=== PATIENT | female | born 1990 | race Caucasian/White ===

== ENCOUNTER 2019-06-07 21:43 | Emergency (ER) | payer MEDICAID, SELFPAY ==
[2019-06-07 21:48] VITALS: BP 119/67; PULSE 65; RESP 16; TEMP 37.1; O2SAT 99
--- NOTE | 2019-06-07 21:49 | ED.GENADUL_ITS ---
Discharge Plan Disposition Patient Disposition: HOME Condition: Stable Discharge Details Chief Complaint: Orthopedic Clinical Impression: Right wrist sprain Primary Care Provider: Maria Buenrostro ED Provider: Monico Carrillo Home Meds and New Rx's Prescriptions: Continued albuterol sulfate 90 mcg/actuation Hfa Aerosol Inhaler 2 puff INHALATION Q6H PRNRF: 0 Symbicort 80-4.5 mcg/actuation Hfa Aerosol Inhaler 2 puff INHALATION BID PRN (Reason: asthma) RF: 0 Discharge Instructions Instructions: Wrist Sprain (ED) Additional Instructions: If pain continues in a week see your primary care provider if you have pain you can take 1000mg tylenol and 600mg ibuprofen every 6 hours for pain Medical Decision Making 29 yo female comes in with one week of right wrist and hand pain s/p punching shower wall a week ago. 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 Has no swelling, full rom of the wrist and hand but has pain in the anterior right wrist and mid right hand without palpable or visible deformity, normal sensation and pulses. Suspect contusion vs sprain but will xray to eval for fx. No snuffbox tenderness so doubt scahpoid fx. xray negative on mine and vrad red. suspect sprain, will place in wrist splint and advised to f/u with pcp if pain continues in a week Differential Diagnosis Differential Diagnosis: sprain, strain, fx, contusion Imaging Data Radiologic Study: Attestation: I personally reviewed and interpreted this imaging study as follows: Imaging: X-Ray Radiologist's impression: no acute findings HPI General Mode of arrival: ambulatory . Date/Time Provider Initiated Documentation: 06/07/19 21:44 . Limitations to Documentation: no limitations . Information obtained by: patient . History of Present Illness 29 year old F presents to the emergency department with the chief complaint of right wrist pain, described as moderate, and is localized to the right and upper extremity. Patient reports no radiation. Patient started experiencing this week(s) (1) and it has been constant. No relieving factors improve symptom(s), No exacerbating factors reported . Patient did receive the following treatments prior to arrival, none Related Data Home Medications Medication Instructions Recorded Confirmed Symbicort 2 puff INHALATION BID PRN 06/07/19 06/07/19 albuterol sulfate 2 puff INHALATION Q6H PRN 06/07/19 06/07/19 Allergies Allergy/AdvReac Type Severity Reaction Status Date / Time latex Allergy Severe Itching Unverified 06/07/19 21:50 Sulfa (Sulfonamide Allergy Severe Skin Rash Unverified 06/07/19 21:50 Antibiotics) Review of Systems All systems reviewed & are unremarkable except as noted in HPI and below Constitutional Constitutional: Denies chills, Denies fever(s) and Denies weakness ENT Ears, Nose, Mouth, and Throat: Denies change in voice Cardiovascular Cardiovascular: Denies chest pain and Denies dyspnea Respiratory Respiratory: Denies cough and Denies dyspnea Gastrointestinal Gastrointestinal: Denies abdominal pain, Denies nausea and Denies vomiting Musculoskeletal Musculoskeletal: Denies joint swelling Neurologic Neurologic: Denies weakness PENDING SALE TO [facility] Medical History (Updated 06/07/19 @ 21:53 by La Nena Choe) Asthma (Chronic) Costochondritis (Acute) Surgical History (Updated 06/07/19 @ 21:53 by La Nena Choe) History of section (Chronic) History of partial hysterectomy (Acute) Hx of cholecystectomy (Chronic) Social History Smoking/Tobacco Use Status: Never Alcohol Intake: never Substance use type: does not use Additional Social history: pt is not alone; interacts well with friend at bedside Exam Const General: no acute distress Orientation: alert HENMT Head: normal to inspection Ears: external ears normal General nose exam: external nose normal Mouth: moist mucous membranes Eyes General: appearance normal, both eyes and all related structures Neck Neck: normal visual inspection Resp Effort & Inspection: normal respiratory effort and able to speak in complete sentences Cardio Rate: regular rate Skin General skin exam: no rashes or lesions noted Neuro General: alert and oriented x3 Extrem General: normal to inspection Psych Mental Status: mental status grossly normal
--- NOTE | 2019-06-07 22:02 | DI.RAD_ITS ---
EXAM: XR WRIST RT COMPLETE CLINICAL HISTORY: pain, s/p punching wall a week ago. TECHNIQUE: 2D digital imaging was performed. COMPARISON: No exams were available for comparison FINDINGS: BONES: No acute fracture is present. No bony destructive lesion is seen. JOINTS: The carpal bones are normally aligned. SOFT TISSUE: Normal. IMPRESSION: Unremarkable radiographs of the right wrist.
--- NOTE | 2019-06-07 22:19 | DI.VRAD_ITS ---
PROCEDURE INFORMATION: Exam: XR Right Wrist Exam date and time: 06/07/2019 10:04 PM Age: 29 years old Clinical indication: Other: Pain S/P punching wall a week ago TECHNIQUE: Imaging protocol: XR Right wrist. Views: 3 or more views. COMPARISON: No relevant prior studies available. FINDINGS: Bones/joints: There is no fracture or dislocation. Alignment and joint spaces are within normal limits. Soft tissues: Unremarkable as seen. IMPRESSION: No acute findings. Dictated and Authenticated by: Renzo Allen MD. Ordering:CASSANDRA Marc MD
== END 2019-06-07 22:30 | disposition home or self-care (01) ==
PROVIDERS: Emergency Provider Emergency Medicine; PCP Nurse Practitioner Family
DX: S63.501A Unspecified sprain of right wrist, initial encounter (principal); W22.09XA Striking against other stationary object, initial encounter
CPT/HCPCS: 99283; 73110; L3807

== ENCOUNTER 2019-06-15 08:57 | Emergency (ER) | payer MEDICAID, SELFPAY ==
[2019-06-15 09:02] VITALS: BP 111/69; PULSE 86; RESP 16; TEMP 36.9; O2SAT 99
--- NOTE | 2019-06-15 09:29 | ED.GENADUL_ITS ---
Discharge Plan Disposition Patient Disposition: HOME Condition: Stable Discharge Details Chief Complaint: Orthopedic Clinical Impression: Contusion of left hip Primary Care Provider: Kimberley,Local ED Provider: Elidia Ponce Home Meds and New Rx's Prescriptions: Continued albuterol sulfate 90 mcg/actuation Hfa Aerosol Inhaler 2 puff INHALATION Q6H PRNRF: 0 Symbicort 80-4.5 mcg/actuation Hfa Aerosol Inhaler 2 puff INHALATION BID PRN (Reason: asthma) RF: 0 Discharge Instructions Instructions: Contusion in Adults (ED) Additional Instructions: Rest, ice and elevate your left hip as much as possible. Alternate tylenol and motrin as needed and directed for pain. Follow-up with your primary care doctor in 1 week as needed. Return to the emergency department with any worsening or new concerning symptoms. Discharge Data Discharge Physician: Elidia Ponce Medical Decision Making 0910 -- 29-year-old female presents with left hip pain after slip and fall on ice last night. Patient denies head injury, other extremity pain, chest pain, abdominal pain, neck or back pain. Patient's main complaint is left hip pain which is worse with weightbearing. She has an area of ecchymosis to her left lateral hip but no obvious deformity. She is neurovascularly intact. She has a history of hysterectomy. Will give a dose of ibuprofen and send for left hip x-ray. 1025 --x-rays negative. Patient advised on the importance of RICE, tylenol, mot rin. Advised to follow up with the primary care doctor for re-evaluation. Usual and customary return precautions given prior to discharge. Medical Records Medical records reviewed: Yes I reviewed the patient's medical records. Imaging Data Radiologic Study: Radiologist's impression: XR Left Hip with Pelvis when Performed Exam date and time: 06/15/2019 9:46 AM Age: 29 years old Clinical indication: S/P fall onto L hip, R/O acute fracture TECHNIQUE: Imaging protocol: XR Left hip with pelvis when performed. Views: 2 or 3 views. COMPARISON: No relevant prior studies available. FINDINGS: Bones/joints: No fracture. No dislocation. No hip joint space narrowing. The symphysis pubis and sacroiliac joints are not diastatic. There is sacralization of L5 segment on the left. Pelvic tilt. Soft tissues: No acute soft tissue abnormality. IMPRESSION: No fracture. HPI General Mode of arrival: ambulatory . Date/Time Provider Initiated Documentation: 06/15/19 09:11 . Limitations to Documentation: no limitations . Information obtained by: patient . History of Present Illness 29 year old F presents to the emergency department with the chief complaint of Left hip pain, Patient started experiencing this day(s) (1) and it has been constant. Immobilization improves symptom(s), Movement worsens symptoms . Patient notes no other symptoms.. Patient did receive the following treatments prior to arrival, none Related Data Home Medications Medication Instructions Recorded Confirmed Symbicort 2 puff INHALATION BID PRN 06/07/19 06/15/19 albuterol sulfate 2 puff INHALATION Q6H PRN 06/07/19 06/15/19 Allergies Allergy/AdvReac Type Severity Reaction Status Date / Time latex Allergy Severe Itching Unverified 06/15/19 09:07 Sulfa (Sulfonamide Allergy Severe Skin Rash Unverified 06/15/19 09:07 Antibiotics) General Stated Complaint: Orthopedic NICO: 4 Review of Systems All systems reviewed & are unremarkable except as noted in HPI and below PFSH Medical History Asthma (Chronic) Costochondritis (Acute) Surgical History History of section (Chronic) History of partial hysterectomy (Acute) Hx of cholecystectomy (Chronic) Social History Smoking/Tobacco Use Status: Never Alcohol Intake: current Alcohol Intake frequency: a few times a month Alcohol type: beer and wine Drug use: Never Substance use type: does not use Additional Social history: pt is not alone; interacts well with friend at bedside Exam Const General: cooperative, healthy appearing and no acute distress HENMT Head: normal to inspection Face and sinus: normal facial exam Eyes General: appearance normal, both eyes and all related structures Pupils: PERRL EOM: EOM intact bilaterally Neck Neck: normal visual inspection and No submandibular swelling Lymphatic: no lymphadenopathy noted Chest Chest: normal inspection of the chest and no tenderness Resp Effort & Inspection: normal respiratory effort and able to speak in complete sentences Auscultation: clear to auscultation bilaterally Cardio Rate: regular rate Rhythm: regular rhythm GI Inspection: normal to inspection Palpation: soft, not firm, not rigid and nontender Auscultation: normal bowel sounds Back/Spine/Pelvis Thoracic/Lumbar Spine: thoracic and lumbar spine normal to inspection Back/spine/pelvis image: 1. 3x3cm area of ecchymoses. No open wounds. Skin General skin exam: no rashes or lesions noted Neuro General: alert, awake and oriented x3 Cognition: normal cognition Speech: speech normal Motor: muscle tone normal throughout Sensory Exam: no sensory deficits noted Extrem General: full ROM, normal capillary refill, no calf tenderness bilaterally and no edema Other: Pain in left hip with range of motion. Tenderness to palpation of left lateral hip. Left DP/PT pulses intact. Psych Appearance: grossly normal Mental Status: mental status grossly normal Speech and Movement: speech and movement normal Affect: normal affect Course Vital Signs Vital signs: Vital Signs Temperature 98.4 F 06/15/19 09:02 Pulse 86 06/15/19 09:02 Respiratory Rate 16 06/15/19 09:02 Blood Pressure 111/69 06/15/19 09:02 Pulse Oximetry 99 06/15/19 09:02 Temperature 98.4 F 06/15/19 09:02 Temperature Source Temporal Artery Scan 06/15/19 09:02 Pulse 86 06/15/19 09:02 Respiratory Rate 16 06/15/19 09:02 Respiratory Effort Non-Labored 06/15/19 09:05 Blood Pressure 111/69 06/15/19 09:02 Blood Pressure Position Sitting 06/15/19 09:02 Pulse Oximetry 99 06/15/19 09:02 Oxygen Delivery Method Room Air 06/15/19 09:02 Oxygen Flow Rate 0 06/15/19 09:02 Pain Level 8 06/15/19 09:05
[2019-06-15] MEDS: Ibuprofen 600 MG TAB PO (09:39)
--- NOTE | 2019-06-15 09:42 | DI.RAD_ITS ---
EXAM: XR HIP LT COMPLETE AP PELVIS INDICATION: s/p fall onto L hip, r/o acute fracture. COMPARISON: No exams were available for comparison TECHNIQUE: 2D digital imaging was performed. FINDINGS: No acute fracture or dislocation. The soft tissues are unremarkable. IMPRESSION: No acute fracture or dislocation.
--- NOTE | 2019-06-15 10:06 | DI.VRAD_ITS ---
PROCEDURE INFORMATION: Exam: XR Left Hip with Pelvis when Performed Exam date and time: 06/15/2019 9:46 AM Age: 29 years old Clinical indication: S/P fall onto L hip, R/O acute fracture TECHNIQUE: Imaging protocol: XR Left hip with pelvis when performed. Views: 2 or 3 views. COMPARISON: No relevant prior studies available. FINDINGS: Bones/joints: No fracture. No dislocation. No hip joint space narrowing. The symphysis pubis and sacroiliac joints are not diastatic. There is sacralization of L5 segment on the left. Pelvic tilt. Soft tissues: No acute soft tissue abnormality. IMPRESSION: No fracture. Dictated and Authenticated by: Jared Alcala MD. Ordering:ORIANA Brenner MD
== END 2019-06-15 10:37 | disposition home or self-care (01) ==
PROVIDERS: Emergency Provider Physician Assistant
DX: S70.01XA Contusion of right hip, initial encounter (principal); W00.0XXA Fall on same level due to ice and snow, initial encounter
CPT/HCPCS: 99283; 73502

== ENCOUNTER 2020-08-04 12:25 | Emergency (ER) | payer MEDICAID, SELFPAY ==
[2020-08-04] VITALS (38 sets, daily range): BP systolic 111–130; BP diastolic 44–118; PULSE 64–90; RESP 11–21; TEMP 36.7–36.9; O2SAT 96–100
--- NOTE | 2020-08-04 12:15 | RT.EKG_ITS ---
APPROVED REPORT Exam: Resting ECG Patient Location: E HR:78 bpm ECG Measurements Heart Rate 78 AXIS SD 138 P 87 QRSd 90 QRS 37 QT 367 T 61 QTc 418 Conclusion Sinus rhythm...normal P axis, V-rate 60- 99 I have reviewed and interpreted ECG and agree with software generated interpretation.
[2020-08-04] MEDS: Normal Saline Flush 10 ML SYR IVP (12:38)
--- NOTE | 2020-08-04 12:51 | ED.GENADUL_ITS ---
Discharge Plan Disposition Patient Disposition: HOME Condition: Stable Discharge Details Clinical Impression: Paresthesia, Arm pain, left, Leg pain, left, Symptoms of upper respiratory infection (URI) Primary Care Provider: Kimberley,Local ED Provider: Elidia Ponce Home Meds and New Rx's Prescriptions: Continued albuterol sulfate 90 mcg/actuation Hfa Aerosol Inhaler 2 puff INHALATION Q6H PRNRF: 0 budesonide-formoterol [Symbicort] 80-4.5 mcg/actuation Hfa Aerosol Inhaler 2 puff INHALATION BID PRN (Reason: asthma) RF: 0 cyclobenzaprine 10 mg Tablet 10 mg PO PRN PRNRF: 0 Discharge Instructions Instructions: Upper Respiratory Infection (ED), Paresthesia (ED), Lumbar Radiculopathy (ED), Cervical Radiculopathy (ED) Additional Instructions: Drink plenty of fluids and get plenty of rest. Alternate tylenol and motrin as needed and directed for pain. Take your steroids and antiviral prescriptions as given by your primary care doctor as directed until finished. Call your primary care doctor's office tomorrow to schedule follow-up appointment for reevaluation and for referral to neurology if your symptoms do not improve or worsen. Return immediately to the emergency department if you develop any worsening or new concerning symptoms. Referrals: Gali Mccloud MD [ [facility] STAFF PHYSICIAN] - Discharge Data Discharge Date/Time-TO BE ENTERED AT DEPARTURE: 08/04/20 17:36 Discharge Physician: Elidia Ponce Medical Decision Making 1245 -- 30-year-old female with a history of asthma, costochondritis and fibromyalgia presents for resolving cold symptoms from a few days ago, headache and left facial droop for the past 2 days, and left-sided head and arm and leg numbness and weakness for the past hour. EKG on arrival notes a rate of 78, sinus, no STEMI, nondiagnostic. She has an abnormal speech affect and appears to be stuttering her words but this does not appear slurred and she is oriented x3. Patient is able to move her left upper and lower extremities but appears to have weakness that seems most likely associated with pain. No facial droop or eyelid drooping noted. She is neurovascularly intact. She appears nontoxic. No meningeal signs. Differential diagnosis includes acute CVA, meningitis, coronavirus, fibromyalgia flare, electrolyte abnormality, dehydration, viral syndrome. Will place an IV, screening labs, urinalysis, CTA head and neck, chest x-ray. Will give IV fluids, IV Tylenol, Decadron and reassess. 1450 --labs and imaging reviewed. Normal white blood cell count. Lactate 2.3. Troponin negative. CRP negative. Urinalysis negative. Rapid Covid negative. CTA head and neck negative. Chest x-ray negative. Will refer for MRI/MRA brain to further assess soft tissue including acute ischemic CVA, MS. Patient reassessed and she is feeling better. She has been able to ambulate and move her left arm and leg much better. She is complaining still of some pain in her left arm and leg. This presentation does not appear consistent with acute stroke. Discussed that I do not think this is consistent with meningitis but that diagnosis of this would involve lumbar puncture which patient is refusing at this time. 1720 --MRI/MRA negative for acute findings. Patient has normal speech and is moving all extremities normally. As her paresthesias were associated with pain, suspect this may be more of a radiculopathy rather than neurologic. Patient feels much better and feels good to go home. She was able to ambulate to the commode in the room without difficulty. Repeat lactate normalized. 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 Medical Records Medical records reviewed: Yes I reviewed the patient's medical records. Imaging Data Radiologic Study: Radiologist's impression: CT BRAIN NECK CTA CLINICAL HISTORY: Left-sided weakness and numbness, r/o acute cva. TECHNIQUE: Imaging Protocol: Axial CT angiography was performed with multi- slice acquisition and multi-planar and/or 3D reconstructions. CONTRAST MATERIAL: Intravenous: Omnipaque 350 Contrast volume:85cc COMPARISON: No exams were available for comparison FINDINGS: CTA Neck W: Aortic arch anatomy: Conventional. Anterior circulation: There is no significant atherosclerotic disease in the common carotid arteries nor at the level of the carotid bifurcations. There is also no significant stenosis at the origin and more distal aspects of the internal carotid arteries in both sides of the neck. These vessels are also demonstrated to be patent in the skull base-carotid canals. Posterior circulation: Both vertebral arteries originate in conventional fashion off of the subclavian arteries. There is no significant stenosis at their origins nor within the foramen transverse area and both exhibit normal luminal diameters within the foramen transverse area with no evidence of intraluminal thrombus nor vertebral artery dissection. At the skull base both vertebral arteries are thin as a contribute to the formation of the basilar artery. CTA Brain W: Anterior circulation: Both internal carotid arteries are patent within the skull base-carotid canals as well as within the cavernous sinuses. The supraclinoid aspects of both internal carotid arteries are patent. No aneurysms. Middle cerebral arteries are patent bilaterally out to the sylvian fissure branches. Both A1 segments are patent as are the anterior cerebral arteries and there is no evidence of aneurysm at the level of the anterior communicating artery. Posterior circulation: Basilar artery distally gives off superior cerebellar arteries. Above this level the basilar artery terminates as a patent left posterior cerebral artery. The right posterior cerebral artery arises off of the right superior cerebellar artery approximately 5 millimeters distal to the origin of this vessel. The right posterior cerebral artery also receives flow from a thin posterior communicating artery on the right side of the [id number]. There is no posterior communicating artery on the left side of the [id number]. There are no aneurysms evident. CT BRAIN: There is no evidence of intracranial hemorrhage, mass effect, or shift of midline structures. No extra-axial fluid collections. Ventricles are not enlarged or shifted. There are no ring enhancing lesions in the brain. No obvious abnormal meningeal enhancement. Incidentally noted are post inflammatory retention cysts in the left maxillary sinus, not associated with fluid levels. Other visualized paranasal sinuses are clear. IMPRESSION: 1. Patent carotid arteries in the neck and intracranial compartment. Middle cerebral arteries and anterior cerebral arteries are also patent. 2. Patent vertebral arteries in the neck although they are somewhat thin at the skull base where they contribute to the formation of the basilar artery, this possibly on developmental basis. No evidence of vertebral artery dissection. 3. Some variant anatomy is noted at the level of the origin of the right posterior cerebral artery, as described above. No evidence of intracranial hemorrhage no ring enhancing lesions in the brain. No abnormal meningeal enhancement. XR CHEST 2V PA LATERAL CLINICAL HISTORY: cough, sob, r/o acute disease. TECHNIQUE: 2D digital imaging was performed. COMPARISON: No exams were available for comparison FINDINGS: Heart size is normal. The mediastinum is not widened. Lungs are clear. No infiltrates nor pleural effusions. IMPRESSION: No acute pulmonary findings. MR Angiogram Head Without and With Contrast, Arteries Exam date and time: 08/04/2020 4:34 PM Age: 30 years old Clinical indication: Weakness and other: Left face, arm, leg numb/weak TECHNIQUE: Imaging protocol: MR angiogram head without and with intravenous contrast. Exam focused on the arteries. 3D rendering (Not supervised by radiologist): MIP and/or 3D reconstructed images were created by the technologist. COMPARISON: CT BRAIN NECK CTA 08/04/2020 2:08 PM FINDINGS: ANTERIOR CIRCULATION: Right internal carotid artery: Intracranial segment is patent with no significant stenosis. No aneurysm. Right middle cerebral artery: No occlusion or significant stenosis. No aneurysm. Right anterior cerebral artery: No occlusion or significant stenosis. No aneurysm. Left internal carotid artery: Intracranial segment is patent with no significant stenosis. No aneurysm. Left middle cerebral artery: No occlusion or significant stenosis. No aneurysm. Left anterior cerebral artery: No occlusion or significant stenosis. No aneurysm. POSTERIOR CIRCULATION: Right vertebral artery: No occlusion or significant stenosis. No aneurysm. Left vertebral artery: No occlusion or significant stenosis. No aneurysm. Basilar artery: No occlusion or significant stenosis. No aneurysm. Right posterior cerebral artery: No occlusion or significant stenosis. No aneurysm. Left posterior cerebral artery: No occlusion or significant stenosis. No aneurysm. IMPRESSION: No MRA evidence of intracranial arterial occlusion or significant stenosis. MR Head Without Contrast Exam date and time: 08/04/2020 4:33 PM Age: 30 years old Clinical indication: Weakness, extremity and weakness, facial and other: Face, arm, leg numb/weak; Left TECHNIQUE: Imaging protocol: MR of the head without contrast. 3D rendering (Not supervised by radiologist): MIP and/or 3D reconstructed images were created by the technologist. COMPARISON: CT BRAIN NECK CTA 08/04/2020 2:08 PM FINDINGS: Brain: No intracranial hemorrhage or extra-axial fluid collection. No evidence of mass effect or midline shift. No white matter abnormalities. No restricted diffusion to suggest acute infarct. Cerebral ventricles: Ventricles, cisterns, and sulci are normal. Bones/joints: Unremarkable. Paranasal sinuses: Left maxillary sinus retention cysts. Mastoid air cells: No mastoid effusion. Orbital cavity: Unremarkable. Soft tissues: Unremarkable. IMPRESSION: No acute intracranial findings. Lab Data Lab results reviewed: Yes I reviewed the patient's lab results. Labs: Laboratory Tests Range/Units 08/04/20 08/04/20 08/04/20 12:36 12:36 13:30 WBC (4.4-10.8) 10^3/uL 8.07 RBC (3.93-5.22) 10^6/uL 5.37 H Hgb (11.2-15.7) g/dL 14.0 Hct (36.0-46.0) % 44.0 MCV (80-95) fL 81.9 MCH (27.0-33.0) pg 26.1 L MCHC (32.0-36.0) % 31.8 L RDW (11.7-14.6) % 11.9 Plt Count (130-400) 10^3/uL 128 L MPV (8.0-11.0) fL 14.1 H Immature Gran % 0.4 Neutrophils % 77.0 Lymphocytes % 14.9 Monocytes % 5.1 Eosinophils % 2.1 Basophils % 0.5 Nucleated RBC % % 0 Absolute Neutrophils (1.2-6.7) 10^3/uL 6.22 Absolute Lymphocytes (1.2-3.4) 10^3/uL 1.20 Absolute Monocytes (0.1-0.8) 10^3/uL 0.41 Absolute Eosinophils (0.0-0.7) 10^3/uL 0.17 Absolute Basophils (0.0-0.2) 10^3/uL 0.04 PT (9.3-11.0) sec INR (0.9-1.1) APTT (21.0-27.5) sec D-Dimer (<500) ng/mlFEU VBG Lactate (0.6-1.4) mmol/L Sodium (136-145) mmol/L 141 Potassium (3.5-5.1) mmol/L 3.9 Chloride (98-107) mmol/L 103 Carbon Dioxide (21.0-32.0) mmol/L 26.4 Anion Gap (3-11) mmol/L 11.6 H BUN (7-18) mg/dL 5 L Creatinine (0.55-1.02) mg/dL 0.6 Estimated GFR/1.73 m2 (mL/min/1.73m2) >= 60.00 Glucose (74-106) mg/dL 99 Calcium (8.5-10.1) mg/dL 9.3 Magnesium (1.8-2.4) mg/dL 2.3 Total Bilirubin (0.2-1.0) mg/dL 0.5 AST (15-37) U/L 15 ALT (14-59) U/L 37 Alkaline Phosphatase (46-116) U/L 71 Creatine Kinase (26-192) U/L Troponin I (<0.06) ng/mL < 0.05 C-Reactive Protein (0.0-0.3) mg/dL Total Protein (6.4-8.2) g/dL 8.0 Albumin (3.4-5.0) g/dL 4.2 Urine Color (Yellow) Yellow Urine Clarity (Clear) Clear Urine pH (5-8) 7.0 Ur Specific Dane (1.005-1.025) 1.020 Urine Protein (Negative) mg/dL Negative Urine Ketones (Negative) mg/dL Negative Urine Blood (Negative) Negative Urine Nitrite (Negative) Negative Urine Bilirubin (Negative) Negative Urine Urobilinogen (Up TO 0.2) EU/dL 0.2 Ur Leukocyte Esterase (Negative) Negative Urine Glucose (Negative) mg/dL Negative COVID-19 Source SARS-CoV-2 (PCR) (Negative) Influenza Type A (PCR) (Negative) Influenza Type B (PCR) (Negative) RSV (PCR) (Negative) Range/Units 08/04/20 08/04/20 08/04/20 13:32 13:36 13:36 WBC (4.4-10.8) 10^3/uL RBC (3.93-5.22) 10^6/uL Hgb (11.2-15.7) g/dL Hct (36.0-46.0) % MCV (80-95) fL MCH (27.0-33.0) pg MCHC (32.0-36.0) % RDW (11.7-14.6) % Plt Count (130-400) 10^3/uL MPV (8.0-11.0) fL Immature Gran % Neutrophils % Lymphocytes % Monocytes % Eosinophils % Basophils % Nucleated RBC % % Absolute Neutrophils (1.2-6.7) 10^3/uL Absolute Lymphocytes (1.2-3.4) 10^3/uL Absolute Monocytes (0.1-0.8) 10^3/uL Absolute Eosinophils (0.0-0.7) 10^3/uL Absolute Basophils (0.0-0.2) 10^3/uL PT (9.3-11.0) sec INR (0.9-1.1) APTT (21.0-27.5) sec D-Dimer (<500) ng/mlFEU VBG Lactate (0.6-1.4) mmol/L 2.3 H* Sodium (136-145) mmol/L Potassium (3.5-5.1) mmol/L Chloride (98-107) mmol/L Carbon Dioxide (21.0-32.0) mmol/L Anion Gap (3-11) mmol/L BUN (7-18) mg/dL Creatinine (0.55-1.02) mg/dL Estimated GFR/1.73 m2 (mL/min/1.73m2) Glucose (74-106) mg/dL Calcium (8.5-10.1) mg/dL Magnesium (1.8-2.4) mg/dL Total Bilirubin (0.2-1.0) mg/dL AST (15-37) U/L ALT (14-59) U/L Alkaline Phosphatase (46-116) U/L Creatine Kinase (26-192) U/L 53 Troponin I (<0.06) ng/mL C-Reactive Protein (0.0-0.3) mg/dL 0.19 Total Protein (6.4-8.2) g/dL Albumin (3.4-5.0) g/dL Urine Color (Yellow) Urine Clarity (Clear) Urine pH (5-8) Ur Specific Dane (1.005-1.025) Urine Protein (Negative) mg/dL Urine Ketones (Negative) mg/dL Urine Blood (Negative) Urine Nitrite (Negative) Urine Bilirubin (Negative) Urine Urobilinogen (Up TO 0.2) EU/dL Ur Leukocyte Esterase (Negative) Urine Glucose (Negative) mg/dL COVID-19 Source Nasopharynx SARS-CoV-2 (PCR) (Negative) Negative Influenza Type A (PCR) (Negative) Negative Influenza Type B (PCR) (Negative) Negative RSV (PCR) (Negative) Negative Range/Units 08/04/20 08/04/20 13:36 16:43 WBC (4.4-10.8) 10^3/uL RBC (3.93-5.22) 10^6/uL Hgb (11.2-15.7) g/dL Hct (36.0-46.0) % MCV (80-95) fL MCH (27.0-33.0) pg MCHC (32.0-36.0) % RDW (11.7-14.6) % Plt Count (130-400) 10^3/uL MPV (8.0-11.0) fL Immature Gran % Neutrophils % Lymphocytes % Monocytes % Eosinophils % Basophils % Nucleated RBC % % Absolute Neutrophils (1.2-6.7) 10^3/uL Absolute Lymphocytes (1.2-3.4) 10^3/uL Absolute Monocytes (0.1-0.8) 10^3/uL Absolute Eosinophils (0.0-0.7) 10^3/uL Absolute Basophils (0.0-0.2) 10^3/uL PT (9.3-11.0) sec 9.9 INR (0.9-1.1) 1.0 APTT (21.0-27.5) sec 25.2 D-Dimer (<500) ng/mlFEU 179 VBG Lactate (0.6-1.4) mmol/L 1.4 Sodium (136-145) mmol/L Potassium (3.5-5.1) mmol/L Chloride (98-107) mmol/L Carbon Dioxide (21.0-32.0) mmol/L Anion Gap (3-11) mmol/L BUN (7-18) mg/dL Creatinine (0.55-1.02) mg/dL Estimated GFR/1.73 m2 (mL/min/1.73m2) Glucose (74-106) mg/dL Calcium (8.5-10.1) mg/dL Magnesium (1.8-2.4) mg/dL Total Bilirubin (0.2-1.0) mg/dL AST (15-37) U/L ALT (14-59) U/L Alkaline Phosphatase (46-116) U/L Creatine Kinase (26-192) U/L Troponin I (<0.06) ng/mL C-Reactive Protein (0.0-0.3) mg/dL Total Protein (6.4-8.2) g/dL Albumin (3.4-5.0) g/dL Urine Color (Yellow) Urine Clarity (Clear) Urine pH (5-8) Ur Specific Dane (1.005-1.025) Urine Protein (Negative) mg/dL Urine Ketones (Negative) mg/dL Urine Blood (Negative) Urine Nitrite (Negative) Urine Bilirubin (Negative) Urine Urobilinogen (Up TO 0.2) EU/dL Ur Leukocyte Esterase (Negative) Urine Glucose (Negative) mg/dL COVID-19 Source SARS-CoV-2 (PCR) (Negative) Influenza Type A (PCR) (Negative) Influenza Type B (PCR) (Negative) RSV (PCR) (Negative) ECG Data Attestation: I personally reviewed and interpreted this ECG (s) as follows: Interpretation: Rate of 78, sinus, no acute ST elevation or depression. CO 138. QRS 90. QTc 418. HPI General Mode of arrival: wheelchair . Date/Time Provider Initiated Documentation: 08/04/20 12:27 . Limitations to Documentation: no limitations . Information obtained by: patient . HPI Narrative: Patient is a 30-year-old female with a history of asthma and fibromyalgia presents with cold-like symptoms a few days ago which have since improved, then development of headache and left-sided facial droop 2 days ago, then onset of left facial and left-sided numbness 1 hour ago while sitting in a car. 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 She had a Covid swab at [facility] 2 hours ago and does not yet know the result. She states her headache feels like a sharp current to her brain. She admits to left-sided neck, diffuse back, worse on the left pain, and some pain in her left arm and left leg. She states she feels that she is also having difficulty speaking and feels confused. She denies any known fever, productive cough, chest pain, abdominal pain, vomiting, urinary symptoms, recent travel or recent known sick contacts. Related Data Home Medications Medication Instructions Recorded Confirmed albuterol sulfate 2 puff INHALATION Q6H PRN 06/07/19 08/04/20 budesonide-formoterol [Symbicort] 2 puff INHALATION BID PRN 06/07/19 08/04/20 cyclobenzaprine 10 mg PO PRN PRN 08/04/20 08/04/20 Allergies Allergy/AdvReac Type Severity Reaction Status Date / Time latex Allergy Severe Itching Unverified 08/04/20 12:43 Sulfa (Sulfonamide Allergy Severe Skin Rash Unverified 08/04/20 12:43 Antibiotics) General Stated Complaint: CVA/TIA NICO: 2 Review of Systems All systems reviewed & are unremarkable except as noted in HPI and below Constitutional Constitutional: Reports as per HPI, Reports body ache(s), Denies chills, Reports fatigue, Denies fever(s), Reports headache(s), Reports poor appetite and Reports weakness Eyes Eyes: Denies blurry vision ENT Ears, Nose, Mouth, and Throat: Denies dizziness, Reports headache(s), Reports nasal congestion, Reports nasal discharge, Denies sore throat and Denies throat swelling Cardiovascular Cardiovascular: Denies chest pain and Reports dyspnea Respiratory Respiratory: Reports cough and Reports dyspnea Gastrointestinal Gastrointestinal: Denies abdominal pain, Denies diarrhea and Denies vomiting Genitourinary Genitourinary: Denies hematuria and Denies dysuria Musculoskeletal Musculoskeletal: Reports back pain, Reports numbness and Reports tingling Integumentary/Breasts Skin/Breast: Denies lesions and Denies rash Neurologic Neurologic: Denies dizziness, Reports headache(s), Reports localized weakness, Reports numbness, Reports tingling and Reports weakness Endocrine Endocrine: Reports fatigue Allergic/Immunologic Allergic/Immunologic: Denies throat swelling [facility] Medical History (Updated 08/04/20 @ 17:25 by Elidia Ponce DO) Asthma Costochondritis Surgical History History of section History of partial hysterectomy Hx of cholecystectomy Social History Smoking/Tobacco Use Status: Never Smoking risk assessment performed?: Yes Alcohol Intake: current Alcohol Intake frequency: a few times a month Alcohol type: beer and wine Drug use: Never Substance use type: does not use Do you feel safe at home: Yes Do you feel safe in your relationship?: Yes Exam Const General: cooperative and healthy appearing Orientation: alert and awake HENMT Head: normal to inspection Ears: hearing grossly normal bilaterally, external ears normal and TM's normal bilaterally General nose exam: external nose normal Face and sinus: normal facial exam Mouth: oral mucosae normal Teeth and gingiva: dentition normal Throat: posterior oropharynx normal Eyes General: appearance normal, both eyes and all related structures Eyelids: eyelids normal Pupils: PERRL EOM: EOM intact bilaterally Neck Neck: normal visual inspection Lymphatic: no lymphadenopathy noted Chest Chest: normal inspection of the chest Resp Effort & Inspection: normal respiratory effort and able to speak in complete sentences Auscultation: clear to auscultation bilaterally Cardio Rate: regular rate Rhythm: regular rhythm GI Inspection: normal to inspection Palpation: soft, not firm, no guarding, no hepatosplenomegaly, no masses and nontender Auscultation: normal bowel sounds Back/Spine/Pelvis Back: no CVA tenderness Skin General skin exam: no rashes or lesions noted Neuro General: patient alert and patient awake Cognition: normal cognition Speech: speech normal Gait: normal gait Motor: muscle tone normal throughout Sensory Exam: no sensory deficits noted Extrem General: normal to inspection, full ROM and capillary refill normal Psych Appearance: grossly normal Mental Status: mental status grossly normal Speech and Movement: speech and movement normal Affect: normal affect Thought Process: normal Course Vital Signs Vital signs: Vital Signs Temperature 98.4 F 08/04/20 12:38 Pulse 76 08/04/20 12:38 Respiratory Rate 12 08/04/20 12:38 Blood Pressure 124/80 08/04/20 12:38 Pulse Oximetry 99 08/04/20 12:38 Temperature 98.4 F 08/04/20 12:38 Temperature Source Skin 08/04/20 12:38 Pulse 76 08/04/20 12:38 Respiratory Rate 12 08/04/20 12:38 Respiratory Effort 08/04/20 12:48 Blood Pressure 124/80 08/04/20 12:38 Pulse Oximetry 99 08/04/20 12:38 Oxygen Delivery Method Room Air 08/04/20 12:38 Oxygen Flow Rate 0 08/04/20 12:38 Pain Level 5 08/04/20 12:38 Comment 08/04/20 12:38
[2020-08-04] MEDS: Normal Saline 1,000 ML 1000 ML IV ×2 (13:30→15:20)
--- NOTE | 2020-08-04 13:30 | DI.CT_ITS ---
EXAM: CT BRAIN NECK CTA CLINICAL HISTORY: Left-sided weakness and numbness, r/o acute cva. TECHNIQUE: Imaging Protocol: Axial CT angiography was performed with multi-slice acquisition and mu lti-planar and/or 3D reconstructions. CONTRAST MATERIAL: Intravenous: Omnipaque 350 Contrast volume:85cc COMPARISON: No exams were available for comparison FINDINGS: CTA Neck W: Aortic arch anatomy: Conventional. Anterior circulation: There is no significant atherosclerotic disease in the common carotid arteries nor at the level of th e carotid bifurcations. There is also no significant stenosis at the origin and more distal aspects of the internal carotid arteries in both sides of the neck. These vessels are also demonstrated to b e patent in the skull base-carotid canals. Posterior circulation: Both vertebral arteries originate in conventional fashion off of the subclavian arteries. There is n o significant stenosis at their origins nor within the foramen transverse area and both exhibit betsy l luminal diameters within the foramen transverse area with no evidence of intraluminal thrombus nor vertebral artery dissection. At the skull base both vertebral arteries are thin as a contribute to the formation of the basilar ar [place]. CTA Brain W: Anterior circulation: Both internal carotid arteries are patent within the skull base-carotid canals as well as within the cavernous sinuses. The supraclinoid aspects of both internal carotid arteries are patent. No aneury sms. Middle cerebral arteries are patent bilaterally out to the sylvian fissure branches. Both A1 s egments are patent as are the anterior cerebral arteries and there is no evidence of aneurysm at the level of the anterior communicating artery. Posterior circulation: Basilar artery distally gives off superior cerebellar arteries. Above this level the basilar artery terminates as a patent left posterior cerebral artery. The right posterior cerebral artery arises of f of the right superior cerebellar artery approximately 5 millimeters distal to the origin of this ve ssel. The right posterior cerebral artery also receives flow from a thin posterior communicating art rey on the right side of the [id number]. There is no posterior communicating artery on the lef t side of the [id number]. There are no aneurysms evident. CT BRAIN: There is no evidence of intracranial hemorrhage, mass effect, or shift of midline structures. No ext ra-axial fluid collections. Ventricles are not enlarged or shifted. There are no ring enhancing les ions in the brain. No obvious abnormal meningeal enhancement. Incidentally noted are post inflammatory retention cysts in the left maxillary sinus, not associated with fluid levels. Other visualized paranasal sinuses are clear. IMPRESSION: 1. Patent carotid arteries in the neck and intracranial compartment. Middle cerebral arteries and an terior cerebral arteries are also patent. 2. Patent vertebral arteries in the neck although they are somewhat thin at the skull base where the y contribute to the formation of the basilar artery, this possibly on developmental basis. No eviden ce of vertebral artery dissection. 3. Some variant anatomy is noted at the level of the origin of the right posterior cerebral artery, as described above. No evidence of intracranial hemorrhage no ring enhancing lesions in the brain. No abnormal meningeal enhancement. If clinically indicated follow-up MRI/MRA can be performed. RADIATION DOSE DELIVERED: 1,769.24mGy.cm Total DLP DATA REPOSITORY: All CT scans at this facility are submitted to the National Radiology Data Registry (NRDR) Dose Index Registry (DIR) with the [employer] (ACR). RADIATION OPTIMIZATION: All CT scans at this facility use at least one of these dose optimization te chniques: automated exposure control; mA and/or kV adjustment per patient size (includes targeted exa ms where dose is matched to clinical indication); or iterative reconstruction.
[2020-08-04] MEDS: Dexamethasone 10 MG/ML VIAL IVP (13:37)
[2020-08-04 13:42] LABS: Lactate 2.3 mmol/L (0.6-1.4)
[2020-08-04 13:45] LABS: Bilirubin Negative (Negative); Blood Negative (Negative); Clarity Clear (Clear); Glucose Negative (Negative); Ketones Negative (Negative); Leukocyte Esterase Negative (Negative); Nitrite Negative (Negative); Urobilinogen 0.2 EU/dL (Up TO 0.2)
[2020-08-04 13:45] LABS: Source Nasopharynx
[2020-08-04 13:46] LABS: Abs Immature Grans 0.03 10^3/uL (0.0-0.06); Absolute Basophil Count 0.04 10^3/uL (0.0-0.2); Absolute Eosinophil Count 0.17 10^3/uL (0.0-0.7); Absolute Monocyte Count 0.41 10^3/uL (0.1-0.8); Absolute Neutrophil Count 6.22 10^3/uL (1.2-6.7); Basophils % 0.5; Eosinophils % 2.1; Immature Grans % 0.4; Lymphocytes % 14.9; MCH 26.1 pg (27.0-33.0); MCHC 31.8 % (32.0-36.0); MCV 81.9 fL (80-95); MPV 14.1 fL (8.0-11.0); Monocytes % 5.1; Nucleated RBC 0 %; Platelet Count 128 10^3/uL (130-400); RBC 5.37 10^6/uL (3.93-5.22); RDW 11.9 % (11.7-14.6); RDW-SD 35.9 fL; WBC 8.07 10^3/uL (4.4-10.8)
[2020-08-04] MEDS: Normal Saline - Diluent 50 ML VIAL IV (14:05)
[2020-08-04] MEDS: Omnipaque 350 MG/ML 100 ML BTL 85 ML IJ (14:05)
[2020-08-04 14:06] LABS: PTT Activated 25.2 sec (21.0-27.5); Prothrombin Time 9.9 sec (9.3-11.0)
[2020-08-04 14:11] LABS: C-Reactive Protein 0.19 mg/dL (0.0-0.3); Creatine Kinase 53 U/L (26-192)
--- NOTE | 2020-08-04 14:20 | DI.RAD_ITS ---
EXAM: XR CHEST 2V PA LATERAL CLINICAL HISTORY: cough, sob, r/o acute disease. TECHNIQUE: 2D digital imaging was performed. COMPARISON: No exams were available for comparison FINDINGS: Heart size is normal. The mediastinum is not widened. Lungs are clear. No infiltrates nor pleural effusions. IMPRESSION: No acute pulmonary findings. DATA REPOSITORY: RADIATION DOSE DELIVERED:
[2020-08-04 14:22] LABS: ALT 37 U/L (14-59); AST 15 U/L (15-37); Albumin 4.2 g/dL (3.4-5.0); Alkaline Phosphatase 71 U/L (46-116); Anion Gap 11.6 mmol/L (3-11); BUN 5 mg/dL (7-18); Bilirubin, Total 0.5 mg/dL (0.2-1.0); CO2 26.4 mmol/L (21.0-32.0); CREATININE 0.6 mg/dL (0.55-1.02); Calcium 9.3 mg/dL (8.5-10.1); Chloride 103 mmol/L (98-107); Glucose 99 mg/dL (74-106); Magnesium 2.3 mg/dL (1.8-2.4); Potassium 3.9 mmol/L (3.5-5.1); Sodium 141 mmol/L (136-145)
[2020-08-04 14:24] LABS: COVID-19 PCR Negative (Negative); Influenza A PCR Negative (Negative); Influenza B PCR Negative (Negative); RSV PCR Negative (Negative)
[2020-08-04 14:25] LABS: Troponin I < 0.05 ng/mL (<0.06)
[2020-08-04] MEDS: ACETAMINOPHEN 1,000 MG/100 ML BTL 400 MG IVPB (14:40)
--- NOTE | 2020-08-04 14:45 | DI.MRI_ITS ---
EXAM: MR ANGIO BRAIN WO CLINICAL HISTORY: L face/arm/leg numb/weak, r/o acute cva TECHNIQUE: Multiplanar multisequence MRI of the brain was performed. COMPARISON: MR MR BRAIN WO from 08/04/2020 MR MR BRAIN WO from 08/04/2020 FINDINGS: CEREBRAL PARENCHYMA: No evidence of intracranial hemorrhage, mass effect nor shift of midline structu re. No extraaxial fluid collections. Ventricles are not enlarged nor shifted. There is no significant focal signal abnormality in the cerebellar hemispheres nor within the ho, m idbrain, and thalami. There is no abnormal signal abnormality in the periventricular white matter. There is no significant focal signal abnormality evident on diffusion imaging to suggest acute ischem ic event. 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 PITUITARY GLAND: No obvious mass nor parasellar abnormality. No obvious abnormality in the cavernous sinuses. FLOW VOIDS: The expected flow void are noted. No evidence of obvious aneurysm nor obvious vascular ma lformation. PARANASAL SINUSES: Post inflammatory retention cysts are noted in the left maxillary sinus not associ ated with a fluid level. Right maxillary sinus is clear as are the sphenoid and frontal sinuses and ethmoidal air cells. ORBITS: No obvious findings. IMPRESSION: No acute intracranial findings on this noninfused MRI scan of the brain. Incidentally noted is mild cerebellar tonsillar ectopia. See separate brain MRA report DATA REPOSITORY:
--- NOTE | 2020-08-04 14:45 | DI.MRI_ITS ---
EXAM: MR BRAIN WO CLINICAL HISTORY: L facial/arm/leg numbness/weakness TECHNIQUE: Multiplanar multisequence MRI of the brain was performed. Both noninfused and contrast i nfused sequences were performed. IV Contrast injected was cc Dotarem. COMPARISON: CR CT scan of the brain performed earlier today FINDINGS: CEREBRAL PARENCHYMA: No evidence of intracranial hemorrhage, mass effect nor shift of midline structu re. No extraaxial fluid collections. Ventricles are not enlarged nor shifted. There is no significant focal signal abnormality in the cerebellar hemispheres nor within the ho, m idbrain, and thalami. There is no abnormal signal abnormality in the periventricular white matter. 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 PITUITARY GLAND: No mass nor parasellar abnormality. No obvious abnormality in the cavernous sinuses. FLOW VOIDS: The expected flow void are noted. No evidence of obvious aneurysm nor obvious vascular ma lformation. PARANASAL SINUSES: Retention cyst in left maxillary sinus. ORBITS: No obvious abnormal findings. IMPRESSION: 1. No acute intracranial findings on this non infused MRI scan of the brain. 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 2. See separate MRA dictation DATA REPOSITORY:
[2020-08-04] MEDS: Ketorolac 30 MG/ML VIAL IVP (15:02)
[2020-08-04 15:08] LABS: D-Dimer 179 ng/mlFEU (<500)
[2020-08-04 16:48] LABS: Lactate 1.4 mmol/L (0.6-1.4)
--- NOTE | 2020-08-04 17:01 | DI.VRAD_ITS ---
PROCEDURE INFORMATION: Exam: MR Head Without Contrast Exam date and time: 08/04/2020 4:33 PM Age: 30 years old Clinical indication: Weakness, extremity and weakness, facial and other: Face, arm, leg numb/weak; Left TECHNIQUE: Imaging protocol: MR of the head without contrast. 3D rendering (Not supervised by radiologist): MIP and/or 3D reconstructed images were created by the technologist. COMPARISON: CT BRAIN NECK CTA 08/04/2020 2:08 PM FINDINGS: Brain: No intracranial hemorrhage or extra-axial fluid collection. No evidence of mass effect or midline shift. No white matter abnormalities. No restricted diffusion to suggest acute infarct. Cerebral ventricles: Ventricles, cisterns, and sulci are normal. Bones/joints: Unremarkable. Paranasal sinuses: Left maxillary sinus retention cysts. Mastoid air cells: No mastoid effusion. Orbital cavity: Unremarkable. Soft tissues: Unremarkable. IMPRESSION: No acute intracranial findings. Dictated and Authenticated by: Anthony Fernandes MD. Ordering:ORIANA Brenner MD
--- NOTE | 2020-08-04 17:03 | DI.VRAD_ITS ---
PROCEDURE INFORMATION: Exam: MR Angiogram Head Without and With Contrast, Arteries Exam date and time: 08/04/2020 4:34 PM Age: 30 years old Clinical indication: Weakness and other: Left face, arm, leg numb/weak TECHNIQUE: Imaging protocol: MR angiogram head without and with intravenous contrast. Exam focused on the arteries. 3D rendering (Not supervised by radiologist): MIP and/or 3D reconstructed images were created by the technologist. COMPARISON: CT BRAIN NECK CTA 08/04/2020 2:08 PM FINDINGS: ANTERIOR CIRCULATION: Right internal carotid artery: Intracranial segment is patent with no significant stenosis. No aneurysm. Right middle cerebral artery: No occlusion or significant stenosis. No aneurysm. Right anterior cerebral artery: No occlusion or significant stenosis. No aneurysm. Left internal carotid artery: Intracranial segment is patent with no significant stenosis. No aneurysm. Left middle cerebral artery: No occlusion or significant stenosis. No aneurysm. Left anterior cerebral artery: No occlusion or significant stenosis. No aneurysm. POSTERIOR CIRCULATION: Right vertebral artery: No occlusion or significant stenosis. No aneurysm. Left vertebral artery: No occlusion or significant stenosis. No aneurysm. Basilar artery: No occlusion or significant stenosis. No aneurysm. Right posterior cerebral artery: No occlusion or significant stenosis. No aneurysm. Left posterior cerebral artery: No occlusion or significant stenosis. No aneurysm. IMPRESSION: No MRA evidence of intracranial arterial occlusion or significant stenosis. Dictated and Authenticated by: Anthony Fernandes MD. Ordering:ORIANA Brenner MD
[2020-08-05 14:56] LABS: ESR 12 mm/hr (<or=20)
== END 2020-08-04 17:36 | disposition home or self-care (01) ==
PROVIDERS: Emergency Provider Physician Assistant
DX: M79.605 Pain in left leg (principal); M79.602 Pain in left arm; R20.2 Paresthesia of skin; R09.89 Other specified symptoms and signs involving the circulatory and respiratory systems; Z20.822 Contact with and (suspected) exposure to COVID-19
CPT/HCPCS: 70496; 70498; 70544; 80053; 82550; 85652; 87637; 93005; 96361; 96374; 96375; 99285; 70551; 71046; 81003; 83605; 83735; 84484; 85025; 85379; 85610; 85730; 86140; 93010; 99284; J0131; J1100; J1885; J3490

== ENCOUNTER 2020-08-05 11:29 | Emergency (ER) | payer MEDICAID, SELFPAY ==
[2020-08-05] VITALS (28 sets, daily range): BP systolic 108–123; BP diastolic 61–72; PULSE 67–102; RESP 11–19; TEMP 36.7–37; O2SAT 97–100
--- NOTE | 2020-08-05 11:51 | W.ED.GENAD ---
Discharge Plan Disposition Patient Disposition: HOME Condition: Improving Discharge Details Clinical Impression: Headache, Paresthesia, Arm pain, Leg pain, Weakness of extremity, Cervical disc herniation Primary Care Provider: Kimberley,Local ED Provider: Elidia Ponce Home Meds and New Rx's Prescriptions: Continued albuterol sulfate 90 mcg/actuation Hfa Aerosol Inhaler 2 puff INHALATION Q6H PRNRF: 0 budesonide-formoterol [Symbicort] 80-4.5 mcg/actuation Hfa Aerosol Inhaler 2 puff INHALATION BID PRN (Reason: asthma) RF: 0 cyclobenzaprine 10 mg Tablet 10 mg PO PRN PRNRF: 0 valacyclovir 1 gram Tablet 1,000 mg PO TID RF: 0 prednisone 20 mg Tablet 60 mg PO DAILY RF: 0 Discharge Instructions Instructions: Paresthesia (ED), Lumbar Radiculopathy (ED), Cervical Radiculopathy (ED), General Headache (ED) Additional Instructions: Drink plenty of fluids and get plenty of rest. Take the steroids and antivirals as directed until finished. Your cervical spine MRI noted disc herniation which may be causing some of your arm pain and weakness but would not be associated with headache, slurred speech or blurred vision. Follow-up with your scheduled appointment with your primary care doctor on Sunday. An appointment has been made for you with our neurologist Dr. Mccloud on August 19 at 2 PM. Return immediately to the emergency department if you develop any worsening or new concerning symptoms. Referrals: Gali Mccloud MD [ [facility] STAFF PHYSICIAN] - Discharge Data Discharge Date/Time-TO BE ENTERED AT DEPARTURE: 08/05/20 16:09 Discharge Physician: Elidia Ponce Medical Decision Making 30-year-old female with a history of asthma, costochondritis, fibromyalgia presents for headache, slurred speech, facial droop and right-sided weakness and electric current type pain in her head and right side since this morning. Patient was seen here yesterday for similar symptom presentation but instead involving the left side. She had an MRI and MRI brain which was read as negative by virtual radiology but which noted mild cerebellar ectopia which could be indicative of a Chiari I malformation per our in-house radiologist. She also did have a negative CTA head and neck. She had a negative rapid Covid test. She had unremarkable labs and urinalysis was given Decadron, Toradol and Tylenol and had complete resolution of her symptoms and was able to ambulate out of the ED. Her vitals are within normal limits. As there is a component of pain to her right-sided weakness, does not appear strokelike. No meningeal signs. History and presentation not consistent with meningitis or encephalitis. Still consider psychosomatic etiology such as conversion disorder. Will place an IV, bolus IV fluids, screening labs, IV Toradol and p.o. Valium and reassess. Labs reviewed. White blood cell count 18 with a left shift. Suspect this is most likely due to the steroids. She is afebrile and appears nontoxic. Remainder labs unremarkable. Case discussed with Dr. Mccloud who agrees that this does not sound like meningitis and does not see indication for lumbar puncture at this time. Patient would rather not have a lumbar puncture. She reviewed the MRI and MRA from yesterday and very soft call for a Chiari 1 malformation but recommends a cervical spine MRI to rule out a syrinx. If MRI cervical spine negative, another possible etiology could include hemiplegic migraine. Cervical spine MRI notes Impression: 1. At C5-6 level there is a focal posterior slightly right of center disc protrusion which indents the thecal sac and contacts the cervical cord. The actual osseous canal dimensions at this level are within normal limits and there is no foraminal stenosis nor facet arthropathy at this level. 2. Other mild disc findings as described above at the C4-5 and C7-T1 levels. 3. Mild cerebellar tonsillar ectopia. No evidence of syrinx nor other abnormality of the cervical spinal cord. I do not suspect these incidental findings on the cervical spine MRI are the cause of all of patient's symptoms as she also has headache, blurry vision and slurred speech. On reassessment, patient symptoms resolving and alternating between both legs. She was able to ambulate around the room. She had no demonstratable slurred speech. Her pain improved. Possible diagnosis includes hemiplegic migraine, viral syndrome, etc. She is advised to continue her steroids and antivirals. She has a follow-up appointment with her primary care doctor on Sunday. An appointment was made for her with Dr. Mccloud for follow up on August 19 at 2pm. Usual and customary return precautions given prior to discharge. Medical Records Medical records reviewed: Yes I reviewed the patient's medical records. Imaging Data Radiologic Study: Radiologist's impression: MR CERVICAL SPINE WO CLINICAL HISTORY: headache, R side weakness, r/o syrinx TECHNIQUE: Multiplanar multisequence MRI of the cervical spine was performed without intravenous contrast. COMPARISON: Recent brain imaging studies reviewed FINDINGS: CERVICOMEDULLARY JUNCTION: There is mild cerebellar tonsillar ectopia with mild crowding of the foramen magnum. CERVICAL SPINAL CORD: There is no abnormal signal in the cervical spinal cord and no evidence of focal cord atrophy nor focal cord swelling. No evidence of syrinx. OSSEOUS:There are no cervical fractures evident. No significant osseous lesions in the cervical vertebrae. However, there is straightening of the cervical spine which is most probably related to muscle spasm. INDIVIDUAL LEVELS: C2-3: No disc herniation nor central canal stenosis. No foraminal stenosis. No facet arthropathy. C3-4: No disc herniation nor central canal stenosis.No facet arthropathy. No foraminal stenosis. C4-5: Normal disc height and signal.Mild asymmetric disc bulging right of center which contacts the thecal sac but not the spinal cord. No large disc herniation at this level. Central canal dimensions remain within normal limits. There is no facet arthropathy. No true foraminal stenosis. C5-6: Preserved disc height. However, there is a focal posterior slightly right of center disc protrusion which extends posteriorly 2 millimeters and is 4 millimeters wide. This contacts the cervical cord at this level. There is no abnormal signal within the cord and central osseous canal dimensions are within normal limits. There is no facet arthropathy and the disc herniation does not extend into the exiting neural foramina. There is no foraminal stenosis. C6-7: Normal disc height and signal. No disc herniation or central canal stenosis. No foraminal stenosis. No significant facet arthropathy C7-T1: Normal disc height and signal. There is mild annular bulging without a dominant disc herniation. No central canal stenosis. No foraminal stenosis. No facet arthropathy. No facet arthropathy.No foraminal stenosis. IMPRESSION: 1. At C5-6 level there is a focal posterior slightly right of center disc protrusion which indents the thecal sac and contacts the cervical cord. The actual osseous canal dimensions at this level are within normal limits and there is no foraminal stenosis nor facet arthropathy at this level. 2. Other mild disc findings as described above at the C4-5 and C7-T1 levels. 3. Mild cerebellar tonsillar ectopia. No evidence of syrinx nor other abnormality of the cervical spinal cord. Lab Data Lab results reviewed: Yes I reviewed the patient's lab results. Labs: Laboratory Tests Range/Units 08/05/20 08/05/20 08/05/20 12:05 12:05 12:05 WBC (4.4-10.8) 10^3/uL 18.81 H D RBC (3.93-5.22) 10^6/uL 4.85 Hgb (11.2-15.7) g/dL 12.7 Hct (36.0-46.0) % 39.7 MCV (80-95) fL 81.9 MCH (27.0-33.0) pg 26.2 L MCHC (32.0-36.0) % 32.0 RDW (11.7-14.6) % 12.1 Plt Count (130-400) 10^3/uL 129 L MPV (8.0-11.0) fL 13.6 H Immature Gran % 0.6 Neutrophils % 94.5 Lymphocytes % 3.3 Monocytes % 1.4 Eosinophils % 0.0 Basophils % 0.2 Nucleated RBC % % 0 Absolute Neutrophils (1.2-6.7) 10^3/uL 17.78 H Absolute Lymphocytes (1.2-3.4) 10^3/uL 0.62 L Absolute Monocytes (0.1-0.8) 10^3/uL 0.26 Absolute Eosinophils (0.0-0.7) 10^3/uL 0.00 Absolute Basophils (0.0-0.2) 10^3/uL 0.04 PT (9.3-11.0) sec 10.0 INR (0.9-1.1) 1.0 APTT (21.0-27.5) sec 23.0 VBG Lactate Sodium (136-145) mmol/L 142 Potassium (3.5-5.1) mmol/L 4.0 Chloride (98-107) mmol/L 106 Carbon Dioxide (21.0-32.0) mmol/L 24.3 Anion Gap (3-11) mmol/L 11.7 H BUN (7-18) mg/dL 7 Creatinine (0.55-1.02) mg/dL 0.7 Estimated GFR/1.73 m2 (mL/min/1.73m2) >= 60.00 Glucose (74-106) mg/dL 117 H Calcium (8.5-10.1) mg/dL 8.9 Magnesium (1.8-2.4) mg/dL 2.1 Total Bilirubin (0.2-1.0) mg/dL 0.3 AST (15-37) U/L 15 ALT (14-59) U/L 38 Alkaline Phosphatase (46-116) U/L 75 Troponin I (<0.06) ng/mL < 0.05 Total Protein (6.4-8.2) g/dL 7.6 Albumin (3.4-5.0) g/dL 3.9 Range/Units 08/05/20 13:02 WBC (4.4-10.8) 10^3/uL RBC (3.93-5.22) 10^6/uL Hgb (11.2-15.7) g/dL Hct (36.0-46.0) % MCV (80-95) fL MCH (27.0-33.0) pg MCHC (32.0-36.0) % RDW (11.7-14.6) % Plt Count (130-400) 10^3/uL MPV (8.0-11.0) fL Immature Gran % Neutrophils % Lymphocytes % Monocytes % Eosinophils % Basophils % Nucleated RBC % % Absolute Neutrophils (1.2-6.7) 10^3/uL Absolute Lymphocytes (1.2-3.4) 10^3/uL Absolute Monocytes (0.1-0.8) 10^3/uL Absolute Eosinophils (0.0-0.7) 10^3/uL Absolute Basophils (0.0-0.2) 10^3/uL PT (9.3-11.0) sec INR (0.9-1.1) APTT (21.0-27.5) sec VBG Lactate Cancelled Sodium (136-145) mmol/L Potassium (3.5-5.1) mmol/L Chloride (98-107) mmol/L Carbon Dioxide (21.0-32.0) mmol/L Anion Gap (3-11) mmol/L BUN (7-18) mg/dL Creatinine (0.55-1.02) mg/dL Estimated GFR/1.73 m2 (mL/min/1.73m2) Glucose (74-106) mg/dL Calcium (8.5-10.1) mg/dL Magnesium (1.8-2.4) mg/dL Total Bilirubin (0.2-1.0) mg/dL AST (15-37) U/L ALT (14-59) U/L Alkaline Phosphatase (46-116) U/L Troponin I (<0.06) ng/mL Total Protein (6.4-8.2) g/dL Albumin (3.4-5.0) g/dL HPI General Date/Time Provider Initiated Documentation: 08/05/20 11:47. Limitations to Documentation: no limitations. Information obtained by: patient. HPI Narrative: Patient is a 30-year-old female with a history of fibromyalgia, asthma who presents for headache, slurred speech, right facial droop, right arm weakness, numbness and electric shocklike pain since this morning. Patient was seen here yesterday for similar presentation with headache and symptoms involving the whole left side of her body for which she had an extensive work-up including negative MRI and MRI brain, CTA head and neck, lab work, chest x-ray and urinalysis. Symptoms completely resolved while here in the ED yesterday and patient was able to talk normally and ambulate and was discharged home. Patient states when she returned home she continued to have left leg pain and then this morning at 9 AM she developed electric shocklike worsening headache pain and inability to move her right arm and right leg with electric current going through them. 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 She denies any fever, sore throat, productive cough, vomiting or diarrhea. She has been able to eat normally. Related Data Home Medications Medication Instructions Recorded Confirmed albuterol sulfate 2 puff INHALATION Q6H PRN 06/07/19 08/05/20 budesonide-formoterol [Symbicort] 2 puff INHALATION BID PRN 06/07/19 08/05/20 cyclobenzaprine 10 mg PO PRN PRN 08/04/20 08/05/20 prednisone 60 mg PO DAILY 08/05/20 08/05/20 valacyclovir 1,000 mg PO TID 08/05/20 08/05/20 Allergies Allergy/AdvReac Type Severity Reaction Status Date / Time latex Allergy Severe Itching Unverified 08/05/20 11:50 Sulfa (Sulfonamide Allergy Severe Skin Rash Unverified 08/05/20 11:50 Antibiotics) General Stated Complaint: CVA/TIA NICO: 2 Review of Systems All systems reviewed & are unremarkable except as noted in HPI and below Constitutional Constitutional: Reports as per HPI, Denies chills, Denies fever(s) and Reports headache(s) Eyes Eyes: Reports blurry vision ENT Ears, Nose, Mouth, and Throat: Reports dizziness, Reports headache(s), Denies sore throat and Denies throat swelling Cardiovascular Cardiovascular: Denies chest pain and Denies dyspnea Respiratory Respiratory: Denies cough and Denies dyspnea Gastrointestinal Gastrointestinal: Denies abdominal pain, Denies diarrhea and Denies vomiting Genitourinary Genitourinary: Denies hematuria and Denies dysuria Musculoskeletal Musculoskeletal: Reports back pain and Denies numbness Integumentary/Breasts Skin/Breast: Denies lesions and Denies rash Neurologic Neurologic: Reports dizziness, Reports headache(s), Reports localized weakness, Denies numbness and Reports other (electric shock/electric current type pain in head and R arm/leg) Allergic/Immunologic Allergic/Immunologic: Denies throat swelling [facility] Medical History (Updated 08/05/20 @ 15:57 by Elidia Ponce DO) Asthma Costochondritis Fibromyalgia Surgical History History of section History of partial hysterectomy Hx of cholecystectomy Social History Smoking/Tobacco Use Status: Never Smoking risk assessment performed?: Yes Alcohol Intake: current Alcohol Intake frequency: a few times a month Alcohol type: beer and wine Drug use: Never Substance use type: does not use Do you feel safe at home: Yes Do you feel safe in your relationship?: Yes Exam Const General: cooperative and healthy appearing Orientation: alert and awake HENMT Head: normal to inspection Ears: hearing grossly normal bilaterally, external ears normal and TM's normal bilaterally General nose exam: external nose normal Face and sinus: normal facial exam Mouth: oral mucosae normal Teeth and gingiva: dentition normal Throat: posterior oropharynx normal Eyes General: appearance normal, both eyes and all related structures Eyelids: eyelids normal Pupils: PERRL EOM: EOM intact bilaterally Neck Neck: normal visual inspection Lymphatic: no lymphadenopathy noted Chest Chest: normal inspection of the chest Resp Effort & Inspection: normal respiratory effort and able to speak in complete sentences Auscultation: clear to auscultation bilaterally Cardio Rate: regular rate Rhythm: regular rhythm GI Inspection: normal to inspection Palpation: soft, not firm, no guarding, no hepatosplenomegaly, no masses and nontender Auscultation: normal bowel sounds Back/Spine/Pelvis Back: no CVA tenderness Skin General skin exam: no rashes or lesions noted Neuro General: patient alert and patient awake Cognition: normal cognition Speech: abnormal speech stuttering Sensory Exam: other (Slight altered sensation to light touch of RUE/RLE compared to LUE/LLE) Other: She has some movement in her right upper extremity and right lower extremity with commands. Extrem General: normal to inspection Other: Some pain in the right upper extremity with range of motion. Psych Appearance: grossly normal Mental Status: mental status grossly normal Speech and Movement: speech and movement normal Affect: normal affect Thought Process: normal Course Vital Signs Vital signs: Vital Signs Temperature 98.4 F 08/05/20 11:30 Pulse 86 08/05/20 11:30 Respiratory Rate 15 08/05/20 11:30 Blood Pressure 123/68 08/05/20 11:30 Pulse Oximetry 97 08/05/20 11:30 Temperature 98.4 F 08/05/20 11:30 Temperature Source Skin 08/05/20 11:30 Pulse 86 08/05/20 11:30 Respiratory Rate 15 08/05/20 11:30 Respiratory Effort 08/05/20 11:42 Blood Pressure 123/68 08/05/20 11:30 Pulse Oximetry 97 08/05/20 11:30 Oxygen Delivery Method Room Air 08/05/20 11:30 Oxygen Flow Rate 0 08/05/20 11:30 Pain Level 7 08/05/20 11:30
[2020-08-05] MEDS: Normal Saline Flush 10 ML SYR IVP (12:05)
[2020-08-05 12:17] LABS: Abs Immature Grans 0.12 10^3/uL (0.0-0.06); Absolute Monocyte Count 0.26 10^3/uL (0.1-0.8); Basophils % 0.2; HCT 39.7 % (36.0-46.0); HGB 12.7 g/dL (11.2-15.7); Immature Grans % 0.6; Lymphocytes % 3.3; MCH 26.2 pg (27.0-33.0); MCV 81.9 fL (80-95); MPV 13.6 fL (8.0-11.0); Monocytes % 1.4; Neutrophils % 94.5; Nucleated RBC 0 %; RBC 4.85 10^6/uL (3.93-5.22); RDW 12.1 % (11.7-14.6); RDW-SD 36.2 fL; WBC 18.81 10^3/uL (4.4-10.8)
[2020-08-05 12:32] LABS: Absolute Basophil Count 0.04 10^3/uL (0.0-0.2); Absolute Lymphocyte Count 0.62 10^3/uL (1.2-3.4); Absolute Neutrophil Count 17.78 10^3/uL (1.2-6.7); Platelet Count 129 10^3/uL (130-400)
[2020-08-05 12:37] LABS: ALT 38 U/L (14-59); AST 15 U/L (15-37); Albumin 3.9 g/dL (3.4-5.0); Alkaline Phosphatase 75 U/L (46-116); Anion Gap 11.7 mmol/L (3-11); BUN 7 mg/dL (7-18); Bilirubin, Total 0.3 mg/dL (0.2-1.0); CO2 24.3 mmol/L (21.0-32.0); CREATININE 0.7 mg/dL (0.55-1.02); Calcium 8.9 mg/dL (8.5-10.1); Chloride 106 mmol/L (98-107); Glucose 117 mg/dL (74-106); Magnesium 2.1 mg/dL (1.8-2.4); Sodium 142 mmol/L (136-145); Total Protein 7.6 g/dL (6.4-8.2)
[2020-08-05 12:42] LABS: Troponin I < 0.05 ng/mL (<0.06)
--- NOTE | 2020-08-05 13:00 | DI.MRI_ITS ---
EXAM: MR CERVICAL SPINE WO CLINICAL HISTORY: headache, R side weakness, r/o syrinx TECHNIQUE: Multiplanar multisequence MRI of the cervical spine was performed without intravenous con trast. COMPARISON: Recent brain imaging studies reviewed FINDINGS: CERVICOMEDULLARY JUNCTION: There is mild cerebellar tonsillar ectopia with mild crowding of the thomas en magnum. CERVICAL SPINAL CORD: There is no abnormal signal in the cervical spinal cord and no evidence of foca l cord atrophy nor focal cord swelling. No evidence of syrinx. OSSEOUS:There are no cervical fractures evident. No significant osseous lesions in the cervical vert ebrae. However, there is straightening of the cervical spine which is most probably related to muscl e spasm. INDIVIDUAL LEVELS: C2-3: No disc herniation nor central canal stenosis. No foraminal stenosis. No facet arthropathy. C3-4: No disc herniation nor central canal stenosis.No facet arthropathy. No foraminal stenosis. C4-5: Normal disc height and signal.Mild asymmetric disc bulging right of center which contacts the t hecal sac but not the spinal cord. No large disc herniation at this level. Central canal dimensions remain within normal limits. There is no facet arthropathy. No true foraminal stenosis. C5-6: Preserved disc height. However, there is a focal posterior slightly right of center disc protr usion which extends posteriorly 2 millimeters and is 4 millimeters wide. This contacts the cervical cord at this level. There is no abnormal signal within the cord and central osseous canal dimensions are within normal limits. There is no facet arthropathy and the disc herniation does not extend int o the exiting neural foramina. There is no foraminal stenosis. C6-7: Normal disc height and signal. No disc herniation or central canal stenosis. No foraminal wilfrid nosis. No significant facet arthropathy C7-T1: Normal disc height and signal. There is mild annular bulging without a dominant disc herniati on. No central canal stenosis. No foraminal stenosis. No facet arthropathy. No facet arthropathy. No foraminal stenosis. IMPRESSION: 1. At C5-6 level there is a focal posterior slightly right of center disc protrusion which indents th e thecal sac and contacts the cervical cord. The actual osseous canal dimensions at this level are w ithin normal limits and there is no foraminal stenosis nor facet arthropathy at this level. 2. Other mild disc findings as described above at the C4-5 and C7-T1 levels. 3. Mild cerebellar tonsillar ectopia. No evidence of syrinx nor other abnormality of the cervical sp inal cord. DATA REPOSITORY:
[2020-08-05] MEDS: Normal Saline 1,000 ML 1000 ML IV (13:20)
[2020-08-05] MEDS: diazePAM 5 MG TAB PO (13:22)
[2020-08-05] MEDS: Ketorolac 30 MG/ML VIAL IVP (13:25)
[2020-08-06 11:00] LABS: Lyme Ab w Rflx to Lyme Confirm Negative (Negative)
[2020-08-09 00:49] LABS: Anaplasma phagocytophilum Negative (Negative); B. miyamotoi PCR Negative (Negative); Babesia divergens/MO-1 Negative (Negative); Babesia duncani Negative (Negative); Babesia microti Negative (Negative); Ehrlichia chaffeensis Negative (Negative); Ehrlichia ewingii/canis Negative (Negative); Ehrlichia muris eauclairensis Negative (Negative)
== END 2020-08-05 16:09 | disposition home or self-care (01) ==
PROVIDERS: Emergency Provider Physician Assistant
DX: M50.222 Other cervical disc displacement at C5-C6 level (principal); R20.2 Paresthesia of skin; R53.1 Weakness; R51.9 Headache, unspecified
CPT/HCPCS: 80053; 81025; 87798; 96361; 96374; 99284; 72141; 83605; 83735; 84484; 85025; 85610; 85730; 86618; J1885

== ENCOUNTER 2020-12-02 13:53 | Outpatient (REF) | payer MEDICAID, SELFPAY ==
[2020-12-02 16:38] LABS: C Diff PCR Negative (Negative)
== END 2020-12-02 13:54 | disposition home or self-care (01) ==
LOC: NCHCN 13:53
PROVIDERS: Visit Provider Family Medicine
DX: R19.7 Diarrhea, unspecified (principal)
CPT/HCPCS: 87329; 87493; 83630

== ENCOUNTER 2020-12-24 14:36 | Outpatient (REF) | payer MEDICAID, SELFPAY ==
[2020-12-26 11:44] LABS: COVID-19 RT-PCR UVMMC Result Negative (Negative)
== END 2020-12-24 14:37 | disposition home or self-care (01) ==
LOC: NCHCN 14:36
PROVIDERS: Visit Provider Physician Assistant Medical
DX: R05 Cough (principal); Z20.822 Contact with and (suspected) exposure to COVID-19
CPT/HCPCS: U0003

== ENCOUNTER 2021-07-12 16:58 | Outpatient (REF) | payer MEDICAID, SELFPAY | END 2021-07-12 16:59 | disposition home or self-care (01) | LOC: LBN 16:58 | PROVIDERS: PCP Nurse Practitioner Family; Visit Provider Nurse Practitioner Family | DX: J02.9 Acute pharyngitis, unspecified (principal) | CPT/HCPCS: 87070 ==

== ENCOUNTER 2021-09-09 21:47 | Outpatient (CLI) | payer MEDICAID, SELFPAY ==
--- NOTE | 2021-09-09 | DI.CT_ITS ---
Exam(s) CT PELVIC W EXAM: CT PELVIC W CLINICAL HISTORY: OPEN PILONIDAL SINUS, L05.91, ? UNDERLYING ABSCESS TECHNIQUE: Imaging Protocol: Axial computed tomography images with coronal and sagittal reformatted images were created and reviewed CONTRAST MATERIAL: Intravenous: Omnipaque 350 Contrast volume:100 mL Oral: No COMPARISON: CT CT BRAIN NECK CTA from 08/04/2020 FINDINGS: PELVIS: Abdominal Aorta: Abdominal portion non-dilated. Bowel: No obstruction or bowel wall thickening. No evidence of appendicitis. Peritoneal Cavity: No ascites, collection or mesenteric inflammatory response. Soft Tissues: No edema is seen in the soft tissues. No focal fluid collection is seen in the subcuta neous soft tissues to suggest an abscess. Bladder: The bladder is incompletely distended but grossly unremarkable. Reproductive Organs: Unremarkable as visualized. Lymph Nodes: Within normal limits. Bones: Within normal limits. IMPRESSION: 1. No evidence of a subcutaneous abscess. 2. Results of this exam have been verbally communicated with provider. RADIATION DOSE DELIVERED: 516.4mGy.cm Total DLP DATA REPOSITORY: All CT scans at this facility are submitted to the National Radiology Data Registry (NRDR) Dose Index Registry (DIR) with the [employer] ([employer]). RADIATION OPTIMIZATION: All CT scans at this facility use at least one of these dose optimization te chniques: automated exposure control; mA and/or kV adjustment per patient size (includes targeted exa ms where dose is matched to clinical indication); or iterative reconstruction.
[2021-09-09] MEDS: Omnipaque 350 MG/ML 100 ML BTL IJ (12:40)
== END 2021-09-09 22:07 ==
PROVIDERS: PCP Nurse Practitioner Family; Visit Provider Physician Assistant Medical
DX: L05.91 Pilonidal cyst without abscess (principal)
CPT/HCPCS: 72193; J3490

== ENCOUNTER 2022-06-06 16:43 | Outpatient (REF) | payer MEDICAID, SELFPAY ==
[2022-06-06 20:45] LABS: CREATININE 0.6 mg/dL (0.55-1.02); Estimated GFR 120.72 (mL/min/1.73m2)
== END 2022-06-06 16:44 | disposition home or self-care (01) ==
LOC: NCHCN 16:43
PROVIDERS: PCP Family Medicine; Visit Provider Nurse Practitioner Family
DX: U07.1 COVID-19 (principal)
CPT/HCPCS: 82565

== ENCOUNTER 2022-11-06 15:11 | Outpatient (REF) | payer MEDICAID, SELFPAY ==
[2022-11-07 14:16] LABS: Chlamydia Result Negative (Negative); GC Result Negative (Negative)
== END 2022-11-06 15:12 | disposition home or self-care (01) ==
LOC: LBN 15:11
PROVIDERS: PCP Family Medicine; Visit Provider Nurse Practitioner Family
DX: N76.0 Acute vaginitis (principal); Z11.3 Encounter for screening for infections with a predominantly sexual mode of transmission; R39.15 Urgency of urination
CPT/HCPCS: 87491; 87591; 87086; 87480; 87510; 87660

== ENCOUNTER 2022-12-02 13:10 | Outpatient (REF) | payer MEDICAID, SELFPAY | END 2022-12-02 13:11 | disposition home or self-care (01) | LOC: LBN 13:10 | PROVIDERS: PCP Family Medicine; Visit Provider Nurse Practitioner Family | DX: N39.0 Urinary tract infection, site not specified (principal) | CPT/HCPCS: 87077; 87086; 87186 ==

== ENCOUNTER 2022-12-26 14:05 | Emergency (ER) | payer MEDICAID, SELFPAY ==
[2022-12-26 14:09] VITALS: BP 119/73; PULSE 67; RESP 15; TEMP 36.5; O2SAT 100
--- NOTE | 2022-12-26 15:42 | DI.RAD_ITS ---
Exam(s) XR FOREARM LT EXAM: XR FOREARM LT CLINICAL HISTORY: fall, midshaft pain. TECHNIQUE: 2D digital imaging was performed. COMPARISON: No exams were available for comparison FINDINGS: 3 views There is dorsal soft tissue swelling at the mid aspect the forearm. No evidence of fracture of the forearm bones nor bones in the region of the elbow. No swelling of th e olecranon bursa. No elbow joint effusion. Radial head and neck appear unremarkable. Bone density normal. No osseous lesions. IMPRESSION: Dorsal soft tissue swelling over the mid forearm. No osseous findings. No radiopaque foreign body. DATA REPOSITORY: RADIATION DOSE DELIVERED:
--- NOTE | 2022-12-26 16:22 | ED.GENADUL_ITS ---
Discharge Plan Disposition Patient Disposition: Home Discharge Details Clinical Impression: Contusion of forearm, left Primary Care Provider: Kamala Bliss ED Provider: Julia Guerrero Home Meds and New Rx's Prescriptions: Continued Cholestyramine Light 4 gram powder 1 pwd PO DAILY Qty: 239.4 0RF Rx Instructions: administer w/meal; avoid other meds within 1hr before or 4-6hr after dose. start w/ 1/2 dose daily. doxepin 10 mg capsule 10 mg PO QHS Qty: 30 5RF fluticasone propionate [Flonase Allergy Relief] 50 mcg/actuation spr ay,suspension 1 spray intranasal DAILY Rx Instructions: administer into each nostril ibuprofen 600 mg tablet 600 mg PO ONCE PRN venlafaxine 75 mg capsule,extended release 24hr 75 mg PO DAILY Qty: 90 3RF (DME) Pro Comfort Spacer-Adult Mask Spacer See Rx Instructions .Route Rx Instructions: As directed cyclobenzaprine 10 mg tablet 10 mg PO HS PRN (Reason: muscle spasm) Qty: 30 0RF albuterol sulfate 90 mcg/actuation Hfa Aerosol Inhaler 2 puff INHALATION Q6H PRN budesonide-formoterol [Symbicort] 80-4.5 mcg/actuation Hfa Aerosol Inhaler 2 puff INHALATION BID PRN (Reason: asthma) Discharge Instructions Instructions: Contusion in Adults (ED) Additional Instructions: Ice 20 minutes on and 20 minutes off for the next 24 to 72 hours. You can then change to heat if you want. Expect some bruising to blossom or increased. Tylenol 650 mg every 6 hours as needed for pain and or ibuprofen 600 mg every 6 hours. May get sorer before it gets better. No fracture was seen. Discharge Data Discharge Date/Time-TO BE ENTERED AT DEPARTURE: 12/26/22 16:30 Medical Decision Making Patient was updated on her negative x-ray results and advised to use Tylenol, ibuprofen, and ice as needed Medical Records Medical records reviewed: Yes I reviewed the patient's medical records. Imaging Data Radiologic Study: Attestation: I personally reviewed and interpreted this imaging study as follows: Imaging: X-Ray My impression: Radius ulna films are negative for acute fracture. Radiologist's impression: xam(s) XR FOREARM LT EXAM:? XR FOREARM LT CLINICAL HISTORY: ? fall, midshaft pain. ? TECHNIQUE:? 2D digital imaging was performed. COMPARISON:? No exams were available for comparison FINDINGS: 3 views There is dorsal soft tissue swelling at the mid aspect the forearm. No evidence of fracture of the forearm bones nor bones in the region of the el bow.? No swelling of the olecranon bursa.? No elbow joint effusion.? Radial head and neck appear unremarkable.? Bone density normal.? No osseous lesions. IMPRESSION: Dorsal soft tissue swelling over the mid forearm.? No osseous findings.? No radiopaque foreign body. Lab Data Labs: Patient Name: Paige Caputo Unit #: [id number] Loc: ER ? Ordering Provider:? Julia Guerrero M.D. Status: REG ER ? Primary Care Provider: Kamala Bliss Date of Exam: 12/26/22 Sex: F ? Admission Date: 12/26/22? : 1990 ? Age: 32 ? Exam(s) XR FOREARM LT EXAM:? XR FOREARM LT CLINICAL HISTORY: ? fall, midshaft pain. ? TECHNIQUE:? 2D digital imaging was performed. COMPARISON:? No exams were available for comparison FINDINGS: 3 views There is dorsal soft tissue swelling at the mid aspect the forearm. No evidence of fracture of the forearm bones nor bones in the region of the elbow.? No swelling of the olecranon bursa.? No elbow joint effusion.? Radial head and neck appear unremarkable.? Bone density normal.? No osseous lesions. IMPRESSION: Dorsal soft tissue swelling over the mid forearm.? No osseous findings.? No radiopaque foreign body. HPI General Date/Time Provider Initiated Documentation: 12/26/22 15:36 . HPI Narrative: This 32-year-old female patient presents with a chief complaint of left forearm contusion. Patient states she was in her cousin last camper and first tripped over a strap on the ground and then tripped on the linoleum. She fell into the door frame of the camper and hit her left forearm. There is a bruise there and it feels to her like she has broken it midshaft. Patient denies any other injury. She did not hit her head or lose consciousness. She denies any other injury except for a minor right knee abrasion. Related Data Home Medications Medication Instructions Recorded Confirmed albuterol sulfate 90 mcg/actuation 2 puff inhalation Q6H PRN 06/07/19 12/26/22 aerosol inhaler budesonide-formoterol HFA 80 2 puff inhalation BID PRN asthma 06/07/19 12/26/22 mcg-4.5 mcg/actuation aerosol inhaler (Symbicort) fluticasone propionate 50 1 spray intranasal DAILY 08/19/20 12/26/22 mcg/actuation nasal spray,suspension (Flonase Allergy Relief) ibuprofen 600 mg tablet 600 mg PO ONCE PRN 11/03/20 12/26/22 inhalat.spacing dev,large mask 09/14/21 12/26/22 (Pro Comfort Spacer-Adult Mask) cholestyramine-aspartame 4 gram 1 pwd PO DAILY #239.4 grams 10/20/21 12/26/22 oral powder (Cholestyramine Light) venlafaxine 75 mg capsule,extended 75 mg PO DAILY #90 caps 01/16/22 12/26/22 release 24 hr cyclobenzaprine 10 mg tablet 10 mg PO HS PRN muscle spasm #30 12/06/22 12/26/22 tabs doxepin 10 mg capsule 10 mg PO QHS #30 caps 12/12/22 12/26/22 Previous Rx's Medication Instructions Recorded cholestyramine-aspartame 4 gram 1 pwd PO DAILY #239.4 grams 10/20/21 oral powder (Cholestyramine Light) venlafaxine 75 mg capsule,extended 75 mg PO DAILY #90 caps 01/16/22 release 24 hr cyclobenzaprine 10 mg tablet 10 mg PO HS PRN muscle spasm #30 12/06/22 tabs doxepin 10 mg capsule 10 mg PO QHS #30 caps 12/12/22 Allergies Allergy/AdvReac Type Severity Reaction Status Date / Time latex Allergy Severe Itching Verified 12/26/22 14:15 Sulfa (Sulfonamide Allergy Severe Skin Rash Verified 12/26/22 14:15 Antibiotics) General Stated Complaint: Orthopedic NICO: 4 Review of Systems Musculoskeletal Musculoskeletal: Denies numbness and Reports other (Pain midshaft left forearm) Integumentary/Breasts Skin/Breast: Reports other (has forearm abrasion) Neurologic Neurologic: Denies localized weakness and Denies numbness PFSH All Active Problems Contusion of forearm, left (Acute) Obesity (BMI 30.0-34.9) (Acute) Postcholecystectomy diarrhea (Acute) Irritable bowel syndrome with constipation and diarrhea (Acute) Folliculitis (Acute) Pharyngitis (Acute) Migraine headache without aura (Acute) Chronic headache (Acute) Functional neurological symptom disorder with mixed symptoms (Acute) Medical History Anxiety Anxiety and depression Asthma Chronic low back pain Conversion disorder with mixed symptom presentation Hemiplegia affecting R dominate side Paresthesia Fibromyalgia affecting multiple sites Costochondritis Fibromyalgia Surgical History History of section x3 History of partial hysterectomy Hx of cholecystectomy Family History Maternal Aunt Headache Maternal Cousin Headache Maternal Grandmother Headache Mother Headache Social History Smoking/Tobacco Use Status: Never Smoking risk assessment performed?: Yes Alcohol Intake: current Alcohol Intake frequency: a few times a month Alcohol type: beer and wine Drug use: Never Substance use type: does not use Household members: significant other and children Housing: house Number of Children: 3 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[employer], 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 Exam Const General: healthy appearing, no acute distress, well developed and well groomed Orientation: alert and oriented x3 HENMT Head: normocephalic and atraumatic Face and sinus: normal facial exam Mouth: oral mucosae normal Eyes Conjunctivae: conjunctivae normal Neck Neck: full ROM and other (spine NTP) Chest Chest: normal palpation of entire chest wall Resp Effort & Inspection: normal respiratory effort Skin General skin exam: other (Abrasion left forearm) Extrem Other: LUE is atraumatic and nontender to palpation with good range of motion except for midshaft forearm which is tender to palpation and has an abrasion. There is some swelling and ecchymosis there as well. Patient is neurovascularly intact distal to this. Course Vital Signs Vital signs: Vital Signs Temperature 36.5 C 12/26/22 14:09 Pulse 67 12/26/22 14:09 Respiratory Rate 15 12/26/22 14:09 Blood Pressure 119/73 12/26/22 14:09 Pulse Oximetry 100 12/26/22 14:09 Temperature 36.5 C 12/26/22 14:09 Temperature Source Tympanic 12/26/22 14:09 Pulse 67 12/26/22 14:09 Respiratory Rate 15 12/26/22 14:09 Respiratory Effort Normal 12/26/22 14:13 Blood Pressure 119/73 12/26/22 14:09 Blood Pressure Position Sitting 12/26/22 14:09 Pulse Oximetry 100 12/26/22 14:09 Oxygen Delivery Method Room Air 12/26/22 14:09 Oxygen Flow Rate 0 12/26/22 14:09 Pain Level 5 12/26/22 14:09 PAWSS Have you Been Recently Intoxicated or Drunk Within the Last 30 days?: No Have you Ever Experienced Previous Episodes of Alcohol Withdrawal?: No Have you ever Experienced Withdrawal Seizures?: No Have you ever Experienced Delirium Tremens(DT)s?: No Have you ever undergone Alcohol Rehabilitation Treatment (i.e, inpt ot outpatient treatment programs)?: No Have you ever Experienced Blackouts?: No Have you ever Combined Alcohol with other Downers within the last 90 days?: No Have you ever Combined Alcohol with any other Substance of Abuse during the last 90 days?: No Result: 0
== END 2022-12-26 16:30 | disposition home or self-care (01) ==
PROVIDERS: Emergency Provider Emergency Medicine; PCP Family Medicine
DX: S50.12XA Contusion of left forearm, initial encounter (principal); W19.XXXA Unspecified fall, initial encounter
CPT/HCPCS: 99283; 73090

== ENCOUNTER 2023-01-08 15:36 | Outpatient (REF) | payer MEDICAID, SELFPAY ==
[2023-01-10 12:57] LABS: Chlamydia Result Negative (Negative); GC Result Negative (Negative)
== END 2023-01-08 15:37 | disposition home or self-care (01) ==
LOC: LBN 15:36
PROVIDERS: PCP Family Medicine; Visit Provider Nurse Practitioner Family
DX: Z11.3 Encounter for screening for infections with a predominantly sexual mode of transmission (principal)
CPT/HCPCS: 87491; 87591

== ENCOUNTER 2023-02-27 22:01 | Outpatient (REF) | payer MEDICAID, SELFPAY ==
[2023-03-01 10:09] LABS: HIV-1/2 Ag & Ab Screen Negative (Negative)
[2023-03-01 10:30] LABS: Hepatitis C Ab w Rflx HCV PCR Negative (Negative)
[2023-03-01 11:33] LABS: Syphilis Serology (RPR) Negative (Negative)
[2023-03-01 13:29] LABS: Chlamydia Result Negative (Negative); GC Result Negative (Negative)
== END 2023-02-27 22:02 | disposition home or self-care (01) ==
LOC: LBN 22:01
PROVIDERS: PCP Family Medicine; Visit Provider Nurse Practitioner Family
DX: Z11.3 Encounter for screening for infections with a predominantly sexual mode of transmission (principal); Z11.4 Encounter for screening for human immunodeficiency virus [HIV]; Z11.59 Encounter for screening for other viral diseases; N89.8 Other specified noninflammatory disorders of vagina
CPT/HCPCS: 86803; 87389; 87491; 87591; 86592; 87480; 87510; 87660

== ENCOUNTER 2023-08-09 21:22 | Outpatient (REF) | payer MEDICAID, SELFPAY ==
[2023-08-09 21:56] LABS: Bacteria Few HPF (Negative); C & S Indicated? C&S Done As Ordered; Casts Negative LPF (Negative); Crystals Negative HPF (Negative); Epithelial Cells Few HPF (Negative); Mucus Negative (Negative); RBC 0-2 HPF (0-2); WBC >50 HPF (0-5)
[2023-08-11 15:47] LABS: Chlamydia Result Negative (Negative); GC Result Negative (Negative)
== END 2023-08-09 21:23 | disposition home or self-care (01) ==
LOC: LBN 21:22
PROVIDERS: PCP Family Medicine; Visit Provider Physician Assistant Medical
DX: N89.8 Other specified noninflammatory disorders of vagina (principal); R30.0 Dysuria; R82.998 Other abnormal findings in urine; Z11.3 Encounter for screening for infections with a predominantly sexual mode of transmission
CPT/HCPCS: 87077; 87491; 87591; 81015; 87086; 87186; 87480; 87510; 87660

== ENCOUNTER 2023-09-03 16:30 | Outpatient (REF) | payer MEDICAID, SELFPAY | END 2023-09-03 16:31 | disposition home or self-care (01) | LOC: LBN 16:30 | PROVIDERS: PCP Family Medicine; Visit Provider Nurse Practitioner Family | DX: N76.0 Acute vaginitis (principal) | CPT/HCPCS: 87480; 87510; 87660 ==

== ENCOUNTER 2023-10-09 14:14 | Outpatient (REF) | payer MEDICAID, SELFPAY ==
[2023-10-10 14:02] LABS: Chlamydia Result Negative (Negative); GC Result Negative (Negative)
== END 2023-10-09 14:15 | disposition home or self-care (01) ==
LOC: NCHCN 14:14
PROVIDERS: PCP Family Medicine; Visit Provider Physician Assistant
DX: N76.0 Acute vaginitis (principal)
CPT/HCPCS: 87491; 87591; 87480; 87510; 87660

== ENCOUNTER 2023-10-26 11:34 | Outpatient (REF) | payer MEDICAID, SELFPAY | END 2023-10-26 11:35 | disposition home or self-care (01) | LOC: NCHCN 11:34 | PROVIDERS: PCP Family Medicine; Visit Provider Family Medicine | DX: N89.8 Other specified noninflammatory disorders of vagina (principal) | CPT/HCPCS: 87480; 87510; 87660 ==

== ENCOUNTER → 2023-11-07 01:46 | Outpatient (CLI) | payer MEDICAID, SELFPAY ==
--- NOTE | 2023-11-07 | DI.MAMMO_ITS ---
Exam(s) US BREAST LT COMPLETE US BREAST RT COMPLETE MG MAMMO DIAGNOSTIC BI EXAM: MG MAMMO DIAGNOSTIC BI AND BILATERAL COMPLETE BREAST ULTRASOUND CLINICAL HISTORY: N64.4 Mastodynia. TECHNIQUE: BILATERAL CC AND MLO mammographic images were obtained with 3D tomosynthesis technique an d utilizing computer aided detection (CAD). BILATERAL COMPLETE BREAST ULTRASOUND was performed including all 4 quadrants of both breasts as well as both axillary regions. COMPARISON: None. This is 1st time breast imaging on this 33-year-old patient who has bilateral rick ast pain. She denies feeling a lump. Denies nipple discharge. FINDINGS: DIAGNOSTIC BILATERAL MAMMOGRAM: The fibroglandular pattern is moderately dense. There are no obvious spiculated masses nor malignant-appearing microcalcification groups in either br east. There is no significant architectural distortion or skin thickening-retraction. BILATERAL COMPLETE BREAST ULTRASOUND: There is no evidence of solid or significant cystic lesions in all 4 quadrants of both breasts. Scanning of both axillary regions is negative for adenopathy. IMPRESSION: 1. No mammographic evidence of malignancy. 2. Negative complete bilateral breast ultrasound The patient was informed of the findings by myself prior to leaving the department today. BI-RADS Category 1 - Negative Breast Density - Category C - Heterogeneously dense Breast density Category C or D implies that the patient has dense breast tissue. Dense breast tissue can make it harder to find cancer on a mammogram. Dense breast tissue is also associated with an incr eased risk of breast cancer. This information about the result of the mammogram report was provided to the patient to raise their awareness. Use this report when you speak with the patient about their risks for breast cancer, which includes their family history. At that time, you may recommend additional screening tests (Ultrasoun d or MRI) as these tests may add significant information. A negative radiographic report should not delay biopsy if a dominant or clinically suspicious mass is present. Up to ten percent of cancers are not identified on mammography. A negative report may reinforce clinical impression. Adenosis and dense breasts may obscure an underlying neoplasm. False positive reports average 6 to 10%. Patient will receive a letter notifying them of these results.
== END ==
PROVIDERS: PCP Family Medicine; Visit Provider Family Medicine
DX: Z12.31 Encounter for screening mammogram for malignant neoplasm of breast (principal); N64.4 Mastodynia
CPT/HCPCS: 76642; 77062; 77066; G0279

== ENCOUNTER 2024-01-09 10:48 | Outpatient (REF) | payer MEDICAID, SELFPAY ==
--- OUTSIDE RECORDS SUMMARY | 2024-01-09 10:58 | XMS_ITS | Encounter Summary ---
Author Organization [facility] Address [address] [place] [address] Care Team Providers Care Tractor Trailer Operator Name Role Phone Segundo Alfaro MD Primary Care Provider [phone] Reason for Visit * Reason Comments Fecal Impaction Encounter Details Date Type Department Care Team (Late st Contact Info) Description 06/17/2012 23:18 EST - 06/18/2012 0:55 EST Hospital Encounter [facility] [address], [place] [id number] Vanessa Acosta MD [address] [facility] [place] [address] Discharge Disposition: Home or Self Care Social History Tobacco Use Types Packs/Day Years Used Date Smoking Tobacco: Never Smokeless Tobacco: Never Alcohol Use Standard Drinks/Week Comments No 0 (1 standard drink = 0.6 oz pur e alcohol) Comments Yes Sex and Gender Information Value Date Recorded Sex Assigned at Not on file Gender Identity Female 08/09/2020 12:13 EST Sexual Orientation Not on file documented as of this encounter Last Filed Vital Signs Vital Sign Reading Time Taken Comments Blood Pressure 110/61 06/17/2012 2340 EST Pulse 87 06/17/2012 2340 EST Temperature 36.6 ??C (97.9 ??F) 06/17/2012 2340 EST Respiratory Rate 18 06/17/2012 2340 EST Oxygen Saturation - - Inhaled Oxygen Concentration - - Weight - - Height - - Body Mass Index - - documented in this encounter Discharge Instructions * Discharge Instructions* Shelly Santoro MD - 06/18/2012 0:33 EST L&D Discharge Instructions Call your provider if: ?? Your water breaks ?? There's any bright red bleeding ?? You are not feeling the baby move ?? Severe abdominal pain or contractions Medications: ?? Continue any present medication ?? Start taking the stool softener (colace) and the laxative (miralax) daily, use the bisacodyl suppository on an as needed basis. Talk with your doctor at your next visit about ongoing issues. Activity: ?? Drink plenty of fluids and eat well ?? As tolerated, lie on your side while resting/napping Call Provider's Office For: ?? Keep your next scheduled appointment SHELLY SANTORO MD 06/18/2012 0:32 documented in this encounter Medications at Time of Discharge Medication Sig Dispensed Refills Start Date End Date docusate sodium (COLACE) 100 mg capsule Take 1 Cap by mouth 2 times daily. 60 Cap 1 06/18/2012 pediatric multivitamin (ERICKA CHEW VIT) chewable tablet Take 1 Tab by mouth daily. PEG 3350-Electrolytes (MIRALAX) 17 gram packet Take 17 g by mouth daily. 30 Each 3 06/18/2012 documented as of this encounter Ordered Prescriptions Prescription Sig Dispensed Refills Start Date End Da te PEG 3350-Electrolytes (MIRALAX) 17 gram packet Take 17 g by mouth daily. 30 Each 3 06/18/2012 docusate sodium (COLACE) 100 mg capsule Take 1 Cap by mouth 2 times daily. 60 Cap 1 06/18/2012 documented in this encounter Discharge Disposition Disposition Code Departure Means Destination Home or Self Care documented in this encounter Progress Notes * Madeline Marquez RN - 06/18/2012 0101 EST 1:01 pt arrived @ 2324 with c/o constipation and cramping unrelieved by using stool softeners. Stated last BM was 10 days ago. Iron supplement started a week before last BM. Pt states she typically has a bm 2 x per week. Pt given meds to go home with to start a bowel regimen. Given Doculax Suppository to administer to self at home d/t [address] ride. Also given MOM and prune juice to take once at home. Colace and Merilax also given. Instructions given and pt repeated them back before d/c to home. * Shelly Santoro MD - 06/18/2012 0000 EST L&D Triage Note CC: Constipation S: Ms. Caputo is a 22 y.o. at 19w6d by LMP c/w tri U/S who presents to L&D with complaints of constipation and lack of bowel movement for 8 days. The patient states that she normally has about 2 bowel movements per week, but has not had a bowel movement since 1 week ago Sunday. Shenotes that the week prior to her last bowel movement she was instructed to start taking an iron supp lement which she did, but then noted that it made her more constipated and so she stopped it. She states that she tried a stool softener for a couple of days without relief and then switched to a laxative. She is lactose intolerant and normally dairy products cause diarrhea, however they too were unsuccessful. She has been trying to increase the fiber in her diet and stay well hydrated. This has otherwise been uncomplicated, she gets her care in [place] but was down in [place] visiting friends and so presented to [facility]. PMHx: None PSHx: LTCS OBHx: - G1 underwent IOL for PROM with arrest of dilation and subsequent LTCS, otherwise uncomplicated GynHx: Reg menses, no abnl paps or STI's O: BP 110/61 Pulse 87 Temp(Src) 36.6 ??C (97.9 ??F) (Tympanic) Resp 18 Gen: Appears well, NAD Abd: Soft, nontender, nondistended, appropriately gravid at umbilicus Extrem: WWP FHT: 150 bpm Verdi quiescent A/P: 22 y.o. at 19w6d presents with ongoing constipation and resultant abdominal discomfort. AVSS, no acute distress. Had a discussion about diet habits (increased fiber and adequate hydration, especially prune juice) as well as developing a more routine bowel regimen with a daily stool softener such as colace and a laxative such as miralax. For the shortterm, also discussed using a bisacodyl suppository to encourage defecation in conjunction with some milk of magnesia and prune juice. Discussed continuing the scheduled regimen of colace/miralax until she has loose stools and continuing to work on adjusting her diet appropriately to have more regular bowel movements. Also encouragedher to discuss this ongoing issue with her primary OB in [place]. Patient agreeable to plan, allquestions answered. Will d/c home now. Pt discussed with Dr. Lea Santoro MD 06/18/2012 0:34 documented in this encounter Miscellaneous Notes * Scanned Note-Null - HOMOEOPATH, SCAN 2 - 06/25/2012 0757 EST * Scanned Note-Null - HOMOEOPATH, SCAN 2 - 06/18/2012 0801 EST * Scanned Note-Null - HOMOEOPATH, SCAN 2 - 06/18/2012 0801 EST documented in this encounter Plan of Treatment Upcoming Encounters Date Type Department Care Team (Late st Contact Info) Description 06/04/2024 13:30 EST Office Visit [facility] - [facility] [address] [place] [address] Clark Hall DO [address] [place] [address] documented as of this encounter Visit Diagnoses Not on filedocumented in this encounter Administered Medications Inactive Administered Medications - up to 3 most recent administrations Medication Order MAR Action Action Date Dose Rate Site bisacodyl (DULCOLAX) suppository 10 mg 10 mg, rectal, NOW X1, 1 dose, On Sun06/18/12 at 0030, STAT Given 06/18/2012 0:30 EST 10 mg docusate sodium (COLACE) capsule 100 mg 100 mg, oral, 2 TIMES DAILY, First dose on Sun06/18/12 at 0030, Until Discontinued, STAT Given 06/18/2012 0:31 EST 100 mg magnesium hydroxide (MILK OF MAGNESIA) 400 mg/5 mL suspension 30 mL 30 mL, oral, NOW X1, 1 dose, On Sun06/18/12 at 0045, Routine Given 06/18/2012 0:44 EST 30 mL PEG 3350-Electrolytes (MIRALAX) packet 17 g 17 g, oral, DAILY, First dose on Sun06/18/12 at 0030, Until Discontinued, STAT Given 06/18/2012 0:31 EST 17 g documented in this encounter Discontinued Medications Medication Sig Discontinue Reason Start Date End Da te ferrous gluconate (FERGON) 324 mg (38 mg iron) tablet Take 324 mg by mouth 2 times daily with breakfast and dinner. 06/18/2012 documented as of this encounter Historical Medications * This list may reflect changes made after this encounter. Medication Sig Dispensed Refills Start Date End Date pediatric multivitamin (ERICKA CHEW VIT) chewable tablet Take 1 Tab by mouth daily. ferrous gluconate (FERGON) 324 mg (38 mg iron) tablet Take 324 mg by mouth 2 times daily with breakfast and dinner. 06/18/2012 added in this encounter Active and Recently Administered Medications Times are shown in EST. Scheduled Medication Order 06/16/2012 06/17/2012 06/18/2012 bisacodyl (DULCOLAX) suppository 10 mg 10 mg, rectal, NOW X1, 1 dose, On Sun06/18/12 at 0030, STAT 0030 (Given - Provid er: Madeline Marquez RN) docusate sodium (COLACE) capsule 100 mg 100 mg, oral, 2 TIMES DAILY, First dose on Sun06/18/12 at 0030, Until Discontinued, STAT 0031 (Given - Provid er: Madeline Marquez RN) magnesium hydroxide (MILK OF MAGNESIA) 400 mg/5 mL suspension 30 mL (COMPLETED) 30 mL, oral, NOW X1, 1 dose, On Sun06/18/12 at 0045, Routine 0044 (Given - Provid er: Madeline Marquez, OPAL) PEG 3350-Electrolytes (MIRALAX) packet 17 g 17 g, oral, DAILY, First dose on Sun06/18/12 at 0030, Until Discontinued, STAT 0031 (Given - Provid er: Madeline Marquez, OPAL) documented in this encounter Orders Transfer Count Last Ordered Date First Orde red Date NOTIFY PPS OF DISCHARGE COMPLETE 06/18/19 13 Discharge Count Last Ordered Date First Orde red Date DISCHARGE PATIENT 1 06/18/2012 documented in this encounter Care Teams Tractor Trailer Operator Relationship Specialty Start Date End Date Segundo Alfaro MD [address] [place] [id number] PCP - General 12/19/11 08/08/20 documented as of this encounter
--- OUTSIDE RECORDS SUMMARY | 2024-01-09 10:58 | XMS_ITS | Encounter Summary ---
Author Organization [facility] Address [address] [place] [address] Care Team Providers Care Human Resources Analyst Name Role Phone Segundo Alfaro MD Primary Care Provider [phone] Encounter Details Date Type Department Care Team (Late st Contact Info) Description 05/02/2010 Historical Results Only [facility] - [address] [id number] Antonio Carmichael DO [address] [facility] [place] [phone] Social History Tobacco Use Types Packs/Day Years Used Date Smoking Tobacco: Never Assessed Sex and Gender Information Value Date Recorded Sex Assigned at Not on file Gender Identity Female 08/09/2020 12:13 EST Sexual Orientation Not on file documented as of this encounter Plan of Treatment Upcoming Encounters Date Type Department Care Team (Late st Contact Info) Description 06/04/2024 13:30 EST Office Visit [facility] Adult Neurology - [facility] [address], [place] [address] Clark Hall DO [address] [place], [place] [address] documented as of this encounter Procedures Procedure Name Priority Date/Time Associated Diagnosis Comments PAP TEST Routine 05/02/2010 13:23 EST documented in this encounter Results * PAP TEST (05/02/2010 13:23 EST) 05/02/2010 13:2 3 EST 05/02/2010 16:52 EST Narrative [facility] - 05/04/2010 12:49 EST ----- ------- Name: PAIGE LYNN ? : [birth year] ?Age/Sex: 29/F ?Unit#: [id number] ? Loc: AGO ? Status: REG POV ?? Reg Date: 05/02/10 ? Pt.Phone Number: ? ----- ------- Specimen: [id number] ?STATUS: SOUT ?Spec Date:05/02/10 ? Physician Copies: ?Antonio Carmichael DO Tissues: ? Cervical/Endo Pap ?Leslie Herrera CPT: 36289 ?? Units: ??1 ----- ------- ? CYTOLOGY DIAGNOSIS SPECIMEN ADEQUACY: ?Satisfactory for evaluation. Transformation zone component present. GENERAL CATEGORIZATION: ?Negative for Intraepithelial Lesion or Malignancy DESCRIPTIVE DIAGNOSIS: ? Negative for Intraepithelial Lesion or Malignancy. RECOMMENDATIONS/COMMENTS: ?None. ----- ------- ORDER QUERIES: LMP: SPOTTING- SPOTTING ? N Post ? Y ??PREVIOUS ATYPICAL: Y BCP/HRT? N Rad Rx? N IUD? N ??PAP PLUS HPV? N ??REFLEX TO HR-HPV IF ASCUS ?? REFLEX TO HPV 16/18 IF HPV POS/PAP NEG ?? HPV REGARDLESS?RFLX HPV IF LSIL ?? IF ASCUS DO HPV? Y Signed Carmelina Monroe CT(ASCP) 05/04/10 ? By the signature above, the attending physician certifies that he/she has personally conducted a gross and/or microscopic examination of the described specimens and rendered or confirmed the above diagnosis. Test Performed by [facility], [address] [place] [id number] Inspector And Unloader: Lacey Hein MD PHD ----- ------- Antonio Carmichael DO PATHOLOGY ORDERABLES [facility] documented in this encounter Visit Diagnoses Not on filedocumented in this encounter Care Teams Human Resources Analyst Relationship Specialty Start Date End Date Segundo Alfaro MD [address] [place] [phone] PCP - General 12/19/11 08/08/20 documented as of this encounter
--- OUTSIDE RECORDS SUMMARY | 2024-01-09 10:58 | XMS_ITS | Encounter Summary ---
Author Organization Health system Address [address] [place] [address] Care Team Providers Care Photography Intern Name Role Phone Segundo Alfaro MD Primary Care Provider [phone] Encounter Details Date Type Department Care Team (Late Contact Info) Description 04/04/2012 Results Only [facility]- [facility] [phone] Rajeev Montoya Social History Tobacco Use Types Packs/Day Years Used Date Smoking Tobacco: Never Assessed Sex and Gender Information Value Date Recorded Sex Assigned at Not on file Gender Identity Female 08/09/2020 12:13 EST Sexual Orientation Not on file documented as of this encounter Plan of Treatment Upcoming Encounters Date Type Department Care Team (Late Contact Info) Description 06/04/2024 13:30 EST Office Visit [facility] Adult Neurology - [facility] [place] [address], [place] [id number] Clark Hall DO [address] [place], [place] [phone] documented as of this encounter Procedures Procedure Name Priority Date/Time Associated Diagnosis Comments PAP TEST- RESULT ONLY Routine 04/04/2012 0:00 EDT documented in this encounter Results * PAP TEST- RESULT ONLY (04/04/2012 0:00 EDT) Pathology Report: CYTOPATHOLOGY REPORT Reports generated via electronic interface contain original data; however they are lacking the format of the original report. Caution should be taken when reading/interpreti ng unformatted reports. Name: ? PAIGE CAPUTO ? Accession #: ? [id number] : ? 1990 (Age: 21) ??F ?Collect Date: ? 04/04/2012 Location: ? [facility] ? Receive Date: ? 04/08/2012 Provider: ?RAJEEV MONTOYA PA Copy to: ? Specimen/Source: ?Pap Test, Cervix/Endocervix, ThinPrep Imaging System with manual evaluation Last Menstrual Period: ? 01/2012 Menstrual/Pregnanc y Status: ? SPECIMEN ADEQUACY ? Satisfactory for Evaluation - transformation zone component present GENERAL CATEGORIZATION ? Negative for Intraepithelial Lesion or Malignancy ? Document reviewed and electronically signed by: ? BRIGID Barboza(ASCP) ? Report Date: ??04/11/2012 13:17 End of Report [facility] 04/04/2012 04/08/2012 Rajeev Montoya PATHOLOGY ORDERABLES [facility] [address] [place] [address] documented in this encounter Visit Diagnoses Not on filedocumented in this encounter Care Teams Photography Intern Relationship Specialty Start Date End Date Segundo Alfaro MD [address] [place] [place] [phone] PCP - General 12/19/11 08/08/20 documented as of this encounter
--- OUTSIDE RECORDS SUMMARY | 2024-01-09 10:58 | XMS_ITS | Referral Summary ---
Author Organization [facility] Address [address] [place] [address] Care Team Providers Care Claim Analyst Name Role Phone [facility] are Provider Encounters Date Type Department Care Team Description 12/18/2023 Telephone [facility] Adult Neurology - [facility] [address] [place] [address] Clark Hall DO Appointment Related from Last 3 Months Allergies Active Allergy Reactions Criticality Noted Date Comments Latex 12/11/2019 Pt reports burning feeling, redness, discomfort Sulfa (Sulfonamide Antibiotics) 06/17/2012 Sulfasalazine 12/11/2019 Pt reports did not help with pain, made it hard to think, made brain feel like it was being eletrocuted Medications Medication Sig Dispensed Refills Start Date End Date Status pediatric multivitamin (ERICKA CHEW VIT) chewable tablet Take 1 Tab by mouth daily. Active docusate sodium (COLACE) 100 mg capsule Take 1 Cap by mouth 2 times daily. 60 Cap 1 06/18/2012 Active Additional Information Patient not taking.Reported on 12/11/2019 PEG 3350-Electrolytes (MIRALAX) 17 gram packet Take 17 g by mouth daily. 30 Each 3 06/18/2012 Active Additional Information Patient not taking.Reported on 12/11/2019 MULTIVITAMIN ORAL Take by mouth daily. Active budesonide-formoterol HFA (SYMBICORT) 80-4.5 mcg/actuation HFA aerosol inhaler inhaler Inhale 2 Puffs as directed 2 times daily. Active albuterol (VENTOLIN HFA) 90 mcg/actuation inhaler Inhale 2 Puffs as directed 4 times daily as needed. Active fluticasone propionate (FLONASE) 50 mcg/actuation nasal spray Instill 1 Miracle into both nostrils daily. 10/15/2018 Active Social History Tobacco Use Types Packs/Day Years Used Date Smoking Tobacco: Former Cigarettes 0 06/2009 - 05/2010 Smokeless Tobacco: Never Comments:only smoked for a f ew months in college, when smokin cigarette every few days Alcohol Use Standard Drinks/Week Comments No 0 (1 standard drink = 0.6 oz pur e alcohol) Interpersonal Safety Answer Date Record ed Physically Hurt Never 01/18/2020 Verbally Threaten Not on file 01/18/2020 Sex and Gender Information Value Date Recorded Sex Assigned at Not on file Gender Identity Female 08/09/2020 12:13 EST Sexual Orientation Not on file Last Filed Vital Signs Vital Sign Reading Time Taken Comments Blood Pressure 115/71 08/09/2020 1540 EST Pulse 79 08/09/2020 1143 EST Temperature 36 ??C (96.8 ??F) 08/09/2020 1143 EST Respiratory Rate 18 08/09/2020 1540 EST Oxygen Saturation 98% 08/09/2020 1540 EST Inhaled Oxygen Concentration - - Weight 77.1 kg (170 lb) 08/09/2020 1143 EST Height 152.4 cm (5') 08/09/2020 1143 EST Body Mass Index 33.2 08/09/2020 1143 EST Functional Status Functional Status Response Date of Assess ment Because of a physical, menta l, or emotional condition, does this person have difficulty doing errands alone such as visiting a doctor's office or shopping? No 12/11/2019 Cognitive Status Response Date of Assessm ent Because of a physical, menta l, or emotional condition, does this person have serious difficulty concentrating, remembering, or making decisions? Yes 12/11/2019 Plan of Treatment Upcoming Encounters Date Type Department Care Team (Late st Contact Info) Description 06/04/2024 13:30 EST Office Visit [facility] Adult Neurology - [facility] [address] [place] [address] Clark Hall, DO [address] [place] [address] Procedures Procedure Name Priority Date/Time Associated Diagnosis Comments HEPATITIS C AB W REFLEX TO HCV RNA BY PCR Routine 02/27/2023 16:30 EDT from Last 3 Months or Most Recently Relevant to Health Maintenance Results * HEPATITIS C AB W REFLEX TO HCV RNA BY PCR (02/27/2023 16:30 EDT) Hep C Antibody Negative Negative 03/01/2023 10:[address] [facility] Blood VENOUS BLOOD / Unknown 02/27/2023 16:30 EDT 02/28/2023 17:13 EDT Provider Outr Resulting Lab CHEMISTRY & BLOOD GAS ORDERABLES [facility] [address] [place] [address] from Last 3 Months or Most Recently Relevant to Health Maintenance Care Teams Claim Analyst Relationship Specialty Start Date End Date [address] [address] PCP - General 08/09/20
--- OUTSIDE RECORDS SUMMARY | 2024-01-09 10:58 | XMS_ITS | Encounter Summary ---
Author Organization [facility] Address [address] [place] [address] Care Team Providers Care Employment Supervisor Name Role Phone Bettina [facility] Medicine Primary C are Provider Reason for Visit * Reason Comments Aphasia Pt ambulatory to tri age, see Jordan. Pt reports alternating L and R sided body numbness since Sunday, stuttering/delayed speech. Currently reports R sided weakness, left facial droop, dizziness, head/neck/spine pain. Seen at [facility] ED twice last week. Encounter Details Date Type Department Care Team (Late st Contact Info) Description 08/09/2020 11:45 EST - 08/09/2020 16:14 EST Emergency [facility] Emergency Department - Main [address] [id number] Christiano Quiroz MD [address] [facility], [address] [place] [address] Paresthesia (Primary Dx); Speech disturbance, unspecified type Discharge Disposition: Home or Self Care Social [...] 12:13 EST Sexual Orientation Not on file COVID-19 Exposure Response Date Recorded In the last month, have you been in contact with someone who was confirmed or suspected to have Coronavirus / COVID-19? No / Unsure 08/09/2020 11:44 EST documented as of this encounter Last Filed [...] Body Mass Index 33.2 08/09/2020 1143 EST documented in this encounter Functional Status Functional Status Response Date of [...] concentrating, remembering, or making decisions? Yes 12/11/2019 documented as of this encounter Discharge Instructions * Discharge Instructions* Christiano Quiroz MD - 08/09/2020 15:22 EST You were seen for various areas of weakness, numbness. Our neurology team did not see any signs of anything dangerous, or recommend further testing. It could be migraines causing this, among other causes. we expect it to get better on its own over the next few days to weeks. We recommend you follow-up with a neurologist, in the next several days, or your primary care doctor. Please return for any worsening symptoms. I hope that you feel better. documented in this encounter Medications at Time of Discharge Medication Sig Dispensed Refills Start Date End Date albuterol (VENTOLIN HFA) 90 mcg/actuation inhaler Inhale 2 Puffs as directed 4 times daily as needed. budesonide-formoterol HFA (SYMBICORT) 80-4.5 mcg/actuation HFA aerosol inhaler inhaler Inhale 2 Puffs as directed 2 times daily. docusate sodium (COLACE) 100 mg capsule Take 1 Cap by mouth 2 times daily. 60 Cap 1 06/18/2012 fluticasone propionate (FLONASE) 50 mcg/actuation nasal spray Instill 1 [place] into both nostrils daily. 10/15/2018 MULTIVITAMIN ORAL Take by mouth daily. pediatric multivitamin (ERICKA CHEW VIT) chewable tablet Take 1 Tab by mouth daily. PEG 3350-Electrolytes (MIRALAX) 17 gram packet Take 17 g by mouth daily. 30 Each 3 06/18/2012 documented as of this encounter Discharge Disposition Disposition Code Departure Means Destination Comment s Home or Self Intermediate Ambulatory without support. Understands discharge documented in this encounter Consult Notes * Margot Avila MD - 08/09/2020 1431 EST Neurology Consult Note Admit Date: 08/09/2020 Date of Service: 08/09/2020 Reason for Consult: paresthesias HPI: Paige Caputo is a 30 y.o. female with a PMH of fibromyalgia, chronic headaches, and allergic rhinitis, who presents to the ED as a transfer from [facility] for subacute migratory paresthesias. The patient first started feeling unwell two weeks ago. She reports feeling run down with dyspnea, rhinorrhea, and chest tightness. Although these symptoms improved, she had left-sided facial droop one week ago. She was diagnosed with Rowena palsy after seeing her PCP via televideo on Sunday (1 weekago). She was prescribed prednisone and valacyclovir (currently on day 5). Then on Sunday, she had left-sided numbness of her upper and lower extremities. She also had difficulty with expressive speech, described as trouble getting her words out. She presented to the ED,but MRI was normal and symptoms self-resolved while in the ED. She was discharged home, but she deve loped right-sided numbness of her upper and lower extremities on . She returned to the ED. Lyme testing was normal. MRI C-spine was unrevealing. The patient was discharged, but has had intermittent, migratory paresthesias since then. She explains that the numbness (described as decreased sensation, not lack of sensation) switched sides again. Rather than right-sided numbness, she again had left-sided numbness. Subsequently, numbness became bilateral lower extremity numbness. Currently, the patient reports right-sided face, upper extremity, and lower extremity numbness, and persistent left-sided facial droop. The patient reports chronic headache lasting >1 year, for which she follows with her PCP. She has a family history of migraines (mother, aunt, and cousin). Her aunt has intermittent facial droop, but no history of focal weakness associated with her migraines. Most recently, the patient has headaches described as an electric current, which is located along the right front of her head. These e lectric current headaches occur intermittently and occur superimposed on her chronic, nonstop headache. She takes a muscle relaxant for her fibromyalgia. Her medications also include PRN ibuprofenfor headaches, two inhalers, and a nasal spray. No recent medication changes, other than the steroid and anti-viral. PMH PSH Past Medical History: Diagnosis Date ??? Anemia Past Surgical History: Procedure Laterality Date ??? CHOLECYSTECTOMY, LAPAROSCOPIC 2010 Social History Family History Social History Tobacco Use ??? Smoking status: Former Smoker Types: Cigarettes Start date: 2009 Quit date: 2009 Years since quittin.1 ??? Smokeless tobacco: Never Used ??? Tobacco comment: only smoked for a few months in college, when smokin cigarette every few days Substance Use Topics ??? Alcohol use: No No family history on file. Medications Current Facility-Administered Medications Medication Route Frequency ??? ketOROLAC (TORADOL) injection 15 mg intravenous Now Current Outpatient Medications Medication ??? albuterol (VENTOLIN HFA) 90 mcg/actuation inhaler ??? budesonide-formoterol HFA (SYMBICORT) 80-4.5 mcg/actuation HFA aerosol inhaler inhaler ??? docusate sodium (COLACE) 100 mg capsule ??? fluticasone propionate (FLONASE) 50 mcg/actuation nasal spray ??? MULTIVITAMIN ORAL ??? pediatric multivitamin (ERICKA CHEW VIT) chewable tablet ??? PEG 3350-Electrolytes (MIRALAX) 17 gram packet Allergies Allergies Allergen Reactions ??? Latex Pt reports burning feeling, redness, discomfort ??? Sulfa (Sulfonamide Antibiotics) ??? Sulfasalazine Pt reports did not help with pain, made it hard to think, made brain feel like it was being eletrocuted Review of Systems: A ten point review of systems was performed and was negative except for pertinent positives noted in the HPI Objective: Vital signs: Patient Vitals for the past 8 hrs: BP Pulse Heart Rate Resp Temp SpO2 08/09/20 1400 113/89 -- 72 BPM 13 -- 100 % 08/09/20 1200 112/60 -- 72 BPM 20 -- 97 % 08/09/20 1143 119/70 79 -- 18 36 ??C (96.8 ??F) 100 % Physical Exam: General appearance: alert, cooperative, no distress, appears stated age. Skin: Skin color, temperature, turgor normal. No rashes or lesions HEENT: Normocephalic, atraumatic, nonerythematous conjunctivae, MMM, neck with full ROM; no pain Lungs: clear to auscultation bilaterally Heart: regular rate and rhythm, +S1, S2 normal, no murmur, rub or gallop appreciated Extremities: all extremities warm and well perfused. Pulses: 2+ and symmetric Neurological exam: Mental Status: A&Ox4; follows commands. Speech is slow with pauses between syllables, but improves with distraction. No dysarthria. Cranial Nerves: CN I: Deferred CN II: Visual wang full to confrontation. No afferent pupillary defect noted. Vision is 20/20 in both eyes CN III-IV & : EOMI. PERRL 5mm-->3mm B/L. No ptosis. No nystagmus noted CN V: V1-V3 intact to light touch (but altered on the right compared to the left). CN VII: Left-sided facial droop, sparing the eyebrow CN VIII: Hearing is grossly intact. No nystagmus noted CN IX-X: Palate elevates symmetrically on activation. No hoarseness or dysarthria CN XI: Symmetric shoulder shrug. CN XII: Tongue protrusion midline, without deviation, atrophy, or fasciculations Motor: Normal tone and bulk for age No fasciculations observed, no tremor, no involuntary movements observed No rigidity or clonus Strength: Upper Extremities: Right Left Shoulder Abduction 4/5 5/5 Shoulder Adduction 4/5 5/5 Elbow Flexion 4/5 5/5 Elbow Extension 4/5 5/5 Wrist Flexion 4/5 5/5 Wrist Extension 4/5 5/5 Hand Public Relations Coordinator 4/5 5/5 Lower Extremities: Right Left Hip Flexion 4/5 5/5 Knee Flexion 4/5 5/5 Knee Extension 4/5 5/5 Dorsiflexion 4/5 5/5 Plantar Flexion 4/5 5/5 Toe plantar Flexion 5/5 5/5 Roper sign positive Deep Tendon Reflexes: Right Left Biceps 2/4 2/4 Triceps 2/4 2/4 Brachioradialis 2/4 2/4 Patellar 2/4 2/4 Achilles 2/4 2/4 Superficial reflexes: Toes downgoing bilaterally Hernández's negative B/L Sensory: light touch and pinprick: intact bilaterally Coordination: [id number]: intact, no dysmetria Heel to Thornton: intact on the left, no dysmetria Normal rapid-alternating movements Gait: Casual gait is slow, hesitant with a wide-base stance Data Review: MR brain without contrast 08/04/2020 No acute intracranial findings on this non-infused MRI scan of the brain. However, there is an element of cerebellar tonsillar ectopia, probably an element of Chiari 1 malformation. MR angio brain without contrast 08/04/2020 Patent intracerebral vessels. No aneurysm evident. MR cervical spine without contrast 08/05/2020 1. At C5-6 level there is a focal posterior slightly right of center disc protrusion which indents the thecal sac and contacts the cervical cord. The actual osseous canal dimensions at this level arewithin normal limits and there is no foraminal stenosis nor facet arthropathy at this level. 2. Other mild disc findings as described above at the C4-5 and C7-T1 levels. 3. Mild cerebellar tonsillar ectopia. No evidence of syrinx nor other abnormality of the cervical spinal cord. CT brain neck CTA 08/04/2020 1. Patent carotid arteries in the neck and intracranial compartement. Middle cerebral arteries and anterior cerebral arteries are also patent. 2. Patent vertebral arteries in the neck although they are somewhat thin at the skull base where they contribute to the formation of the basilar artery, this possibly on developmental basis. No evidence of vertebral artery dissection. 3. Some variant anatomy is noted at the level of the origin of the right posterior cerebral artery,as described above. No evidence of intracranial hemorrhage no ring enhancing lesions in the brain. No abnormal meningeal enhancement. Assessment: Paige Caputo is a 30 y.o. female with a PMH of fibromyalgia, chronic headaches, and allergic rhinitis, who presents to the ED as a transfer from [facility] for subacute, migratory paresthesias. Exam is notable for unilateral altered sensation, effort-dependent R-sided weakness, left-sided facial droop, sparing the forehead, and slow speech. The exam does not localize to any central nervous system process, and the imaging results from [facility] do not demonstrate any aneurysm or intracranial hemorrhage. No evidence of multiple sclerosis or mass. Imaging was notable for Chiari 1 malformation, which would not explain her symptoms. Suspect that her symptoms are due to functional neurological disorder vs migraine headache with aura. However, would recommend pursuing an EMG outpatient to exclude motor or sensory nerve pathology, and this can be performed as an outpatient. Recommendations: - EMG outpatient - Follow up with neurology outpatient - Toradol for headache - Could treat with valproate for abortive headache treatment since urine test was negative Discussed with ED attending, Dr. Tia Avila MD Internal Medicine, PGY-2 pager [phone] 08/09/20 15:09 Associated attestation - Julissa Carias MD - 08/09/2020 1821 EST Attestation statement: I saw and examined the patient with the resident. I agree with the findings and plan of care documented in the resident's note. In brief, this is a 30-year-old woman with PMH headaches, fibromyalgia, allergic rhinitis, who presented with 2 weeks of migratory paresthesias, and facial droop. She had extensive work-up prior to arrival today, including MRI of the brain, MRI of the C-spine, MR a of the head, as well as CTA of the head. None of these revealed any concerning features. Although there is a history of migraines in the family, there is no history of hemiplegic migraines. She states that her aunt also gets word finding difficulty with her migraines. Examination clinic today reveals a brief, stuttering type speech, which is improved with distraction. Although she complained of a left-sided facial droop, on my examination, she had a right sided facial droop. She also had giveaway weakness on the right arm and right leg, along with a positive Roper sign. These suggest nonphysiologic symptoms, though can consider nerve conduction EMG study, to ensure there is no primary myopathic process, which could be an underlying pathology upon which there is an overlying conversion disorder. She states she has a follow-up in [place] neurology next week. She can otherwise consider treatment for migraines, as there is a family history of migraine-associated aphasia. Julissa Carias MD [facility] Neurology 08/09/2020 18:17 documented in this encounter ED Notes * Laura Ahuja RN - 08/09/2020 1600 EST Patient ambulatory without assistance. Got dressed independently. Stated understanding of dischargeinstructions. * Allison Olmedo RN - 08/09/2020 1401 EST 1330 - Neuro at bedside, pt with improved pressured speech 1400 - Ambulates with slow steady gait to restroom. * Christiano Quiroz MD - 08/09/2020 1154 EST This patient received an evaluation and medical screening exam for emergent medical conditions at the [facility] on 08/09/2020 Scribe attestation: This documentation is recorded by Freedom Cummings acting as Scribe under the direction and presence of Christiano Quiroz MD. Christiano Quiroz MD: I personally performed the services recorded by the scribe in my presence. I confirm the scribe's documentation has been reviewed by me to accurately and completely record my work, treatment, procedures, and medical decision making. Chief Complaint Aphasia (Pt ambulatory to triage, see Tcall. Pt reports alternating L and R sided body numbness since Sunday, stuttering/delayed speech. Currently reports R sided weakness, left facial droop, dizziness, head/neck/spine pain. Seen at [facility] ED twice last week.) NI Caputo is a 30 y.o. female with PMH including anemia who presents to the ED for aphasia, numbness, and weakness. Patient reports two weeks ago she had felt a bit run down with symptoms thatshe describes as a head-cold with associated chest pain and difficulty breathing. One week ago patient had a Telemedicine chat with her PCP who identified left-sided facial droop present. This was possibly attributed to Rowena Palsy and the patient has been taking Prednisone and Valacyclovir which her PCP prescribed to no relief of symptoms thus far. About 5 days ago she had received a COVID-19 swap and she relays that on the drive home her left leg had gone completely numb. Patient presented tothe ED in [facility] where she reports having an MR head, CT head, and labs performed - studies are not within our EHR. While within the ED her left lower leg sensation had returned. The followingday, she then lost sensation to her entire right side of the body including her face, extremities, and trunk. She had presented to the [facility] ED again where she had an MR head and neck performed. She reports her COVID-19 swab had returned negative at that time. Over the past several days shehas had sporadic numbness to her body, her speech has been intermittently slow, she has had intermittent blurry vision, diaphoresis, urinary frequency, and she has had electical current headaches wh ich have also been intermittent in nature. Patient was referred to the ED by her provider at [facility] for Neurologic consult. On ED arrival she relays that she is able to wiggle her toes although her upper legs feel very heavy. Her right arm also feels very heavy. Patient has had decreased sensation to the entire right side of her body today. Patient denies a fever, chills, cough, double vision, chest pain, and shortness of breath. Vitals are stable upon ED arrival. Patient uses an inhaler and low-dose muscle relaxer for management of her Fibromyalgia. She is not currently on any hormonal supplements or control methods. She is unaware of any recent tick bites. FHx: Reports that her aunt has a history of migraine. She does not know about her fathers side of the family. History was provided by: Patient, fiancee, and medical records. Patient's pertinent PMH, FH, SH were reviewed and updated PRN. ROS A 10-point review of systems was performed. The patient answered negative to all questions with theexceptions of those explicitly detailed as positives in the HPI. Pertinent negatives are also explicitly stated. Physical Exam Vital Signs Vitals Reassessment?: Yes Temp: 36 ??C (96.8 ??F) Temp src: Oral Pulse: 79 Heart Rate: 72 BPM Resp: 13 SpO2: 100 % BP: 113/89 BP MAP: 93 mm Hg BP Device: BP Machine BP Patient Position: Sitting BP Cuff Location: Left arm O2 Device: None (Room air) Nursing notes and vital signs were reviewed. Constitutional: Well appearing, in no acute distress. Eyes: Pupils equal and reactive to light, no scleral icterus Mouth: Moist oral mucosa without apparent lesions Neck: Full ROM,, supple with no meningismus Heart: RRR without murmurs, rubs, or gallops, normal radial pulses Lungs: Clear to ascultation, no respiratory distress or tachypnea Abdomen: Soft NT/ND, no rebound and no guarding Skin: No overt rashes on exposed skin Extremities: Moving spontaneously, warm and well perfused, no edema, no calf tenderness Neuro: Both upper extremities are able to be held antigravity without drift. Slow but strong squeeze with the right hand, normal left hand squeeze. Bicep and tricep strength is 5/5 bilaterally. Strength is 5/5 to the left lower extremity, 4/5 to the right lower extremity but very effort dependent, and other times can lift antigravity without issue. No clonus of the ankles. Globally alert and oriented to person, place and time Speech is slow and stuttering but not truly dysarthric, no aphasia Pupils equal round and reactive, EOM are intact, no nystagmus, peripheral vision is intact CN 2-12 are intact aside fromsubtle left-sided facial droop, appears to be effort dependent, and attimes not noted Sensation feels wheat and oats flake miller in the right face right arm and right leg, normal in the left face, left arm and left leg Gait is steady, she is able to walk unassisted Psych: No agitation or overt thought disorder Medical Decision Making The patient is a 30 y.o. female, who presents with various neurologic symptoms, with altering distributions. Her symptoms do not fit with a focal neurologic area. She has had negative brain imaging over the past week at an outside institution. MS is a consideration but seems less likely based on clinical history and exam. With the intermittent resolution in the symptoms it seems less likely sensory Guillain-Berg??. She has her usual headache, this could be a complex migraine. The headache is similar to prior, with no red flags to suggest meningitis, encephalitis, subarachnoid hemorrhage or other dangerous etiology, I do not see an indication for lumbar puncture. She has had negative recent n euroimaging that I do not think needs to be repeated acutely. We will check basic labs, and consultthe neurology team. Case was discussed, and seen by neurology team, they agreed she did not need any further urgent testing but recommended neurology follow-up which she has locally. They can consider further work-up such as EMG and other testing if her symptoms persist. [facility]. A leukocytosis was noted here, but she is on outpatient prednisone and she denies any infectious symptoms. I discussed these results with the patient, reasons to return, follow-up plan, she is comfortable with this, and was discharged in stable condition. She was ableto ambulate unassisted, out of the emergency department with family and on reassessment her symptoms including headache and weakness had improved. Prior to discharge discussed with the patient likely diagnosis, expected course, treatment plan, follow-up plan and reasons to return. <principal problem not specified> Laboratory Results Labs Reviewed COMPREHENSIVE METABOLIC PANEL (CMP) - Abnormal Result Value Status Sodium 141 Final Potassium 4.8 Final Chloride 102 Final CO2 Total 26 Final Glucose 107 (*) Final BUN 19 Final Creatinine 0.55 Final eGFR 125 Final Total Protein 7.8 Final Albumin 5.0 (*) Final Alkaline Phosphatase 67 Final AST 20 Final ALT 25 Final Bilirubin, Total <0.5 Final Calcium 9.8 Final Calculated Calcium 9.0 Final COMPLETE BLOOD COUNT AND DIFFERENTIAL - Abnormal WBC 18.82 (*) Final RBC 5.42 (*) Final Hemoglobin 14.3 Final HCT 43.7 Final MCV 81 Final MCH 26.4 (*) Final MCHC 32.7 Final RDW-CV 12.5 Final RDW-SD 35.5 Final PLT 148 Final MPV Final Neutrophils 87.6 Final Lymphocytes 7.5 Final Monocytes 3.0 Final Eosinophils 0.2 Final Basophils 0.3 Final Immature Grans 1.4 Final Absolute Neutrophils 16.47 (*) Final Absolute Lymphocytes 1.42 Final Absolute Monocytes 0.57 Final Absolute Eosinophils 0.03 Final Absolute Basophils 0.06 Final Absolute Immature Grans 0.27 (*) Final Type of Differential: Auto Final MAGNESIUM - Normal Magnesium 2.3 Final EXTRA BLOOD DRAW (RAINBOW) Narrative: The following orders were created for panel order EXTRA BLOOD DRAW (RAINBOW). Procedure Abnormality Status --------- ------ HOLD BLUE TOP[[id number]] Final result HOLD GREEN TOP[[id number]] Final result HOLD LAVENDER TOP[[id number]] Final result HOLD SST[[id number]] Final result Please view results for these tests on the individual orders. HOLD BLUE TOP Hold Hold Final HOLD GREEN TOP Hold Hold Final HOLD LAVENDER TOP Hold Hold Final HOLD SST Hold Hold Final POCT TEST, CLINITEK ORDER Narrative: The following orders were created for panel order POCT TEST, CLINITEK ORDER. Procedure Abnormality Status --------- ------ POCT TEST, CLI...[[id number]] Final result POCT CSN BARCODE URINE P...[[id number]] Final result Please view results for these tests on the individual orders. POCT CSN BARCODE URINE PREG TEST Hold Hold Final POCT TEST, CLINITEK UPT Result Negative Final Tech ID [id number] Final HN LAB COMMENT (CLINITEK, UPT) Test performed at Emergency Department Final Data Interpretation Laboratory results independently reviewed, significant for: WBC of 18.82, patient is on steroids which would explain this elevation. She has denied any infectious symptoms. Procedures Procedures ED Course A medical screening exam was performed. After evaluating the patient, a CBC, CMP, UPT, and magnesium were ordered. Plan on consulting Neurology. 1311: Paged Neurology resident. 1321: Neurology are present within the ED and will evaluate the patient. Medical Records from [facility] had been transferred: ?? 08/04 MR Brain returned negative. MRA demonstrated no aneurysm. ?? 08/05 MR Head and Neck demonstrated that at C5-C6 there is a focal posterior slightly right of center disc protrusion which indents the thecal sac and contacts the cervical cord. The actual osseouscanal dimensions at this level are within normal limits and there is no foraminal stenosis nor facet arthropathy at this level. Mild cerebellar tonsillar ectopia. No evidence of syrinx nor other abnormality of the spinal cord. 1428: Neurology evaluated the patient Advised administering Toradol within the ED. She is stable for discharge from a Neurology standpoint, they will follow-up with her as an outpatient for EMG testing. 1511: On reevaluation, patients??? speech is improved and she is texting with both hands without issue. Patient was informed that Neurology have evaluated her and we have reviewed her outside imaging, she will be administered 15 mg IV Toradol within the ED to treat her symptoms. Patient will follow-up with her Neurologist as an outpatient. She had no questions at this time. She continues to deny a fever and recent urinary issues. Patient was discharged home with instructions to follow-up with her PCP Dr. Lorenzana and with her Neurologist as an outpatient. Prior to discharge usual and customary precautions were reviewed with the patient including follow-up instructions and reasons to return to the Emergency Department if condition worsens, does not improve as expected, or other new concerns arise. Disposition Final diagnoses: Paresthesia Speech disturbance, unspecified type Disposition decisions were made weighing risks and benefits of hospitalization vs. outpatient treatment, the risk for further decompensation, and the patient's wishes. The patient's pain was managed to an adequate level weighing risk vs. benefit of further medications. Upon departure from the Emergency Department, the patient's pain appeared to be 6 on a zero to ten scale. Any further pain treatment will be at the discretion of the provider following up with the patient based on their clinical assessment. Condition at departure from the Emergency Department: Improved * Mercedez Plummer RN - 08/09/2020 9809 EST TEJAS CAPUTO 1990. REFERRED BY JULISSA CARIAS AT [facility]. NEEDS NEURO EVAL. PARATHESIS, SPEECH CHANGES. NOTE TAKEN BY Tea QUIROZ. (LMP) documented in this encounter Plan of Treatment Upcoming Encounters Date Type Department Care Team (Late st Contact Info) Description 06/04/2024 13:30 EST Office Visit [facility]rology - [facility] [address] [place] [address] Calrk Hall DO [address] [place] [address] documented as of this encounter Procedures Procedure Name Priority Date/Time Associated Diagnosis Comments CT OUTSIDE IMAGES NEURO Routine 08/09/2020 15:44 EST MR OUTSIDE IMAGES NEURO Routine 08/09/2020 15:42 EST MR OUTSIDE IMAGES NEURO Routine 08/09/2020 15:41 EST XR OUTSIDE IMAGES CHEST Routine 08/09/2020 15:38 EST POCT CSN BARCODE URINE PREG TEST STAT 08/09/2020 12:38 EST HOLD SST Routine 08/09/2020 12:37 EST MAGNESIUM STAT Add-on 08/09/2020 12:37 EST COMPREHENSIVE METABOLIC PANEL (CMP) STAT Add-on 08/09/2020 12:37 EST POCT TEST, CLINITEK ORDER STAT 08/09/2020 12:36 EST HOLD LAVENDER TOP Routine 08/09/2020 12: 36 EST HOLD GREEN TOP Routine 08/09/2020 12:36 EST HOLD BLUE TOP Routine 08/09/2020 12:36 EST POCT TEST, CLINITEK STAT 08/09/2020 12:36 EST EXTRA BLOOD DRAW (RAINBOW) Routine 08/09/2020 12:36 EST COMPLETE BLOOD COUNT AND DIFFERENTIAL STAT Add-on 08/09/2020 12:36 EST documented in this encounter Results * CT OUTSIDE IMAGES NEURO (08/09/2020 15:44 EST) Narrative 08/09/2020 15:44 EST This is a non-reportable exam. Provider Unknown MD IMG OTHER IMAGING OR DERABLES * MR OUTSIDE IMAGES NEURO (08/09/2020 15:42 EST) Narrative 08/09/2020 15:42 EST This is a non-reportable exam. Provider Unknown MD IMG OTHER IMAGING OR DERABLES * MR OUTSIDE IMAGES NEURO (08/09/2020 15:41 EST) Narrative 08/09/2020 15:41 EST This is a non-reportable exam. Provider Unknown MD IMG OTHER IMAGING OR DERABLES * XR OUTSIDE IMAGES CHEST (08/09/2020 15:38 EST) Narrative 08/09/2020 15:38 EST This is a non-reportable exam. Provider Unknown MD IMG OTHER IMAGING OR DERABLES * POCT CSN BARCODE URINE PREG TEST (08/09/2020 12:38 EST) Hold Hold 08/09/2020 14:45 EST [facility] Urine URINE SPECIMEN COLLECTION, CLEAN CATCH / Unknown Urine Collect / Unknown 08/09/2020 12:38 EST 08/09/2020 12:38 EST Christiano Quiroz MD LAB INFO SERVICE AND SUPPORT & PHONE RESULT [facility] [address] [place] [address] * (ABNORMAL) COMPREHENSIVE METABOLIC PANEL (CMP) (08/09/2020 12:37 EST) Sodium 141 136 - 145 mEq/L 08/09/2020 13:13 [facility] Potassium 4.8 3.5 - 5.0 mEq/L 08/09/2020 13:13 [facility] Comment: NOTE: Interpret with caution. Prolonged sample storage may alter the result. Chloride 102 96 - 110 mEq/L 08/09/2020 13:13 [facility] CO2 Total 26 22 - 32 mEq/L 08/09/2020 13:13 [facility] Comment: NOTE: Interpret with caution. Prolonged sample storage may alter the result. Glucose 107(H) 70 - 100 mg/dL 08/09/2020 13:13 [facility] BUN 19 10 - 26 mg/dL 08/09/2020 13:13 [facility] Creatinine 0.55 0.52 - 1.04 mg/dL 08/09/2020 13:13 [facility] eGFR 125 >60 mL/min/1.7 3m2 08/09/2020 13:13 [facility] Comment:eGFR calculated [place] CKD-EPI equation for non- Americans. Multiply eGFR by 1.16 for patients. Total Protein 7.8 6.3 - 8.2 g/dL 08/09/2020 13:13 [facility] Albumin 5.0(H) 3.4 - 4.9 g/dL 08/09/2020 13:13 [facility] Alkaline Phosphatase 67 38 - 126 U/L 08/09/2020 13:13 [facility] AST 20 15 - 46 U/L 08/09/2020 13:13 [facility] ALT 25 <35 U/L 08/09/2020 13:13 [facility] Bilirubin, Total <0.5 <1.4 mg/dL 08/09/19 13:13 [facility] Calcium 9.8 8.5 - 10.5 mg/dL 08/09/2020 13:13 EST [facility] Calculated Calcium 9.0 8.5 - 10.5 mg/dL 08/09/2020 13:13 EST [facility] Blood VENOUS BLOOD / Unknown Venipuncture / Unknown 08/09/2020 12:37 EST 08/09/2020 12:41 EST Christiano Quiroz MD CHEMISTRY & BLOOD GA S ORDERABLES Performing Organization Address City/[facility]/ZIP Co de Phone Number [facility] [address] [place] [address] * MAGNESIUM (08/09/2020 12:37 EST) Magnesium 2.3 1.7 - 2.8 mg/dL 08/09/2020 13:07 EST [facility] Blood VENOUS BLOOD / Unknown Venipuncture / Unknown 08/09/2020 12:37 EST 08/09/2020 12:41 EST Christiano Quiroz MD CHEMISTRY & BLOOD GA S ORDERABLES Performing Organization Address [facility] Co de Phone Number [facility] [address] [place] [address] * HOLD SST (08/09/2020 12:37 EST) Hold Hold 08/09/2020 13:45 EST [facility] Blood VENOUS BLOOD / Unknown Venipuncture / Unknown 08/09/2020 12:37 EST 08/09/2020 12:41 EST Christiano Quiroz MD LAB INFO SERVICE AND SUPPORT & PHONE RESULT Performing Organization Address City/[facility] Co de Phone Number [facility] [address] [place] [address] * (ABNORMAL) COMPLETE BLOOD COUNT AND DIFFERENTIAL (08/09/2020 12:36 EST) WBC 18.82(H) 4.00 - 12.40 K/cmm 08/09/2020 13:18 EST [facility] RBC 5.42(H) 3.86 - 5.04 M/cmm 08/09/2020 13:18 [facility] Hemoglobin 14.3 11.6 - 15.2 gm/dL 08/09/2020 13:18 [facility] HCT 43.7 34.9 - 44.4 % 08/09/2020 13:18 [facility] MCV 81 81 - 98 fl 08/09/2020 13:18 [facility] MCH 26.4(L) 26.7 - 33.3 pg 08/09/2020 13:18 [facility] MCHC 32.7 32.1 - 35.9 gm/dL 08/09/2020 13:18 [facility] RDW-CV 12.5 <14.7 % 08/09/2020 13:18 [facility] RDW-SD 35.5 <50.4 fl 08/09/2020 13:18 [facility] PLT 148 141 - 377 K/cmm 08/09/2020 13:18 [facility] MPV 08/09/2020 13:18 [facility] Comment:Not Available % Neutrophils 87.6 % 08/09/2020 13:18 [facility] % Lymphocytes 7.5 % 08/09/2020 13:18 [facility] % Monocytes 3.0 % 08/09/2020 13:18 [facility] % Eosinophils 0.2 % 08/09/2020 13:18 [facility] % Basophils 0.3 % 08/09/2020 13:18 [facility] % Immature Grans 1.4 % 08/09/19 13:18 [facility] Absolute Neutrophils 16.47(H) 2.20 - 8.85 K/cmm 08/09/2020 13:18 [facility] Absolute Lymphocytes 1.42 1.09 - 3.30 K/cmm 08/09/2020 13:18 [facility] Absolute Monocytes 0.57 0.10 - 0.80 K/cmm 08/09/2020 13:18 [facility] Absolute Eosinophils 0.03 0.03 - 0.61 K/cmm 08/09/2020 13:18 [facility] ABS Basophils 0.06 0.01 - 0.11 K/cmm 08/09/2020 13:18 [facility] Absolute Immature Grans 0.27(H) 0.00 - 0.06 K/cmm 08/09/2020 13:18 [facility] Type of Differential: Auto 08/09/2020 13:18 [facility] Blood VENOUS BLOOD / Unknown Venipuncture / Unknown 08/09/2020 12:36 EST 08/09/2020 12:41 EST Christiano Quiroz MD PACKAGES & DNA PROBE ORDERABLES Performing Organization Address [facility] Phone Number [facility] [address] [place] [address] * POCT TEST, CLINITEK (08/09/2020 12:36 EST) UPT Result Negative Negative 08/09/2020 12:46 [facility] smasher hand ID [id number] 08/09/2020 12:46 [facility] HN LAB COMMENT (CLINITEK, UPT) Test performed at Emergency Department 08/09/2020 12:46 [facility] Comment:False negative resul ts may occur in women who are beyond 5-8 weeks gestation. Diagnosis of should be based on a correlation of test results with typical clinical signs and symptoms. Urine URINE SPECIMEN COLLECTION, CLEAN CATCH / Unknown 08/09/2020 12:36 EST 08/09/2020 12:46 EST Christiano Quiroz MD POINT OF CARE TEST O RDERABLES Performing Organization Address [facility] Co de Phone Number [facility] [address] [place] [address] * HOLD LAVENDER TOP (08/09/2020 12:36 EST) Hold Hold 08/09/2020 13:45 EST [facility] Blood VENOUS BLOOD / Unknown Venipuncture / Unknown 08/09/2020 12:36 EST 08/09/2020 12:41 EST Christiano Quiroz MD LAB INFO SERVICE AND SUPPORT & PHONE RESULT Performing Organization Address [facility] Co de Phone Number [facility] [address] [place] [address] * HOLD GREEN TOP (08/09/2020 12:36 EST) Hold Hold 08/09/2020 13:45 EST [facility] Blood VENOUS BLOOD / Unknown Venipuncture / Unknown 08/09/2020 12:36 EST 08/09/2020 12:41 EST Christiano Quiroz MD LAB INFO SERVICE AND SUPPORT & PHONE RESULT Performing Organization Address [facility] Co de Phone Number [facility] [address] [place] [address] * HOLD BLUE TOP (08/09/2020 12:36 EST) Hold Hold 08/09/2020 13:45 EST [facility] Blood VENOUS BLOOD / Unknown Venipuncture / Unknown 08/09/2020 12:36 EST 08/09/2020 12:41 EST Christiano Quiroz MD LAB INFO SERVICE AND SUPPORT & PHONE RESULT Performing Organization Address [facility] de Phone Number [facility] [address] [place] [address] documented in this encounter Visit Diagnoses Diagnosis Paresthesia- Primary Disturbance of skin sensation Speech disturbance, unspecified type documented in this encounter Active and Recently Administered Medications Times are shown in EST. Scheduled Medication Order 08/07/2020 08/08/2020 08/09/2020 ketOROLAC (TORADOL) injection 15 mg 15 mg, intravenous, NOW X1, 1 dose, On 08/09/20 at 1430, STAT 1430 (Canceled Entry - Provider: Batch Job User Admin - Comment: Automatically canceled at discontinue of medication order) documented in this encounter Orders Medications Ordered That Anjum ht Not Have Been Administered Count Last Ordered Date First Ordered Date ketOROLAC (TORADOL) injection 15 mg 1 08/09 documented in this encounter Care Teams Employment Supervisor Relationship Specialty Start Date End Date [facility] [address] [place] [id number] PCP - General 08/09/20 documented as of this encounter
--- OUTSIDE RECORDS SUMMARY | 2024-01-09 10:58 | XMS_ITS | Encounter Summary ---
Author Organization [facility] Address [address] [place] [address] Care Team Providers Care Co Chairman Name Role Phone [facility] Primary C are Provider Encounter Details Date Type Department Care Team (Late st Contact Info) Description 12/02/2020 Lab Requisition [facility] Pathology & Laboratory Medicine - [address] [id number] Outr Resulting Lab, Provider Social History Tobacco Use Types Packs/Day Years [...] on file documented as of this encounter Functional Status Functional Status Response [...] Yes 12/11/2019 documented as of this encounter Plan of Treatment Upcoming Encounters Date Type Department Care Team (Late st Contact Info) Description 06/04/2024 13:30 EST Office Visit [facility] Adult Neurology - Main [place] [address] [place] [address] Clark Hall DO [address] [place] [address] documented as of this encounter Procedures Procedure Name Priority Date/Time Associated Diagnosis Comments GIARDIA AND CRYPTOSPORIDIUM ANTIGENS Routine 12/02/2020 10:35 EDT documented in this encounter Results * (ABNORMAL) GIARDIA AND CRYPTOSPORIDIUM ANTIGENS (12/02/2020 10:35 EDT) Giardia and Cryptosporidium Cryptosporidium Antigen Neg and Giardia Antigen Pos(A) Cryptosporidium Antigen Neg and Giardia Antigen Neg 10:10 EDT [facility] Feces SPECIMEN FROM RECTUM / Unknown 12/02/2020 10:35 EDT 12/02/2020 20:48 EDT Provider Outr Resulting Lab MICROBIOLOGY - GENERAL ORDERABLES [facility] [address] [place] [address] documented in this encounter Visit Diagnoses Not on filedocumented in this encounter Care Teams Co Chairman Relationship Specialty Start Date End Date [facility] [address] [place] [id number] PCP - General 08/09/20 documented as of this encounter
--- OUTSIDE RECORDS SUMMARY | 2024-01-09 10:58 | XMS_ITS | Encounter Summary ---
Author Organization [facility] Address [address] [place] [address] Care Team Providers Care Residential Monitor Name Role Phone Segundo Alfaro MD Primary Care Provider [phone] Reason for Visit * Reason Comments Telemedicine Video Visit Pain in unspeci fied joint * Referral (Routine) - Receiving Office to Obtain Authorization Specialty Diagnoses / Procedures Referred By Evert murillo Referred To Contact Rheumatology Diagnoses Pain in unspecified joint Cassy Lorenzana, QUINCY [address] [place] [address] [place] [address] [place] [id number] Referral ID Status Reason Start Date Expiration Date Visits Requested Visits Authorized [id number] Receiving Office to Obtain Authorization 1 1 Encounter Details Date Type Department Care Team (Late st Contact Info) Description 12/11/2019 14:40 EDT Telemedicine [facility] Center Rheumatology & Immunology - [address] [id number] Jf Live MD [address] [place] [address], [address] [place] [address] Fibromyalgia (Primary Dx); Generalized body aches; Malaise and fatigue; Sleep disturbance; Rotator cuff syndrome of left shoulder Social History Tobacco Use Types Packs/Day Years Used Date Smoking Tobacco: Former Cigarettes 0 06/2009 - 05/2010 Smokeless Tobacco: Never Comments:only smoked for a f ew months in college, when smokin cigarette every few days Alcohol Use Standard Drinks/Week Comments No 0 (1 standard drink = 0.6 oz pur e alcohol) Sex and Gender Information Value Date Recorded [...] Yes 12/11/2019 documented as of this encounter Patient Instructions * Patient Instructions* Jf Live MD - 12/11/2019 14:40 EDT I do not see any evidence of any inflammatory arthritis or systemic autoimmune disorders at this time. Your current generalized aches are from fibromyalgia and they appear to be triggered by your sleep disturbance. Additionally you also possibly have rotator cuff strain and bursitis affecting your left shoulder and ligamentous injury at your knees. Work on sleep improvement. Continue therapy to help with your nighttime anxiety. Use topical analgesics over sites of pain just before bed. See if it would be possible to obtain a few hours of sleep during the day if unable to get a continuous period of sleep at night because of childcare. Continue physical therapy for your left shoulder. If left shoulder pain symptoms increase, you could benefit from a cortisone injection to your left shoulder. If shoulder symptoms get worse, let us know and we could have you come in for the injection then. documented in this encounter Progress Notes * Freedom Phipps MA - 12/11/2019 1440 EDT REVIEW OF SYSTEMS: Yes No Yes No Fever X Joint pain X Weight gain or loss pounds (lbs) Duration of AM joint stiffness All day Eye pain or dryness X Numbness/tingling X Mouth or nose sores X Heart burn / Nausea X Chest pain X Diarrhea X Shortness of Breath X Blood in stool X Cough X Burning on urination X Skin rash X Hand/Foot color change in cold X Are our immunization records accurate per patient report? (i.e. influenza, pneumococcal, shingles) Yes No If no, note change(s) below and update record no * Jf Live MD - 12/11/2019 1440 EDT DIVISION OF RHEUMATOLOGY AND CLINICAL IMMUNOLOGY TELEMEDICINE (VIDEO) CONSULT NOTE Date of Service: 12/11/2019 Patient seen in consultation at the request of Cassy Lorenzana PA for rheumatologic evaluationfor generalized aches. Chief Complaint Patient presents with ??? Telemedicine Video Visit Pain in unspecified joint HISTORY OF PRESENT ILLNESS: Ms. Paige Caputo is a 29 y.o. female patient who is being evaluated today for generalized aches. This visit is being performed by televideo in lieu of an in-person visit because of the current pandemic and she provided verbal consent for this form of evaluation. She complains of generalized aches for the past 3 to 4 years. Both her joints and muscles are involved. She denies any associated muscle weakness. Her knee aches preceded these generalized aches and have been present since around 2004. The knee aches are usually worse with activities and at the endof the day. These are also worse when she has her knees bent. They are not associated with any swelling, redness or warmth and she also denies any preceding injuries to her knees. Her left shoulder pain is most prominent at this time and has been present for the past few months. She mentions that she is doing physical therapy for her left shoulder pain. No preceding injury to the shoulder either.No peripheral joint swelling, redness or warmth at any of her other joints too. Morning stiffness is very minimal. Her sleep is disturbed because of these generalized aches, nighttime anxiety and having to wake up frequently to take care of her 3 children at night. She mentions that she is seeing atherapist for the same and is making progress. She also reports that she uses CBD oil intermittently for the symptoms. She does not feel rested when she wakes up in the morning and is fatigued duringthe day. She mentions that she has tried various treatments including Lyrica, Cymbalta, amitriptyline, Flexeril, Prozac and many more treatments and did not tolerate those medications. The medications gabapentin, nortriptyline and Savella do not sound familiar to her and she may not have tried these medications. She denies any skin rashes, skin photosensitivity, skin psoriasis, oral ulcerations, lymphadenopathy, fevers, chills, weight changes, dyspnea, chest pains, palpitations, dysuria, hematuria, uveitis history or raynaud's phenomenon. She reports intermittent abdominal cramps and diarrhea and attributes this to her history of IBS. She also reports chronic cough and chest wall discomfort and attributes these to postnasal drip and costochondritis. ROS: As documented by Nurses/MA???s during this visit and reviewed by me. PMH PSH Past Medical History: Diagnosis Date ??? Anemia Past Surgical History: Procedure Laterality Date ??? CHOLECYSTECTOMY, LAPAROSCOPIC 2010 ALLERGIES Allergies Allergen Reactions ??? Latex Pt reports burning feeling, redness, discomfort ??? Sulfa (Sulfonamide Antibiotics) ??? Sulfasalazine Pt reports did not help with pain, made it hard to think, made brain feel like it was being eletrocuted SOCIAL HISTORY FAMILY HISTORY Social History Tobacco Use ??? Smoking status: Former Smoker Types: Cigarettes Start date: 2009 Last attempt to quit: 2010 Years since quittin.4 ??? Smokeless tobacco: Never Used ??? Tobacco comment: only smoked for a few months in college, when smokin cigarette every few days Substance Use Topics ??? Alcohol use: No No family history on file. MEDICATIONS: Medications Prior to Today's Visit Medication Sig ??? albuterol (VENTOLIN HFA) 90 mcg/actuation inhaler Inhale 2 Puffs as directed 4 times daily as needed. ??? budesonide-formoterol HFA (SYMBICORT) 80-4.5 mcg/actuation HFA aerosol inhaler inhaler Inhale 2Puffs as directed 2 times daily. ??? docusate sodium (COLACE) 100 mg capsule Take 1 Cap by mouth 2 times daily. (Patient not taking:Reported on 12/11/2019) ??? fluticasone propionate (FLONASE) 50 mcg/actuation nasal spray Instill 1 [place] into both nostrils daily. ??? MULTIVITAMIN ORAL Take by mouth daily. ??? pediatric multivitamin (ERICKA CHEW VIT) chewable tablet Take 1 Tab by mouth daily. ??? PEG 3350-Electrolytes (MIRALAX) 17 gram packet Take 17 g by mouth daily. (Patient not taking: Reported on 12/11/2019) No facility-administered medications prior to visit. OBJECTIVE: unknown if currently . General: No acute distress. Alert, oriented, pleasant, conversant. HEENT: Appears grossly normal Extremities: Upper extremities without cyanosis Skin: No rashes or lesions Musculoskeletal: No synovitis or effusion. Labs: Lab Results Component Value Date HGB 13.4 01/14/2018 MCV 79.6 01/14/2018 PLT 143 (L) 01/14/2018 No results found for: BUN, CREATININE, AST, ALT No results found for: SEDRATE, CRP Lab Results Component Value Date RF 11.0 07/11/2019 DONNELL Negative 07/11/2019 Imaging: IMPRESSION / PLAN: Ms. Paige Caputo is a 29 y.o. female patient with generalized aches, fatigue and sleep disturbance. She was reassured that I do not see any evidence of any inflammatory arthropathies, inflammatory myopathies or any systemic autoimmune disorders at this time. Her recent serologies including DONNELL and rheumatoid factor were normal. Her generalized aches appear to be from fibromyalgia and these are pro bably triggered by her sleep disturbance. Her chronic knee aches are probably from mechanical injuries. She will require an in person evaluation to determine the same. These however do not appear to be from an inflammatory cause. Her left shoulder pain appears to be from rotator cuff syndrome with bursitis. She was advised to work on sleep improvement. She will continue with therapy to help with her nighttime anxiety. She was also advised to use topical analgesics at sites of pain prior to bed to see ifthis would help improve quality of her sleep. She was also advised to try to obtain few hours of sleep during the day if unable to get continuous hours of sleep at night. She appeared hesitant to tryany medications at this time but a trial of agents like gabapentin, nortriptyline or Savella could be considered in the future if she is willing to do so. She was advised to continue physical therapy exercises for her left shoulder pain. If her shoulder pain gets worse, she could let us know and we could have her come in for a cortisone injection to her shoulder then. PATIENT INSTRUCTIONS: Patient Instructions I do not see any evidence of any inflammatory arthritis or systemic autoimmune disorders at this time. Your current generalized aches are from fibromyalgia and they appear to be triggered by your sleep disturbance. Additionally you also possibly have rotator cuff strain and bursitis affecting your left shoulder and ligamentous injury at your knees. Work on sleep improvement. Continue therapy to help with your nighttime anxiety. Use topical analgesics over sites of pain just before bed. See if it would be possible to obtain a few hours of sleep during the day if unable to get a continuous period of sleep at night because of childcare. Continue physical therapy for your left shoulder. If left shoulder pain symptoms increase, you could benefit from a cortisone injection to your left shoulder. If shoulder symptoms get worse, let us know and we could have you come in for the injection then. Today's visit was provided through telemedicine video conferencing: The patient consented to this form of evaluation. The location of the patient : car The location of the provider: Remote Follow-up in clinic as needed. Patient verbalizes understanding and agrees with plan. There are no barriers to understanding/learning. Jf Live MD 12/11/2019 Please note: Parts of this documentation was created using voice recognition software. Cook Helper Fruit errors may be present. documented in this encounter Plan of Treatment Upcoming Encounters Date Type Department Care Team (Late st Contact Info) Description 06/04/2024 13:30 EST Office Visit [facility] Adult Neurology - [facility] [address] [place] [address] Clark Hall DO [address] [place], [place] [address] documented as of this encounter Visit Diagnoses Diagnosis Fibromyalgia- Primary Mylagia and myositis, unspecified Generalized body aches Malaise and fatigue Other malaise and fatigue Sleep disturbance Sleep disturbance, unspecified Rotator cuff syndrome of left shoulder Disorders of bursae and tendons in shoulder region, unspecified documented in this encounter Historical Medications * This list may reflect changes made after this encounter. Medication Sig Dispensed Refills Start Date End Date fluticasone propionate (FLONASE) 50 mcg/actuation nasal spray Instill 1 [place] into both nostrils daily. 10/15/2018 albuterol (VENTOLIN HFA) 90 mcg/actuation inhaler Inhale 2 Puffs as directed 4 times daily as needed. budesonide-formoterol HFA (SYMBICORT) 80-4.5 mcg/actuation HFA aerosol inhaler inhaler Inhale 2 Puffs as directed 2 times daily. MULTIVITAMIN ORAL Take by mouth daily. added in this encounter Care Teams Residential Monitor Relationship Specialty Start Date End Date Segundo Alfaro MD [address] [place] [phone] PCP - General 12/19/11 08/08/20 documented as of this encounter
--- OUTSIDE RECORDS SUMMARY | 2024-01-09 10:58 | XMS_ITS | Encounter Summary ---
Author Organization [facility] Address [address] [place] [address] Care Team Providers Care Wing Mailer Machine Operator Name Role Phone Segundo Alfaro MD Primary Care Provider [phone] Reason for Visit * Reason Onset Date Comments Appointment Related 11/21/2019 Encounter Details Date Type Department Care Team (Late st Contact Info) Description 11/21/[address] 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 Please call. documented in this encounter Plan of Treatment Upcoming Encounters Date Type Department Care Team (Late st Contact Info) Description 06/04/2024 13:30 EST Office Visit [facility] Adult Neurology - [facility] [address] [place], [place] [address] Clark Hall DO [address] [place], [place] [address] documented as of this encounter Visit Diagnoses Not on filedocumented in this encounter Care Teams Wing Mailer Machine Operator Relationship Specialty Start Date End Date Segundo Alfaro MD [address] [place] [phone] PCP - General 12/19/11 08/08/20 documented as of this encounter
--- OUTSIDE RECORDS SUMMARY | 2024-01-09 10:58 | XMS_ITS | Encounter Summary ---
Author Organization [facility] Address [address] [place] [address] Care Team Providers Care Associate Professor Of Library Science Name Role Phone Segundo Alfaro MD Primary Care Provider [phone] [facility] Family Medicine Primary C are Provider Encounter Details Date Type Department Care Team (Late Contact Info) Description 07/11/2019 Lab Requisition [facility] Pathology & Laboratory Medicine [address] [address] Unknown, Provider, Social History Tobacco Use Types Packs/Day Years [...] 06/04/2024 13:30 EST Office Visit [facility] Adult Neurology - [address] [address] Clark Hall DO [address] [place] [address] documented as of this encounter Procedures Procedure Name Priority Date/Time Associated Diagnosis Comments ANTI NUCLEAR AB (DONNELL), IFA Routine 07/11/2019 8:34 EST documented in this encounter Results * ANTI NUCLEAR AB (DONNELL), IFA (07/11/2019 8:34 EST) DONNELL Interpretation Negative Negative 2019 14:56 EST [facility] Blood VENOUS BLOOD / Unknown 07/11/2019 8:34 EST 07/11/2019 20:59 EST Narrative [facility] - 07/14/2019 14:56 EST Results were obtained with the [employer] NOVA Lite HEp-2 DONNELL Kit by indirect immunofluorescence. Provider Unknown IMMUNOLOGY AND SEROL AGUSTINA ORDERABLES Performing Organization Address City/State/[facility] Co de Phone Number [facility] [address] [place] [address] documented in this encounter Visit Diagnoses Not on filedocumented in this encounter Care Teams Associate Professor Of Library Science Relationship Specialty Start Date End Date Segundo Alfaro MD [address] [place] [phone] PCP - General 12/19/11 08/08/[address] [address] PCP - General 08/09/20 documented as of this encounter
--- OUTSIDE RECORDS SUMMARY | 2024-01-09 10:58 | XMS_ITS | Encounter Summary ---
Author Organization [facility] Address [address] [place] [address] Care Team Providers Care Scabbler Name Role Phone Bettye [facility] Family Medicine Primary C are Provider Encounter Details Date Type Department Care Team (Late st Contact Info) Description 10/09/2023 Lab Requisition [facility] Pathology & Laboratory Medicine - [address] [address] Outr Resulting Lab, Provider Social History Tobacco [...] Info) Description 06/04/2024 13:30 EST Office Visit [facility] Adult Neurology - Main [place] [address] [place] [address] Clark Hall DO [address] [place] [address] documented as of this encounter Procedures Procedure Name Priority Date/Time Associated Diagnosis Comments CHLAMYDIA/N. GONORRHOEAE AMPLIFIED NUCLEIC ACID Routine 10/09/2023 10:41 EDT documented in this encounter Results * CHLAMYDIA/N. GONORRHOEAE AMPLIFIED RNA (10/09/2023 10:41 EDT) Neisseria gonorrhoeae Result Negative Negative 10/10/2023 13:58 EDT [facility] Chlamydia trachomatis Result Negative Negative 10/10/2023 13:58 EDT [facility] Swab VAGINAL STRUCTURE / Unknown 10/09/2023 10:41 EDT 10/09/2023 22:11 EDT Provider Outr Resulting Lab MICROBIOLOGY - GENERAL ORDERABLES [facility] [address] [place], [place] [address] documented in this encounter Visit Diagnoses Not on filedocumented in this encounter Care Teams Scabbler Relationship Specialty Start Date End Date [facility] [address] [place] [address] PCP - General 08/09/20 documented as of this encounter
--- OUTSIDE RECORDS SUMMARY | 2024-01-09 10:58 | XMS_ITS | Encounter Summary ---
Author Organization [facility] Address [address] [place] [address] Care Team Providers Care Yard Inspector Name Role Phone Segundo Alfaro MD Primary Care Provider [phone] [facility] Family Medicine Primary C are Provider Encounter Details Date Type Department Care Team (Late st Contact Info) Description 08/05/2020 Lab Requisition [facility] Pathology & Laboratory Medicine - [facility] [address] [place], [place] [phone] Outr Resulting Lab, Provider Social History Tobacco [...] [facility] Adult Neurology - Main [place] [address] [place] [address] Clark Hall DO [address] [place] [address] documented as of this encounter Procedures Procedure Name Priority Date/Time Associated Diagnosis Comments LYME AB Routine 08/05/2020 12:05 EST documented in this encounter Results * LYME AB (08/05/2020 12:05 EST) Lyme Ab Negative Negative 08/06/2020 10:55 EST [facility] Comment:New 3rd generation a ssay in use 11/26/2019 Blood VENOUS BLOOD / Unknown 08/05/2020 12:05 EST 08/05/2020 20:21 EST Provider Outr Resulting Lab IMMUNOLOGY A ND SEROLOGY ORDERABLES [facility] [address] [place] [address] documented in this encounter Visit Diagnoses Not on filedocumented in this encounter Care Teams Yard Inspector Relationship Specialty Start Date End Date Segundo Alfaro MD [address] [place] [phone] PCP - General 12/19/11 08/08/[address] [address] PCP - General 08/09/20 documented as of this encounter
--- OUTSIDE RECORDS SUMMARY | 2024-01-09 10:58 | XMS_ITS | Encounter Summary ---
Author Organization [facility] Address [address] [place] [address] Care Team Providers Care Sander Machine Name Role Phone Bettye [facility] Family Medicine Primary C are Provider Encounter Details Date Type Department Care Team (Late st Contact Info) Description 02/28/2023 Lab Requisition [facility] Pathology & Laboratory Medicine - [address] [address] Outr Resulting Lab, Provider Social History Tobacco [...] 06/04/2024 13:30 EST Office Visit [facility] Adult Neurology - Main [place] [address] [place] [address] Clark Hall DO [address] [place] [address] documented as of this encounter Procedures Procedure Name Priority Date/Time Associated Diagnosis Comments SYPHILIS SEROLOGY Routine 02/27/2023 16: 30 EDT HEPATITIS C AB W REFLEX TO HCV RNA BY PCR Routine 02/27/2023 16:30 EDT documented in this encounter Results * SYPHILIS SEROLOGY (02/27/2023 16:30 EDT) Syphilis Serology Negative Negative 03/01/2023 11:27 EDT [facility] Blood VENOUS BLOOD / Unknown 02/27/2023 16:30 EDT 02/28/2023 17:13 EDT Provider Outr Resulting Lab IMMUNOLOGY A ND SEROLOGY ORDERABLES Performing Organization Address City/[facility]/ZIP Co de Phone Number [facility] [address] [place] [address] * HEPATITIS C AB W REFLEX TO HCV RNA BY PCR (02/27/2023 16:30 EDT) Hep C Antibody Negative Negative 03/01/2023 10:24 EDT [facility] Blood VENOUS BLOOD / Unknown 02/27/2023 16:30 EDT 02/28/2023 17:13 EDT Provider Outr Resulting Lab CHEMISTRY & BLOOD GAS ORDERABLES Performing Organization Address City/[facility]/ZIP Co de Phone Number [facility] [address] [place] [address] documented in this encounter Visit Diagnoses Not on filedocumented in this encounter Care Teams Sander Machine Relationship Specialty Start Date End Date Bettye [facility] [place] [address] PCP - General 08/09/20 documented as of this encounter
--- OUTSIDE RECORDS SUMMARY | 2024-01-09 10:58 | XMS_ITS | Encounter Summary ---
Author Organization [facility] Address [address] [place] [address] Care Team Providers Care Email Marketing Processor Name Role Phone Bettye [facility] Family Medicine Primary C are Provider Encounter Details Date Type Department Care Team (Late st Contact Info) Description 01/09/2023 Lab Requisition [facility] Pathology & Laboratory Medicine - [address] [address] Outr Resulting Lab, Provider Social History Tobacco [...] Info) Description 06/04/2024 13:30 EST Office Visit [facility] Adult Neurology - Main [place] [address] [place] [address] Clark Hall DO [address] [place] [address] documented as of this encounter Procedures Procedure Name Priority Date/Time Associated Diagnosis Comments CHLAMYDIA/N. GONORRHOEAE AMPLIFIED NUCLEIC ACID Routine 01/08/2023 14:36 EDT documented in this encounter Results * CHLAMYDIA/N. GONORRHOEAE AMPLIFIED RNA (01/08/2023 14:36 EDT) Neisseria gonorrhoeae Result Negative Negative 01/10/2023 12:52 EDT [facility] Chlamydia trachomatis Result Negative Negative 01/10/2023 12:52 EDT [facility] Swab ENTIRE VAGINA / Unknown 01/08/2023 14:36 EDT 01/09/2023 17:26 EDT Provider Outr Resulting Lab MICROBIOLOGY - GENERAL ORDERABLES [facility] [address] [place] [address] documented in this encounter Visit Diagnoses Not on filedocumented in this encounter Care Teams Email Marketing Processor Relationship Specialty Start Date End Date [facility] [address] [place] [address] PCP - General 08/09/20 documented as of this encounter
--- OUTSIDE RECORDS SUMMARY | 2024-01-09 10:58 | XMS_ITS | Encounter Summary ---
Author Organization [facility] Address [address] [place] [address] Care Team Providers Care Clerical Aide Teacher Name Role Phone Segundo Alfaro MD Primary Care Provider [phone] Encounter Details Date Type Department Care Team (Latest Contact Info) Description 08/05/2020 - 08/05/2020 23:59 EST Hospital Encounter [facility] Secondary Reads [place] Discharge Disposition: Home or Self Care Social [...] Yes 12/11/2019 documented as of this encounter Medications at Time of Discharge [...] (FLONASE) 50 mcg/actuation nasal spray Instill 1 Rodeo into both nostrils daily. 10/15/2018 MULTIVITAMIN ORAL Take by mouth daily. pediatric multivitamin (ERICKA CHEW VIT) chewable tablet Take 1 Tab by mouth daily. PEG 3350-Electrolytes (MIRALAX) 17 gram packet Take 17 g by mouth daily. 30 Each 3 06/18/2012 documented as of this encounter Discharge Disposition Disposition Code Departure Means Destination Home or Self Care documented in this encounter Plan of Treatment Upcoming Encounters Date Type Department Care Team (Late st Contact Info) Description 06/04/2024 13:30 EST Office Visit [facility] Adult Neurology - [facility] [address], [place] [id number] Clark Hall DO [address] [place] [address] documented as of this encounter Procedures Procedure Name Priority Date/Time Associated Diagnosis Comments MR OUTSIDE IMAGES NEURO Routine 08/09/2020 15:42 EST documented in this encounter Results * MR OUTSIDE IMAGES NEURO (08/09/2020 15:42 EST) Narrative 08/09/2020 15:42 EST This is a non-reportable exam. Provider Unknown MD KELLY OTHER IMAGING OR DERABLES documented in this encounter Visit Diagnoses Not on filedocumented in this encounter Care Teams Clerical Aide Teacher Relationship Specialty Start Date End Date Segundo Alfaro MD [address] [place] [id number] PCP - General 12/19/11 08/08/20 documented as of this encounter
--- OUTSIDE RECORDS SUMMARY | 2024-01-09 10:58 | XMS_ITS | Encounter Summary ---
Author Organization [facility] Address [address] [place] [address] Care Team Providers Care Syrup Mixer Assistant Name Role Phone Segundo Alfaro MD Primary Care Provider Encounter Details Date Type Department Care Team (Late st Contact Info) Description 12/15/2011 Results Only [facility] [phone] Maria Queen, TRAUMA COORDINATOR [address] [place] [phone] Social History Tobacco Use Types Packs/Day Years Used Date Smoking Tobacco: Never Assessed Sex and Gender Information Value Date Recorded Sex Assigned at Not on file Gender Identity Female 08/09/2020 12:13 EST Sexual Orientation Not on file documented as of this encounter Plan of Treatment Upcoming Encounters Date Type Department Care Team (Late Contact Info) Description 06/04/2024 13:30 EST Office Visit [facility] Adult Neurology - [facility] [address] [place] [address] Clark Hall DO [address] [place] [address] documented as of this encounter Procedures Procedure Name Priority Date/Time Associated Diagnosis Comments PAP TEST- RESULT ONLY Routine 12/15/2011 0:00 EDT documented in this encounter Results * PAP TEST- RESULT ONLY (12/15/2011 0:00 EDT) Pathology Report: CYTOPATHOLOGY REPORT Reports generated via electronic interface contain original data; however they are lacking the format of the original report. Caution should be taken when reading/interpreti ng unformatted reports. Name: ? PAIGE CAPUTO ? Accession #: ? [id number] : ? 1990 (Age: 21) ??F ?Collect Date: ? 12/15/2011 Location: ? [facility] ? Receive Date: ? 12/19/2011 Provider: ?MARIA QUEEN TECHNICAL TRAINER Copy to: ? Specimen/Source: ?Pap Test, Cervix/Endocervix, ThinPrep Imaging System with manual evaluation Last Menstrual Period: ? Hormonal/Contracep tive Status: ? Oral contraceptives ? SPECIMEN ADEQUACY ? Satisfactory for Evaluation - transformation zone component present GENERAL CATEGORIZATION ? Negative for Intraepithelial Lesion or Malignancy ? Document reviewed and electronically signed by: ? BRIGID Barboza(ASCP) ? Report Date: ??12/22/2011 14:01 End of Report [facility] 12/15/2011 12/19/2011 Maria Queen TRAUMA COORDINATOR PATHOLOGY ORDERABLES [facility] [address] [place] [address] documented in this encounter Visit Diagnoses Not on filedocumented in this encounter Care Teams Syrup Mixer Assistant Relationship Specialty Start Date End Date Seg[place] [address] PCP - General 12/19/11 08/08/20 documented as of this encounter
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
--- OUTSIDE RECORDS SUMMARY | 2024-01-09 10:58 | XMS_ITS | Encounter Summary ---
Author Organization [facility] Address [address] [place] [address] Care Team Providers Care Gizzard Puller Name Role Phone Segundo Alfaro MD Primary Care Provider [phone] Encounter Details Date Type Department Care Team (Latest Contact Info) Description 09/12/2019 Transcribe Orders Non [facility] Ancillary Services Cassy Lorenzana, PA-C [address] [place] [address] [id number] Health examination in population survey (Primary Dx) Social History Tobacco Use Types Packs/Day Years [...] Info) Description 06/04/2024 13:30 EST Office Visit [facility] Adult Neurology - [place] [address], [place] [id number] Clark Hall DO [address] [place], [place] [id number] documented as of this encounter Visit Diagnoses Diagnosis Health examination in population survey- Primary documented in this encounter Care Teams Gizzard Puller Relationship Specialty Start Date End Date Segundo [place]far[place] [address] PCP - General 12/19/11 08/08/20 documented as of this encounter
--- OUTSIDE RECORDS SUMMARY | 2024-01-09 10:58 | XMS_ITS | Encounter Summary ---
Author Organization [facility] Address [address] [place] [address] Care Team Providers Care Director Video Name Role Phone Segundo Alfaro MD Primary Care Provider [phone] Encounter Details Date Type Department Care Team (Latest Contact Info) Description 08/04/2020 Hospital Encounter [facility] Secondary Reads [place] Discharge Disposition: Home or [...] (FLONASE) 50 mcg/actuation nasal spray Instill 1 [place] into both nostrils daily. 10/15/2018 MULTIVITAMIN ORAL [...] Description 06/04/2024 13:30 EST Office Visit [facility] Adult Neurology - [facility] [address] [place] [address] Clark Hall DO [address] [place] [address] documented as of this encounter Procedures Procedure Name Priority Date/Time Associated Diagnosis Comments XR OUTSIDE IMAGES CHEST Routine 08/09/2020 15:38 EST documented in this encounter Results * XR OUTSIDE IMAGES CHEST (08/09/2020 15:38 EST) Narrative 08/09/2020 15:38 EST This is a non-reportable exam. Provider Unknown MD KELLY OTHER IMAGING OR DERABLES documented in this encounter Visit Diagnoses Not on filedocumented in this encounter Care Teams Director Video Relationship Specialty Start Date End Date Segundo Alfaro MD [address] [place] [address] PCP - General 12/19/11 08/08/20 documented as of this encounter
--- OUTSIDE RECORDS SUMMARY | 2024-01-09 10:58 | XMS_ITS | Encounter Summary ---
Author Organization [facility] Address [address] [place] [address] Care Team Providers Care Sinker Winder Name Role Phone Segundo Alfaro MD Primary Care Provider [phone] Encounter Details Date Type Department Care Team (Latest Contact Info) Description 08/04/2020 Hospital Encounter [facility] Secondary Reads [place] Discharge Disposition: Home [...] (FLONASE) 50 mcg/actuation nasal spray Instill 1 [place] into both nostrils daily. 10/15/2018 MULTIVITAMIN ORAL [...] Info) Description 06/04/2024 13:30 EST Office Visit [facility] Adult Neurology - [facility] [address] [place] [address] Clark Hall DO [address] [place], [place] [address] documented as of this encounter Procedures Procedure Name Priority Date/Time Associated Diagnosis Comments MR OUTSIDE IMAGES NEURO Routine 08/09/2020 15:41 EST documented in this encounter Results * MR OUTSIDE IMAGES NEURO (08/09/2020 15:41 EST) Narrative 08/09/2020 15:41 EST This is a non-reportable exam. Provider Unknown MD KELLY OTHER IMAGING OR DERABLES documented in this encounter Visit Diagnoses Not on filedocumented in this encounter Care Teams Sinker Winder Relationship Specialty Start Date End Date Segundo Alfaro MD [address] [place] [address] PCP - General 12/19/11 08/08/20 documented as of this encounter
--- OUTSIDE RECORDS SUMMARY | 2024-01-09 10:58 | XMS_ITS | Clinical Summary ---
Author Organization [facility] Address [address] [place] [address] Care Team Providers Care Field Broomer Name Role Phone Bettina [facility] Medicine Primary C are Provider Allergies Active Allergy Reactions Criticality Noted Date [...] (FLONASE) 50 mcg/actuation nasal spray Instill 1 [place] into both nostrils daily. 10/15/2018 Active Encounters Date Type Department Care Team Description 12/18/2023 Telephone [facility] [address] [address] Clark Hall DO Appointment Related from Last 3 Months Surgical History Surgery Date Site/Laterality Comments CHOLECYSTECTOMY, LAPAROSCOPIC 2010 Medical History Medical History Date Comments Anemia Family History Medical History Relation Comments Migraines Mother Relation Status Comments Mother Social History Tobacco Use Types Packs/Day Years [...] 12:13 EST Sexual Orientation Not on file Obstetrics History Para Term AB IAB SAB Ectopic Multiple Livin g Live Births 2 1 1 1 1 Date Outcome GA Total Labor Labor/2nd/3rd Weight Sex Type Anes PTL Binta A1 A5 Name Clin Comments:System Genera mali. Please review and update details. 010 Term 41w 0d 3969 g (8 lb 12 oz) M CS-LT ranv N Living Last Filed Vital Signs Vital Sign Reading [...] Body Mass Index 33.2 08/09/2020 1143 EST Plan of Treatment Upcoming Encounters Date Type Department Care Team (Late st Contact Info) Description 06/04/2024 13:30 EST Office Visit [facility] [address] [address] Clark Hall DO [address] [place] [address] Health Maintenance Due Date Last Done Comments Hepatitis B Vaccine (1 of 3 - 19+ 3-dose series) 2007 COVID-19 Vaccine (2022-24 season) 2023 Hepatitis C Screen Completed 02/27/2023, 01/14/2018 Procedures Procedure Name Priority Date/Time Associated Diagnosis Comments HEPATITIS C AB W REFLEX TO HCV RNA BY PCR Routine 02/27/2023 16:30 EDT from Last 3 Months or Most Recently Relevant to Health Maintenance Results * HEPATITIS C AB W REFLEX TO HCV RNA BY PCR (02/27/2023 16:30 EDT) Hep C Antibody Negative Negative 03/01/2023 10:24 EDT [facility] Blood VENOUS BLOOD / Unknown 02/27/2023 16:30 EDT 02/28/2023 17:13 EDT Provider Outr Resulting Lab CHEMISTRY & BLOOD GAS ORDERABLES [facility] [address] [place] [address] from Last 3 Months or Most Recently Relevant to Health Maintenance Care Teams Field Broomer Relationship Specialty Start Date End Date [facility] [address] [place] [address] PCP - General 08/09/20
--- OUTSIDE RECORDS SUMMARY | 2024-01-09 10:58 | XMS_ITS | Encounter Summary ---
Author Organization [facility] Address [address] [place] [address] Care Team Providers Care Medical Registrar Name Role Phone Segundo Alfaro MD Primary Care Provider [phone] [facility] Family Medicine Primary C are Provider Encounter Details Date Type Department Care Team (Late st Contact Info) Description 05/12/2020 Lab Requisition [facility] Pathology & Laboratory Medicine - [facility] [address] [place], [place] [phone] Outr Resulting Lab, Provider Social History Tobacco [...] Info) Description 06/04/2024 13:30 EST Office Visit [facility] Adult Neurology - [facility] [address] [place], [place] [address] Clark Hall DO [address] [place], [place] [address] documented as of this encounter Visit Diagnoses Not on filedocumented in this encounter Care Teams Medical Registrar Relationship Specialty Start Date End Date Segundo Alfaro MD [address] [place] [phone] PCP - General 12/19/11 08/08/[address] [address] PCP - General 08/09/20 documented as of this encounter
--- OUTSIDE RECORDS SUMMARY | 2024-01-09 10:58 | XMS_ITS | Encounter Summary ---
Author Organization [facility] Address [address] [place] [address] Care Team Providers Care Machine Featheredger And Reducer Name Role Phone Bettye [facility] Family Medicine Primary C are Provider Encounter Details Date Type Department Care Team (Late st Contact Info) Description 02/28/2023 Lab Requisition [facility] Pathology & Laboratory Medicine - [address] [address] Outr Resulting Lab, Provider Social History Tobacco [...] Info) Description 06/04/2024 13:30 EST Office Visit [facility] Adult Neurology - Main [place] [address] [place] [address] Clark Hall DO [address] [place] [address] documented as of this encounter Procedures Procedure Name Priority Date/Time Associated Diagnosis Comments CHLAMYDIA/N. GONORRHOEAE AMPLIFIED NUCLEIC ACID Routine 02/27/2023 16:30 EDT documented in this encounter Results * CHLAMYDIA/N. GONORRHOEAE AMPLIFIED RNA (02/27/2023 16:30 EDT) Neisseria gonorrhoeae Result Negative Negative 03/01/2023 13:24 EDT [facility] Chlamydia trachomatis Result Negative Negative 03/01/2023 13:24 EDT [facility] Swab VAGINAL STRUCTURE / Unknown 02/27/2023 16:30 EDT 02/28/2023 22:45 EDT Provider Outr Resulting Lab MICROBIOLOGY - GENERAL ORDERABLES [facility] [address] [place] [address] documented in this encounter Visit Diagnoses Not on filedocumented in this encounter Care Teams Machine Featheredger And Reducer Relationship Specialty Start Date End Date [facility] [address] [place] [address] PCP - General 08/09/20 documented as of this encounter
--- OUTSIDE RECORDS SUMMARY | 2024-01-09 10:58 | XMS_ITS | Encounter Summary ---
Author Organization [facility] Address [address] [place] [address] Care Team Providers Care Oil Producer Name Role Phone Bettye [facility] Medicine Primary C are Provider Encounter Details Date Type Department Care Team (Latest Contact Info) Description 08/09/2020 Travel Social History Tobacco Use Types Packs/Day Years [...] 11:44 EST documented as of this encounter Functional Status [...] Info) Description 06/04/2024 13:30 EST Office Visit [facility] Adult Neurology - [facility] [address] [place], [place] [address] Clark Hall DO [address] [place], [place] [address] documented as of this encounter Visit Diagnoses Not on filedocumented in this encounter Care Teams Oil Producer Relationship Specialty Start Date End Date [facility] [address] [place] [address] PCP - General 08/09/20 documented as of this encounter
--- OUTSIDE RECORDS SUMMARY | 2024-01-09 10:58 | XMS_ITS | Encounter Summary ---
Author Organization [facility] Address [address] [place] [address] Care Team Providers Care City Magistrate Name Role Phone Segundo Alfaro MD Primary Care Provider [phone] Encounter Details Date Type Department Care Team (Late Contact Info) Description 01/14/2018 Historical Results Only [facility] Lab - Main [address] [address] [place] [address] [facility] [address] [place] [address] Social History Tobacco Use Types Packs/Day Years [...] 06/04/2024 13:30 EST Office Visit [facility] Adult Neurology - Main [place] [address] [place], [place] [address] Clark Hall DO [address] [place], [place] [address] documented as of this encounter Procedures Procedure Name Priority Date/Time Associated Diagnosis Comments HEPATITIS C AB W REFLEX TO HCV RNA BY PCR Routine 01/14/2018 12:00 EDT FOLATE Routine 01/14/2018 12:00 EDT VITAMIN B12 Routine 01/14/2018 12:00 EDT CBC W/PLT & DIFF,POINT OF CARE - [facility] Routine 01/14/2018 11:57 EDT documented in this encounter Results * (ABNORMAL) FOLATE (01/14/2018 12:00 EDT) [facility] FOLIC ACID [facility] >20.00(H) 2.76- >20.0 ng/mL 01/14/2018 20:07 EDT [facility] Comment: The results of this assay can be falsely elevated due to the consumption of Biotin. 01/14/2018 12:0 0 EDT 01/14/2018 17:52 EDT Gordon Willoughby MD CHEMISTRY & BLOOD GA S ORDERABLES [facility] * VITAMIN B12 (01/14/2018 12:00 EDT) [facility] VITAMIN B12 [facility] 569 239 - 931 pg/mL 01/14/2018 20:01 EDT [facility] Comment: The results of this assay can be falsely elevated due to the consumption of Biotin. 01/14/2018 12:0 0 EDT 01/14/2018 17:52 EDT Gordon Willoughby MD CHEMISTRY & BLOOD GA S ORDERABLES [facility] * HEPATITIS C AB W REFLEX TO HCV RNA BY PCR (01/14/2018 12:00 EDT) [facility] HEPATITIS C AB W/REFLEX - [facility] Negative 01/14/2018 19:44 EDT [facility] Comment:Expected Values: Neg ative. 01/14/2018 12:0 0 EDT 01/14/2018 17:52 EDT Gordon Willoughby MD CHEMISTRY & BLOOD GA S ORDERABLES [facility] * (ABNORMAL) CBC W/PLT & DIFF,POINT OF CARE - [facility] (01/14/2018 11:57 EDT) ABSOLUTE NEUTROPHIL COUN - [facility] 4.9 1.7 - 7.0 10e3/uL 01/14/2018 15:25 EDT [facility] BASO # - [facility] 0.03 0.0 - 0.3 10e3/uL 01/14/2018 15:[facility] BASO % - [facility] 0 0 - 2 % 01/14/2018 15:25 [facility] EOS # - [facility] 0.18 0.05 - 0.5 10e3/uL 01/14/2018 15:25 [facility] EOS % - [facility] 3 0 - 5 % 01/14/2018 15:25 [facility] GRAN % - [facility] 72.8 40 - 80 % 01/14/2018 15:25 [facility] HEMATOCRIT - [facility] 40.9 34.0 - 47.0 % 01/14/2018 15:25 [facility] HEMOGLOBIN - [facility] 13.4 11.2 - 15.7 g/dl 01/14/2018 15:25 [facility] LYMPH # - [facility] 1.1 0.9 - 2.9 10e3/ul 01/14/2018 15:25 [facility] LYMPH% - [facility] 16.2(L) 20 - 40 % 01/14/2018 15:25 [facility] MEAN CORPUSCULAR HGB - [facility] 26.1 26 - 34 pg 01/14/2018 15:25 [facility] MEAN CORPUSCULAR HGB CONC - [facility] 32.8 31 - 36 g/dL 01/14/2018 15:25 [facility] MEAN CELL VOLUME - [facility] 79.6 77 - 100 fl 01/14/2018 15:25 [facility] MONO # - [facility] 0.5 0.3 - 0.9 10e3/uL 01/14/2018 15:25 EDT [facility] MONO% - [facility] 7.9 0 - 12 % 01/14/2018 15:25 [facility] PLATELET COUNT 143(L) 150 - 400 10e3/ul 01/14/2018 15:25 [facility] RED BLOOD COUNT - [facility] 5.14 3.8 - 5.2 10e6/ul 01/14/2018 15:25 [facility] RED CELL DISTRI WIDTH - [facility] 13.2 11.8 - 15.6 % 01/14/2018 15:25 [facility] WHITE BLOOD COUNT - [facility] 6.7 3.5 - 10.5 10e3/ul 01/14/2018 15:25 [facility] 01/14/2018 11:5 7 EDT 01/14/2018 11:57 EDT Gordon Willoughby MD CHEMISTRY & BLOOD GA S ORDERABLES [facility] documented in this encounter Visit Diagnoses Not on filedocumented in this encounter Care Teams City Magistrate Relationship Specialty Start Date End Date Segundo Alfaro MD [address] [place] [phone] PCP - General 12/19/11 08/08/20 documented as of this encounter
--- OUTSIDE RECORDS SUMMARY | 2024-01-09 10:58 | XMS_ITS | Encounter Summary ---
Author Organization [facility] Address [address] [place] [address] Care Team Providers Care Mill House Supervisor Name Role Phone Segundo Alfaro MD Primary Care Provider [phone] Encounter Details Date Type Department Care Team (Late st Contact Info) Description 08/19/2017 Historical Results Only [facility] Lab - Main [place] [address] [place], [place] [address] Camille Cooley NP [address] [facility] [address] [place], [place] [address] Social History Tobacco Use Types Packs/Day Years [...] Info) Description 06/04/2024 13:30 EST Office Visit [facility] Adult Neurology - Main [address] [address] Clark Hall DO [address] [place], [place] [address] documented as of this encounter Procedures Procedure Name Priority Date/Time Associated Diagnosis Comments GENITAL CULTURE - [facility] Routine 08/19/2017 21:15 EST documented in this encounter Results * GENITAL CULTURE - [facility] (08/19/2017 21:15 EST) Usual vaginal riley UVF 08/21/2017 12:40 EST [facility] QUANT - [facility] MODERATE 08/21/2017 12:40 EST [facility] 08/19/2017 21:1 5 EST 08/19/2017 21:15 EST Camille Cooley NP CHEMISTRY & BLOOD GAS ORDERABLES [facility] documented in this encounter Visit Diagnoses Not on filedocumented in this encounter Care Teams Mill House Supervisor Relationship Specialty Start Date End Date Segundo Alfaro MD [address] [place] [address] PCP - General 12/19/11 08/08/20 documented as of this encounter
--- OUTSIDE RECORDS SUMMARY | 2024-01-09 10:58 | XMS_ITS | Encounter Summary ---
Author Organization Health system Address [address] [place] [address] Care Team Providers Care Medical Voucher Clerk Name Role Phone Segundo Alfaro MD Primary Care Provider [phone] Encounter Details Date Type Department Care Team (Late st Contact Info) Description 02/09/2017 Historical Results Only [facility] Lab - Main [place] [address] [place], [place] [address] Camille Cooley NP [address] [facility] [address] [place], [place] [address] Social History Tobacco Use Types Packs/Day Years [...] Info) Description 06/04/2024 13:30 EST Office Visit [facility] Adult Neurology - Main [address] [address] Clark Hall DO [address] [place], [place] [address] documented as of this encounter Procedures Procedure Name Priority Date/Time Associated Diagnosis Comments BACTERIAL CULTURE, URINE Routine 02/09/2017 11:29 EDT documented in this encounter Results * BACTERIAL CULTURE, URINE (02/09/2017 11:29 EDT) USUAL UROGENITAL GIOVANNY - [facility] UUV 02/12/2017 7:44 EDT [facility] CitrateConcentration >100,000 CFU/ML 01/17 7:44 EDT [facility] Comment: ?* This is a corrected result. * ? A prior result that was reported as final has been changed. 02/09/2017 11:2 9 EDT 02/09/2017 14:19 EDT Comment:VOID Camille Cooley COLOR SHOP HELPER MICROBIOLO GY - GENERAL ORDERABLES [facility] documented in this encounter Visit Diagnoses Not on filedocumented in this encounter Care Teams Medical Voucher Clerk Relationship Specialty Start Date End Date Segundo Alfaro MD [address] [place] [phone] PCP - General 12/19/11 08/08/20 documented as of this encounter
--- OUTSIDE RECORDS SUMMARY | 2024-01-09 10:58 | XMS_ITS | Encounter Summary ---
Author Organization [facility] Address [address] [place] [address] Care Team Providers Care Heading Up Machine Operator Name Role Phone Bettina [facility] Family Medicine Primary C are Provider Encounter Details Date Type Department Care Team (Late st Contact Info) Description 02/28/2023 Lab Requisition [facility] Pathology & Laboratory Medicine - [address] [address] Outr Resulting Lab, Provider Social History Tobacco [...] Info) Description 06/04/2024 13:30 EST Office Visit [facility] Adult Neurology - Main [place] [address] [place] [address] Clark Hall DO [address] [place] [address] documented as of this encounter Procedures Procedure Name Priority Date/Time Associated Diagnosis Comments HIV 1/2 ANTIGEN AND ANTIBODY, 4TH GENERATION Routine 02/27/2023 16:30 EDT documented in this encounter Results * HIV 1/2 ANTIGEN AND ANTIBODY, 4TH GENERATION (02/27/2023 16:30 EDT) HIV 1 and 2 Antibody/p24 Antigen, 4th Generation Negative Negative 03/01/2023 10:04 EDT [facility] Comment:If acute HIV-1 infec tion is suspected in a high risk patient, submit plasma specimen for HIV-1 RNA quantitation test. Blood VENOUS BLOOD / Unknown 02/27/2023 16:30 EDT 02/28/2023 17:13 EDT Narrative [facility] - 03/01/2023 10:04 EDT Fourth Generation assay performed on the Siemens Centaur XPT. Provider Outr Resulting Lab IMMUNOLOGY A ND SEROLOGY ORDERABLES [facility] [address] [place] [address] documented in this encounter Visit Diagnoses Not on filedocumented in this encounter Care Teams Heading Up Machine Operator Relationship Specialty Start Date End Date [facility] [address] [facility] [place] [address] PCP - General 08/09/20 documented as of this encounter
--- OUTSIDE RECORDS SUMMARY | 2024-01-09 10:58 | XMS_ITS | Clinical Summary ---
Author Organization [facility] [place] [address] Care Team Providers Care Document Clerk Name Role Phone None Primary Care Provider Unavailabl e Allergies Active Allergy Reactions Criticality Noted Date Comments Latex Itching High 12/11/2019 Pt reports burning feeling, redness, discomfort Sulfa (Sulfonamide Antibiotics) Other (See Comments) High 06/17/2012 Sulfasalazine 12/11/2019 Pt reports did not help with pain, made it hard to think, made brain feel like it was being eletrocuted Medications Medication Sig Dispensed Refills Start Date End Date Status albuteroL 90 mcg/actuation HFA Aerosol Inhaler Inhale 2 puffs into the lungs 4 times daily as needed. Active budesonide-formoteroL (Sybmicort) 80-4.5 mcg/actuation HFA Aerosol Inhaler Inhale 2 puffs into the lungs Twice daily. Active cyclobenzaprine (Flexeril) 10 mg Tablet Take by mouth. 08/04/2020 Active venlafaxine XR (Effexor-XR) 37.5 mg Capsule, Sust. 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 03/31/2021 Migraine headache without aura 03/31/2021 Social History Tobacco Use Types Packs/Day Years Used Date Smoking Tobacco: Never Smokeless Tobacco: Never Alcohol Use Standard Drinks/Week Comments Yes 0 (1 standard drink = 0.6 oz pur e alcohol) on occassion Sex and Gender Information Value Date Recorded Sex Assigned at Not on file Gender Identity Not on file Sexual Orientation Not on file Last Filed [...] Mass Index 32.61 03/31/2021 2:58 PM EDT Plan of Treatment Health Maintenance Due Date Last Done Comments HIV screen 2006 Hepatitis C Screening 2006 Lipid Screening 2006 Hepatitis B vaccine (0-59 yrs) (1) 2007 Tdap adult 2007 Tetanus vaccine 2007 HPV test 2018 PAP Smear 2018 Covid-19 Vaccine ( - 2022- season) 2023 Influenza (Flu) vaccine (1 o f 1 - Influenza standard series) 02/17/2024 Care Teams Document Clerk Relationship Specialty Start Date End Date None None PCP - General 05/10/10
--- OUTSIDE RECORDS SUMMARY | 2024-01-09 10:58 | XMS_ITS | Encounter Summary ---
Author Organization [facility] Address [address] [place] [address] Care Team Providers Care Ice Cream Scooper Name Role Phone Segundo Alfaro MD Primary Care Provider [phone] [facility] Family Medicine Primary C are Provider Encounter Details Date Type Department Care Team (Late st Contact Info) Description 05/10/2020 Lab Requisition [facility] Pathology & Laboratory Medicine - [address] [address] Cassy Lorenzana PA-C [address] [place] [address] [place] [id number] Encounter for other general examination Social History Tobacco Use Types Packs/Day Years [...] No 12/11/2019 Cognitive Status Response Date of Assess ent Because of a physical, menta l, or emotional condition, does this person have serious difficulty concentrating, remembering, or making decisions? Yes 12/11/2019 documented as of this encounter Plan of Treatment Upcoming Encounters Date Type Department Care Team (Late st Contact Info) Description 06/04/2024 13:30 EST Office Visit [facility] Adult Neurology - Main [place] [address] [place] [address] Clark Hall DO [address] [place] [address] documented as of this encounter Procedures Procedure Name Priority Date/Time Associated Diagnosis Comments CHLAMYDIA/N. GONORRHOEAE AMPLIFIED NUCLEIC ACID Today 05/10/2020 11:55 EST Encounter for other general examination documented in this encounter Results * CHLAMYDIA/N. GONORRHOEAE AMPLIFIED RNA (05/10/2020 11:55 EST) Neisseria gonorrhoeae Result Negative Negative 05/11/2020 14:12 EST [facility] Chlamydia trachomatis Result Negative Negative 05/11/2020 14:12 EST [facility] Swab ENTIRE ENDOCERVIX / Unknown 05/10/2020 11:55 EST 05/10/2020 22:22 EST Cassy Lorenzana PA-C MICROBIOLOGY - G ENERAL ORDERABLES [facility] [address] [place] [address] documented in this encounter Visit Diagnoses Diagnosis Encounter for other general examination documented in this encounter Care Teams Ice Cream Scooper Relationship Specialty Start Date End Date Segundo Alfaro MD [address] [place] [address] PCP - General 12/19/11 08/08/[address] [address] PCP - General 08/09/20 documented as of this encounter
--- OUTSIDE RECORDS SUMMARY | 2024-01-09 10:58 | XMS_ITS | Encounter Summary ---
Author Organization [facility] Address [address] [place] [address] Care Team Providers Care Entry Level Administrative Assistant Name Role Phone Segundo Alfaro MD Primary Care Provider [phone] [facility] Family Medicine Primary C are Provider Encounter Details Date Type Department Care Team (Late Contact Info) Description 07/11/2019 Lab Requisition [facility] Pathology & Laboratory Medicine [address] [address] Unknown, Provider, Social History Tobacco Use Types [...] [facility] Adult Neurology - [address] [address] Clark Hall DO [address] [place] [address] documented as of this encounter Procedures Procedure Name Priority Date/Time Associated Diagnosis Comments RHEUMATOID FACTOR Routine 07/11/2019 8:34 EST documented in this encounter Results * RHEUMATOID FACTOR (07/11/2019 8:34 EST) Rheumatoid Factor 11.0 <12.5 IU/mL 07/14/2019 12:46 EST [facility] Blood VENOUS BLOOD / Unknown 07/11/2019 8:34 EST 07/11/2019 20:59 EST Provider Unknown CHEMISTRY & BLOOD GA S ORDERABLES [facility] [address] [place] [address] documented in this encounter Visit Diagnoses Not on filedocumented in this encounter Care Teams Entry Level Administrative Assistant Relationship Specialty Start Date End Date Segundo Alfaro MD [address] [place] [address] PCP - General 12/19/11 08/08/[address] [address] PCP - General 08/09/20 documented as of this encounter
--- OUTSIDE RECORDS SUMMARY | 2024-01-09 10:58 | XMS_ITS | Encounter Summary ---
Author Organization [facility] Address [address] [place] [address] Care Team Providers Care Contract Specialist Name Role Phone Bettye [facility] Family Medicine Primary C are Provider Encounter Details Date Type Department Care Team (Late st Contact Info) Description 08/10/2023 Lab Requisition [facility] Pathology & Laboratory Medicine - [address] [address] Outr Resulting Lab, Provider Social History Tobacco [...] 06/04/2024 13:30 EST Office Visit [facility] Adult Neurology - Main [place] [address] [place] [address] Clark Hall DO [address] [place] [address] documented as of this encounter Procedures Procedure Name Priority Date/Time Associated Diagnosis Comments CHLAMYDIA/N. GONORRHOEAE AMPLIFIED NUCLEIC ACID Routine 08/09/2023 15:20 EST documented in this encounter Results * CHLAMYDIA/N. GONORRHOEAE AMPLIFIED RNA (08/09/2023 15:20 EST) Neisseria gonorrhoeae Result Negative Negative 08/11/2023 15:43 EST [facility] Chlamydia trachomatis Result Negative Negative 08/11/2023 15:43 EST [facility] Swab VAGINAL STRUCTURE / Unknown 08/09/2023 15:20 EST 08/10/2023 17:03 EST Provider Outr Resulting Lab MICROBIOLOGY - GENERAL ORDERABLES [facility] [address] [place] [address] documented in this encounter Visit Diagnoses Not on filedocumented in this encounter Care Teams Contract Specialist Relationship Specialty Start Date End Date [facility] [address] [place] [address] PCP - General 08/09/20 documented as of this encounter
--- OUTSIDE RECORDS SUMMARY | 2024-01-09 10:58 | XMS_ITS | Encounter Summary ---
Author Organization [facility] Address [address] [place] [address] Care Team Providers Care Fruit Coordinator Name Role Phone Bettye [facility] Family Medicine Primary C are Provider Encounter Details Date Type Department Care Team (Late st Contact Info) Description 11/06/2022 Lab Requisition [facility] Pathology & Laboratory Medicine - [address] [id number] Outr Resulting Lab, Provider Social History Tobacco [...] Info) Description 06/04/2024 13:30 EST Office Visit [facility] Adult Neurology - Main [place] [address] [place] [address] Clark Hall DO [address] [place] [address] documented as of this encounter Procedures Procedure Name Priority Date/Time Associated Diagnosis Comments CHLAMYDIA/N. GONORRHOEAE AMPLIFIED NUCLEIC ACID Routine 11/06/2022 12:05 EDT documented in this encounter Results * CHLAMYDIA/N. GONORRHOEAE AMPLIFIED RNA (11/06/2022 12:05 EDT) Neisseria gonorrhoeae Result Negative Negative 11/07/2022 14:10 EDT [facility] Chlamydia trachomatis Result Negative Negative 11/07/2022 14:10 EDT [facility] Swab ENTIRE VAGINA / Unknown 11/06/2022 12:05 EDT 11/06/2022 21:13 EDT Provider Outr Resulting Lab MICROBIOLOGY - GENERAL ORDERABLES [facility] [address] [place] [address] documented in this encounter Visit Diagnoses Not on filedocumented in this encounter Care Teams Fruit Coordinator Relationship Specialty Start Date End Date [facility] [address] [place] [address] PCP - General 08/09/20 documented as of this encounter
--- OUTSIDE RECORDS SUMMARY | 2024-01-09 10:58 | XMS_ITS | Encounter Summary ---
Author Organization [facility] Address [address] [place] [address] Care Team Providers Care Envelope Adjuster Name Role Phone Segundo Alfaro MD Primary Care Provider [phone] Encounter Details Date Type Department Care Team (Late st Contact Info) Description 07/20/2015 Results Only [facility] [phone] Rajeev Montoya Social History Tobacco Use Types [...] 06/04/2024 13:30 EST Office Visit [facility] Adult Neurology - Main [place] [address] [place], [place] [address] Clark Hall DO [address] [place] [address] documented as of this encounter Procedures Procedure Name Priority Date/Time Associated Diagnosis Comments PAP TEST- RESULT ONLY Routine 07/20/2015 0:00 EST documented in this encounter Results * PAP TEST- RESULT ONLY (07/20/2015 0:00 EST) Pathology Report: CYTOPATHOLOGY REPORT Reports generated via electronic interface contain original data; however they are lacking the format of the original report. Caution should be taken when reading/interpreti ng unformatted reports. Name: ? PAIGE CAPUTO ? Accession #: ? [id number] : ? 1990 (Age: 25) ??F ?Collect Date: ? 07/20/2015 Location: ? [facility] ? Receive Date: ? 07/21/2015 Provider: ?RAJEEV MONTOYA PA Copy to: ? Specimen/Source: ?Pap Test, Cervix/Endocervix, ThinPrep Imaging System with manual evaluation Last Menstrual Period: ? Hormonal/Contracep tive Status: ? None ? SPECIMEN ADEQUACY ? Satisfactory for Evaluation - transformation zone component present GENERAL CATEGORIZATION ? Negative for Intraepithelial Lesion or Malignancy ? Document reviewed and electronically signed by: ? BRIGID Dye(ASCP) ? Report Date: ??07/27/2015 09:01 End of Report [facility] 07/20/2015 07/21/2015 Rajeev Montoya PATHOLOGY ORDERABLES [facility] [address] [place] [address] documented in this encounter Visit Diagnoses Not on filedocumented in this encounter Care Teams Envelope Adjuster Relationship Specialty Start Date End Date Segundo Alfaro MD [address] [place] [address] PCP - General 12/19/11 08/08/20 documented as of this encounter
--- OUTSIDE RECORDS SUMMARY | 2024-01-09 10:58 | XMS_ITS | Encounter Summary ---
Author Organization [facility] Address [address] [place] [address] Care Team Providers Care Cellar Pumper Name Role Phone Segundo Alfaro MD Primary Care Provider [phone] Encounter Details Date Type Department Care Team (Latest Contact Info) Description 08/04/2020 Hospital Encounter [facility] Center Secondary Reads [place] Discharge Disposition: Home [...] (FLONASE) 50 mcg/actuation nasal spray Instill [address] [place] into both nostrils daily. 10/15/2018 MULTIVITAMIN ORAL [...] Info) Description 06/04/2024 13:30 EST Office Visit [facility] Adult Neurology - [facility] [address] [place] [address] Clark Hall DO [address] [place] [address] documented as of this encounter Procedures Procedure Name Priority Date/Time Associated Diagnosis Comments CT OUTSIDE IMAGES NEURO Routine 08/09/2020 15:44 EST documented in this encounter Results * CT OUTSIDE IMAGES NEURO (08/09/2020 15:44 EST) Narrative 08/09/2020 15:44 EST This is a non-reportable exam. Provider Unknown MD KELLY OTHER IMAGING OR DERABLES documented in this encounter Visit Diagnoses Not on filedocumented in this encounter Care Teams Cellar Pumper Relationship Specialty Start Date End Date Segundo Alfaro MD [address] [place] [phone] PCP - General 12/19/11 08/08/20 documented as of this encounter
--- OUTSIDE RECORDS SUMMARY | 2024-01-09 10:58 | XMS_ITS | Encounter Summary ---
Author Organization [facility] Address [address] [place] [address] Care Team Providers Care Systems Security Consultant Name Role Phone Bettye [facility] Medicine Primary C are Provider Reason for Visit * Reason Onset Date Comments Appointment Related 12/18/2023 Encounter Details Date Type Department Care Team (Late st Contact Info) Description 12/18/2023 Telephone [facility] Adult Neurology - [facility] [address] [place], [place] [address] Clark Hall DO [address] [place], [place] [address] Appointment Related Social History Tobacco Use Types [...] Yes 12/11/2019 documented as of this encounter Miscellaneous Notes * Telephone Encounter - Olesya George MA - 01/07/2024 1331 EDT Called from waitlist to offer pt sooner appt time with Dr. Clark Hall at 2:30pm on 01/08/24. Should pt call back and appt slot still be available, please reschedule current 06/04/24 60min fuv long to 01/08/24 appt time. * Telephone Encounter - Denisha Gonzalez - 12/18/2023 1310 EDT Pt calls and scheduled NPV with Dr. Clark Hall for 06/04/24 at 1:30PM. Pt is added to wait list and attached referral. documented in this encounter Plan of Treatment Upcoming Encounters Date Type Department Care Team (Late st Contact Info) Description 06/04/2024 13:30 EST Office Visit [facility] Adult Neurology - [facility] [address] [place] [address] Clark Hall DO [address] [place] [address] documented as of this encounter Visit Diagnoses Not on filedocumented in this encounter Care Teams Systems Security Consultant Relationship Specialty Start Date End Date [facility] [address] [place] [address] PCP - General 08/09/20 documented as of this encounter
--- OUTSIDE RECORDS SUMMARY | 2024-01-09 10:58 | XMS_ITS | Encounter Summary ---
Author Organization [facility] Address [address] [place] [address] Care Team Providers Care Leaf Blender Name Role Phone Bettye [facility] Family Medicine Primary C are Provider Encounter Details Date Type Department Care Team (Late st Contact Info) Description 12/25/2020 Lab Requisition [facility] Pathology & Laboratory Medicine - [address] [id number] Outr Resulting Lab, Provider Social History Tobacco [...] Visit [facility] Adult Neurology - Main [place] [address] [place] [address] Clark Hall DO [address] [place] [address] documented as of this encounter Procedures Procedure Name Priority Date/Time Associated Diagnosis Comments ZZCOVID-19 TEST [facility] PCR Today 12/24/2020 13:42 EDT COVID-19 TESTING Routine 12/24/2020 13:4 2 EDT documented in this encounter Results * COVID-19 TEST [facility] PCR (12/24/2020 13:42 EDT) Swab ENTIRE NASOPHARYNX / Unknown 12/24/2020 13:42 EDT 12/25/2020 22:16 EDT Provider Outr Resulting Lab MICROBIOLOGY - GENERAL ORDERABLES [facility] [address] [place] [address] * COVID-19 TESTING (12/24/2020 13:42 EDT) COVID-19 rt-PCR Result Negative Negative 12/26/2020 11:40 EDT [facility] Comment: This test has not been FDA cleared or approved. This test has been authorized by FDA under an EUA for use by authorized laboratories. This test has been authorized only for detection of nucleic acid from 2019-nCoV, not for any other viruses or pathogens. This test is only authorized for the duration of the declaration that circumstances exist justifying the authorization of emergency use of in vitro diagnostic tests for detection and/or diagnosis of 2019-nCoV under section 564(b)(1) of Act, 21 U.S.C ?? 360bbb-3(b) (1), unless the authorization is terminated or revoked sooner. Negative results do not preclude 2019-nCoV infection and should not be used as the sole basis for treatment or other patient management decisions. Negative results must be combined with clinical observations, patient history, and epidemiological information. Performed on the [employer] Fusion instrument Performing Lab Barney [facility] 12/26/2020 11:40 EDT [facility] Swab 12/24/2020 13:4 2 EDT 12/25/2020 22:16 EDT Provider Outr Resulting Lab MICROBIOLOGY - GENERAL ORDERABLES Performing Organization Address City/State/[facility] Co de Phone Number [facility] [address] [place] [address] documented in this encounter Visit Diagnoses Not on filedocumented in this encounter Care Teams Leaf Blender Relationship Specialty Start Date End Date [facility] [address] [place] [address] PCP - General 08/09/20 documented as of this encounter
--- OUTSIDE RECORDS SUMMARY | 2024-01-09 10:59 | XMS_ITS | Continuity of Care Document ---
Author Name [facility] Address [address] [place] [id number] Organization [facility] Address [address] [place] [address] Care Team Providers Care Distribution Associate Name Role Phone Out of Town, Provider Primary Care Physician Chris Donaldson Attending Physician Unavailable Allergies, Adverse Reactions, Alerts Allergen Type Severity Reaction Last Updated Verified Status latex Allergy pruritis January 07, 2016 Y Active Sulfa (Sulfonamide Antibiotics) Allergy rash January 07, 2016 Y Active Medications Active Medications Medication Dose Units Route Sig Qty Days Start Date Status Instructions Budesonide-Formot dilip [Symbicort] 2 PUFF INHALATION TWICE A DAY May 22, 2014 Active Albuterol Sulfate [Proair Hfa inhaler] 2 PUFF INHALATION Q4H PRN For sob November 05, 2015 Active Nitrofurantoin Monohyd/M-Cryst [Macrobid] 100 MG ORAL Q12H February 10, 2017 Active Ibuprofen 800 MG ORAL THREE TIMES A DAY 9 3 February 10, 2017 Active take with food Cyclobenzaprine 5 MG ORAL BEDTIME 3 3 February 10, 2017 Active Take only at bedtime, do not drive or drink alcohol with med. Discontinued Medications Medication Dose Units Route Sig Qty Days Start Date Discontinued Date Status Instructions Buspirone Hydrochloride [Buspirone HCl] 15 MG ORAL TWICE A DAY September 26, 2010 October 18, 2012 Disconti nued Citalopram Hydrobromide [Citalopram] 40 MG ORAL DAILY September 26, 2010 October 18, 2012 Disconti nued Ethinyl Estradiol/Lev onorges [Seasonale 30 Mcg-0.15 mg] 1 TAB ORAL DAILY September 26, 2010 October 18, 2012 Disconti nued Percocet 325 mg-5 mg 1 TAB ORAL Q4H PRN For Pain October 11, 2010 October 18, 2012 Disconti nued Hydrocodone-A cetaminophen 1 TAB ORAL EVERY 4 HOURS PRN For TOOTH PAIN October 18, 2012 October 18, 2012 Disconti nued Sertraline Hydrochloride [SERTRALINE 25 MG TAB] 25 MG ORAL DAILY October 18, 2012 May 22, 2014 Disconti nued Acetaminophen /Hydrocodone Bi [APAP/Hydroco done Bitartrate 500 mg-7.5 mg] 1 TAB ORAL NEEDED PRN For TOOTH PAIN October 18, 2012 October 31, 2012 Disconti nued Oxycodone-Santosh taminophen 1 TAB ORAL Q4H PRN For Pain November 03, 2012 May 22, 2014 Disconti nued Ibuprofen 600 MG ORAL EVERY 6 HOURS November 03, 2012 May 22, 2014 Disconti nued Acetaminophen [Mapap (Acetaminophe n)] 650 MG ORAL Q4H PRN For Mild Pain 0 January 09, 2016 February 10, 2017 Disconti nued Oxycodone-Santosh taminophen 1 - 2 TAB ORAL Q6H PRN For Pain 15 January 09, 2016 February 10, 2017 Disconti nued Docusate Sodium [Doc-Q-Lace] 100 MG ORAL TWICE A DAY 60 January 09, 2016 February 10, 2017 Disconti nued Ibuprofen 600 MG ORAL Q6H PRN For Mild Pain 60 January 09, 2016 February 10, 2017 Disconti nued Oxycodone-Santosh taminophen 2 TAB ORAL Q4H PRN For Pain 12 January 10, 2016 February 10, 2017 Disconti nued 1 to 2 depending on pain level. Problem List Active Problems Medical Problem Onset Date Status Pyelonephritis complicating Active Previous section Active S/P total abdominal hysterectomy Active Inactive/Resolved Problems Medical Problem Onset Date Status section Inactive Procedures Procedure Date Status CT Abd Pel w/o Contrast February 10, 2017 complete d Relevant Diagnostic Tests and/or Laboratory Data Laboratory Results Test Date/Time Result Interp. Ref. Range Result Comment White Blood Count February 10, 2017 5:50pm 7.93 1000/mm3 4.8-10.8 Red Blood Count February 10, 2017 5:50pm 5.05 M/mm3 4.20-5.40 Hemoglobin February 10, 2017 5:50pm 12.8 g/dL 12.0-16.0 Hematocrit February 10, 2017 5:50pm 40.5 % 37-47 Mean Corpuscular Volume February 10, 2017 5:50pm 80.2 fL Low 81.0-99.0 Mean Corpuscular Hemoglobin February 10, 2017 5:50pm 25.3 pg Low 27-31 Mean Corpuscular Hemoglobin Concent February 10, 2017 5:50pm 31.6 g/dL Low 33-37 Red Cell Distribution Width February 10, 2017 5:50pm 12.8 % 11.5-14.5 Platelet Count February 10, 2017 5:50pm 128 1000/mm3 Low 140-440 Mean Platelet Volume February 10, 2017 5:50pm 14.0 fL High 7.4-10.4 Neutrophils (%) (Auto) February 10, 2017 5:50pm 72.1 % High 40.0-72.0 Lymphocytes (%) (Auto) February 10, 2017 5:50pm 16.3 % Low 17-45 Monocytes (%) (Auto) February 10, 2017 5:50pm 6.6 % 3-11 Eosinophils (%) (Auto) February 10, 2017 5:50pm 4.7 % High 0-3 Basophils (%) (Auto) February 10, 2017 5:50pm 0.3 % 0-1 Neutrophils # (Auto) February 10, 2017 5:50pm 5.73 1000/mm3 1.4-6.5 Lymphocytes # (Auto) February 10, 2017 5:50pm 1.29 1000/mm3 1.2-3.4 Monocytes # (Auto) February 10, 2017 5:50pm 0.52 1000/mm3 0.0-0.8 Eosinophils # (Auto) February 10, 2017 5:50pm 0.37 1000/mm3 0.0-0.7 Basophils # (Auto) February 10, 2017 5:50pm 0.02 1000/mm3 0.0-0.1 Differential Method February 10, 2017 5:50pm Automated Urine RBC September 08, 2017 11:45am None seen /hpf Urine WBC September 08, 2017 11:45am None seen /hpf Urine Squamous Epithelial Cells September 08, 2017 11:45am 1+ /hpf Urine Bacteria September 08, 2017 11:45am None seen /hpf Urine Mucus September 08, 2017 11:45am Present Urine Culture Done September 08, 2017 11:45am No CULTURE NOT INDICATED. Sodium Level February 10, 2017 5:50pm 143 mmol/L 137-145 Potassium Level February 10, 2017 5:50pm 4.5 mmol/L 3.6-5.0 Chloride Level February 10, 2017 5:50pm 105 mmol/L 98-107 Carbon Dioxide Level February 10, 2017 5:50pm 25 mmol/L 22-30 Anion Gap February 10, 2017 5:50pm 13 7-16 Blood Urea Nitrogen February 10, 2017 5:50pm 9 mg/dL 7-17 Creatinine February 10, 2017 5:50pm 0.5 mg/dL Low 0.52-1.04 Glomerular Filtration Rate Calc February 10, 2017 5:50pm > 60 mL/min Glucose Level February 10, 2017 5:50pm 83 mg/dL 70-100 Calcium Level February 10, 2017 5:50pm 9.7 mg/dL 8.4-10.2 Calcium Adjusted for Albumin February 10, 2017 5:50pm 9.4 mg/dL 8.4-10.2 Total Bilirubin February 10, 2017 5:50pm 0.8 mg/dL 0.2-1.3 Aspartate Amino Transf (AST/SGOT) February 10, 2017 5:50pm 29 U/L 14-36 Alanine Aminotransferase (ALT/SGPT) February 10, 2017 5:50pm 40 U/L 9-52 Total Protein February 10, 2017 5:50pm 7.5 g/dL 6.3-8.2 Albumin February 10, 2017 5:50pm 4.7 g/dL 3.5-5.0 Alkaline Phosphatase February 10, 2017 5:50pm 83 U/L 38-126 Lipase February 10, 2017 5:50pm 79 U/L 23-300 Advance Directives Advance Directive Response Recorded Date/ Time Do we have a copy on file here at [facility]? No February 10, 2017 5:36pm Does patient have an Advanced Directive? No September 05, 2010 2:40am Pt has a Living Will? No September 05, 2010 2:40am Pt has a Power of Back Hanger? No Zaid 2010 2:40am Hospital Discharge Instructions No known hospital discharge instructions. Hospital Discharge Medications Medication Dose Units Route Sig Qty Days Order Date Status Instructions Buspirone Hydrochloride 15 MG ORAL TWICE A DAY September 26, 2010 Discontinu ed Citalopram Hydrobromide 40 MG ORAL DAILY September 162010 Discontinu ed Ethinyl Estradiol/Abdulaziz orges 1 TAB ORAL DAILY September 26, 2010 Discontinu ed Percocet 325 mg-5 mg 1 TAB ORAL Q4H PRN For Pain October 11, 2010 Discontinu ed Hydrocodone-Santosh taminophen 1 TAB ORAL EVERY 4 HOURS PRN For TOOTH PAIN October 18, 2012 Discontinu ed Sertraline Hydrochloride 25 MG ORAL DAILY October 18, 2012 Discontinu ed Acetaminophen/H ydrocodone Bi 1 TAB ORAL NEEDED PRN For TOOTH PAIN October 18, 2012 Discontinu ed Oxycodone-Aceta minophen 1 TAB ORAL Q4H PRN For Pain November 03, 2012 Discontinu ed Ibuprofen 600 MG ORAL EVERY 6 HOURS November 03, 2012 Discontinu ed Budesonide-Form oterol 2 PUFF INHALATION TWICE A DAY May 22, 2014 Active Albuterol Sulfate 2 PUFF INHALATION Q4H PRN For sob November 05, 2015 Active Acetaminophen 650 MG ORAL Q4H PRN For Mild Pain 0 January 09, 2016 Discontinu ed Oxycodone-Aceta minophen 1 - 2 TAB ORAL Q6H PRN For Pain 15 January 09, 2016 Discontinu ed Docusate Sodium 100 MG ORAL TWICE A DAY 60 January 09, 2016 Discontinu ed Ibuprofen 600 MG ORAL Q6H PRN For Mild Pain 60 January 09, 2016 Discontinu ed Oxycodone-Aceta minophen 2 TAB ORAL Q4H PRN For Pain 12 January 10, 2016 Discontinu ed 1 to 2 depending on pain level. Nitrofurantoin Monohyd/M-Cryst 100 MG ORAL Q12H Augu 2016 Active Ibuprofen 800 MG ORAL THREE TIMES A DAY 9 3 February 10, 2017 Active take with food Cyclobenzaprine 5 MG ORAL BEDTIME 3 3 February 10, 2017 Active Take only at bedtime, do not drive or drink alcohol with med. Encounters Encounter Facility Location Admit/Visit Date Discharge/Departure Date Attending Provider Departed Referred [facility] September 08, 2017 12:19pm September 08, 2017 12:20pm Chris Matos Departed Emergency [facility] Emergency Department February 10, 2017 4:55pm February 10, 2017 7:20pm Functional Status No known functional status. Immunizations No known immunizations. Payers Payer Name Policy Type Covered Libertarian Covered Libertarian Id Relationship Subscriber Subscriber Id [place] Medicaid RAYMUNDO CARREON [id number] Self/Same as Patient RAYMUNDO CARREON [id number] SELF PAY Personal [place] MEDICAID (DO NOT USE) Medicaid RAYMUNDO CARREON [id number] Self/Same as Patient RAYMUNDO CARREON [id number] Plan of Care No Known Plan of Care Information Social History Query Response Date Recorded Comment Alcohol None June 15, 2014 1:51pm Drugs None June 15, 2014 1:51pm Living Situation With Family August 03, 2016 7:10am Query Response Start Date Stop Date Smoking Status Former smoker Vital Signs Vital Reading Result Reference Range Collection Date/Time Height n/a Weight 72.121 kg February 10, 2017 4:57pm Temperature 98.5 F 97.6 F-99.6 F February 10 7 4:57pm Pulse 68 BPM 60-100 February 10, 2017 7:17pm Respiration 20 RPM 12-24 February 10, 2017 4:57pm Pulse Oximetry 100 % 95-100 February 10 7:17pm Blood Pressure Systolic 97 100-140 2016 7:17pm Blood Pressure Diastolic 54 50-85 Jan 2016 7:17pm Body Mass Index n/a
--- OUTSIDE RECORDS SUMMARY | 2024-01-09 10:59 | XMS_ITS | Continuity of Care Document ---
Author Name [facility] Address [address] [place] [address] Organization [facility] Address [address] [place] [address] Care Team Providers Care Digital Project Coordinator Name Role Phone Monico Santizo Attending Physician PCP, No Primary Care Physician Unavailab le Allergies, Adverse Reactions, Alerts Allergen Type Severity Reaction Last Updated Verified Status latex Allergy pruritis January 07, 2016 Y Active Sulfa (Sulfonamide Antibiotics) Allergy rash January 07, 2016 Y Active Medications Active Medications Medication Dose Units Route Sig Qty Days Start Date Discontinued Date Status Instructions Budesonide/Fo rmoterol 80/4.5 2 PUFF INHALAT ION TWICE A DAY Decembe r 2013 Active Albuterol Sulfate 2 PUFF INHALAT ION Q4H PRN For sob November 05, 2015 Active Acetaminophen (Regular) 650 MG ORAL Q4H PRN For Mild Pain 0 January 09, 2016 Active Oxycodone/Apa p 1 - 2 TAB ORAL Q6H PRN For Pain 15 January 09, 2016 Active Docusate Sodium 100 MG ORAL TWICE A DAY 60 January 09, 2016 Active Ibuprofen 600 MG ORAL Q6H PRN For Mild Pain 60 January 09, 2016 Active Oxycodone/Apa p 2 TAB ORAL Q4H PRN For Pain 12 January 10, 2016 Active 1 to 2 depending on pain level. Discontinued Medications Medication Dose Units Route Sig Qty Days Start Date Discontinued Date Status Instructions Buspirone Hydrochloride 15 MG ORAL TWICE A DAY September 26, 2010 October 18, 2012 Disconti nued Citalopram Hydrobromide 40 MG ORAL DAILY September 26, 2010 October 18, 2012 Disconti nued Ethinyl Estradiol/Lev onorges 1 TAB ORAL DAILY September 26, 2010 October 18, 2012 Disconti nued Percocet 325 mg-5 mg 1 TAB ORAL Q4H PRN For Pain October 11, 2010 October 18, 2012 Disconti nued Hydrocodone/A pap 5/325 1 TAB ORAL EVERY 4 HOURS PRN For TOOTH PAIN October 18, 2012 October 18, 2012 Disconti nued Sertraline Hydrochloride 25 MG ORAL DAILY October 18, 2012 May 22, 2014 Disconti nued Acetaminophen /Hydrocodone Bi 1 TAB ORAL NEEDED PRN For TOOTH PAIN October 18, 2012 October 31, 2012 Disconti nued Oxycodone/Apa p 1 TAB ORAL Q4H PRN For Pain November 03, 2012 May 22, 2014 Disconti nued Ibuprofen 600 MG ORAL EVERY 6 HOURS November 03, 2012 May 22, 2014 Disconti nued Problem List Active Problems Medical Problem Onset Date Status Previous section Active Pyelonephritis complicating Active S/P total abdominal hysterectomy Active Inactive/Resolved Problems Medical Problem Onset Date Status section Inactive Procedures Procedure Date Status Provider(s) OPD Excision Suture Granuloma Lower.. August [address] Abd Pel w/ Contrast July 24, 2016 completed Urine Culture May 12, 2016 completed Urine Culture February 01, 2016 completed RESECTION OF CERVIX, OPEN APPROACH January 07, 2016 activ e RESECTION OF UTERUS, OPEN APPROACH January 07, 2016 activ e RESECTION OF BILATERAL FALLO PIAN TUBES, OPEN APPROACH January 07, 2016 active RELEASE UTERUS, OPEN APPROACH January 07, 2016 active Urine Culture December 28, 2015 completed OBG Hysteroscopy November 12, 2015 completed Rika Bonner NOBG US Transvaginal Non OB October 26, 2015 active Chest 2 vw October 07, 2015 completed Group A Streptococcus Screen (TAYLA) September 25, 2015 compl eted Relevant Diagnostic Tests and/or Laboratory Data Laboratory Results Test Date/Time Result Interp. Ref. Range Result Co mment White Blood Count February 01, 2016 10:09am 8.64 1000/mm3 4.8-10.8 Red Blood Count February 01, 2016 10:09am 4.74 M/mm3 4.20-5.40 Hemoglobin February 01, 2016 10:09am 12.4 g/dL 12.0-16.0 Hematocrit February 01, 2016 10:09am 38.3 % 37-47 Mean Corpuscular Volume February 01, 2016 10:09am 80.8 fL Low 81.0-99.0 Mean Corpuscular Hemoglobin February 01, 2016 10:09am 26.2 pg Low 27-31 Mean Corpuscular Hemoglobin Concent February 01, 2016 10:09am 32.4 g/dL Low 33-37 Red Cell Distribution Width February 01, 2016 10:09am 13.4 % 11.5-14.5 Platelet Count February 01, 2016 10:09am 129 1000/mm3 Low 140-440 Mean Platelet Volume February 01, 2016 10:09am 14.8 fL High 7.4-10.4 Neutrophils % (Manual) February 01, 2016 10:09am 73.0 % 55-75 Lymphocytes % (Manual) February 01, 2016 10:09am 17.0 % Low 20-35 Monocytes % (Manual) February 01, 2016 10:09am 5.0 % 3-11 Eosinophils % (Manual) February 01, 2016 10:09am 5.0 % High 0-3 Absolute Neutrophil February 01, 2016 10:09am 6.307 1000/mm3 1.4-6.5 Band Neutrophils # February 01, 2016 10:09am 0.00 1000/mm3 Lymphocytes # (Manual) February 01, 2016 10:09am 1.468 1000/mm3 Monocytes # (Manual) February 01, 2016 10:09am 0.432 1000/mm3 Eosinophils # (Manual) February 01, 2016 10:09am 0.432 1000/mm3 Basophils # (Manual) February 01, 2016 10:09am 0 1000/mm3 Metamyelocytes # February 01, 2016 10:09am 0 1000/mm3 Myelocytes # February 01, 2016 10:09am 0 1000/mm3 Promyelocytes # February 01, 2016 10:09am 0 1000/mm3 Blastocytes # February 01, 2016 10:09am 0 1000/mm3 Absolute Atypical Lymphocytes February 01, 2016 10:09am 0 Platelet Estimate February 01, 2016 10:09am 10-12 Giant Platelets February 01, 2016 10:09am 1+ Polychromasia February 01, 2016 10:09am 1+ Anisocytosis February 01, 2016 10:09am 1+ Microcytosis February 01, 2016 10:09am 1+ Red Cell Morphology Comment February 01, 2016 10:09am Not Reportable Urine RBC May 12, 2016 4:54pm None seen /hpf Urine WBC May 12, 2016 4:54pm 20-40 /hpf High Urine Squamous Epithelial Cells May 12, 2016 4:54pm 1+ /hpf Urine Bacteria May 12, 2016 4:54pm 3+ /hpf High Urine Mucus May 12, 2016 4:54pm Present Urine Culture Done May 12, 2016 4:54pm Yes URINE SPECIMEN CULTURED Thyroid Stimulating Hormone (TSH) October 12, 2015 9:45am 3.15 mlU/L 0.47-4.68 TSH cascade is not recommended for patients in which pituitary or hypothalmic disorders are suspected. Microbiology Results Procedure Source Result Collection Date/Time Result Date/Time Group A Streptococcus Screen (TAYLA) Throat No results entered September 25, 2015 11:50am Urine Culture Ur,Clean Catch Escherichia Coli December 28, 2015 10:57am December 31, 2015 8:23am Urine Culture Ur,Clean Catch No results entered February 01, 2016 10:09am Urine Culture Ur,Clean Catch Escherichia Coli May 12, 2016 9:44pm May 15, 2016 7:24am Advance Directives Advance Directive Response Recorded Date/ Time Does the patient have a living will? No September 05, 2010 2:40am Does the patient have an advanced directive? No September 05, 2010 2:40am Power of Elevator Constructor Electric? No September 05 2:40am Chief Complaint and Reason for Visit Encounter Admit Date Chief Complaint Reason for V isit Departed Surgical Day Care August 03, 2016 6:55am OTH COMPLICATIONS OF PROCEDURES, NEC, SUBS Hospital Discharge Instructions No known hospital discharge instructions. Hospital Discharge Medications Medication Dose Units Route Sig Qty Days Order Date Status Instructions Buspirone Hydrochloride 15 MG ORAL TWICE A DAY September 26, 2010 Discontinue d Citalopram Hydrobromide 40 MG ORAL DAILY September 162010 Discontinue d Ethinyl Estradiol/Levo norges 1 TAB ORAL DAILY September 26, 2010 Discontinue d Percocet 325 mg-5 mg 1 TAB ORAL Q4H PRN For Pain October 11, 2010 Discontinue d Hydrocodone/Ap ap 5/325 1 TAB ORAL EVERY 4 HOURS PRN For TOOTH PAIN October 18, 2012 Discontinue d Sertraline Hydrochloride 25 MG ORAL DAILY October 18, 2012 Discontinue d Acetaminophen/ Hydrocodone Bi 1 TAB ORAL NEEDED PRN For TOOTH PAIN October 18, 2012 Discontinue d Oxycodone/Apap 1 TAB ORAL Q4H PRN For Pain November 03, 2012 Discontinue d Ibuprofen 600 MG ORAL EVERY 6 HOURS November 03, 2012 Discontinue d Budesonide/For moterol 80/4.5 2 PUFF INHALATION TWICE A DAY May 22, 2014 Active Albuterol Sulfate 2 PUFF INHALATION Q4H PRN For sob November 05, 2015 Active Acetaminophen (Regular) 650 MG ORAL Q4H PRN For Mild Pain 0 January 09, 2016 Active Oxycodone/Apap 1 - 2 TAB ORAL Q6H PRN For Pain 15 January 09, 2016 Active Docusate Sodium 100 MG ORAL TWICE A DAY 60 January 09, 2016 Active Ibuprofen 600 MG ORAL Q6H PRN For Mild Pain 60 January 09, 2016 Active Oxycodone/Apap 2 TAB ORAL Q4H PRN For Pain 12 January 10, 2016 Active 1 to 2 depending on pain level. Encounters Encounter Facility Location Admit Date Discharge Date Attending Provider Departed Surgical Day Care [facility] Surgical Services August 03, 2016 6:55am August 03, 2016 9:55am Monico Santizo Registered Clinical [facility] July 24, 2016 9:41am Monico Santizo Registered Referred [facility] May 12, 2016 8:26pm Monserrat López Registered Referred [facility] May 12, 2016 5:10pm Monserrat López Registered Referred [facility] ENGINEERED WOOD DESIGNER February 01, 2016 4:02pm Jaye Bran Discharged Inpatient [facility] January 07, 2016 5:47pm January 10, 2016 10:13am Marty Bonner Registered Referred [facility] ENGINEERED WOOD DESIGNER December 28, 2015 7:15pm Jaye Bran Registered Clinical [facility] ENGINEERED WOOD DESIGNER November 29, 2015 9:22am Marty Bonner Registered Surgical Day Care [facility] Surgical Services November 12, 2015 9:44am Marty Bonner Registered Clinical [facility] ENGINEERED WOOD DESIGNER November 02, 2015 9:42am Marty Bonner Registered Clinical [facility] ENGINEERED WOOD DESIGNER October 26, 2015 8:55am Marty Bonner Registered Referred [facility] ENGINEERED WOOD DESIGNER October 12, 2015 2:44pm Marty Bonner Registered Clinical [facility] ENGINEERED WOOD DESIGNER October 12, 2015 9:39am Marty Bonner Registered Clinical [facility] October 07, 2015 10:41am Carlito Anne Registered Referred [facility] Urgent [facility] September 25, 2015 6:20pm Stella Britt Registered Clinical [facility] ENGINEERED WOOD DESIGNER September 02, 2015 10:46am Jaye Bran Functional Status Query Response Date Recorded Comment Comprehension Ability Understands Concepts January 09 8:00am Memory Description Intact January 10, 2016 8:00am Mood Description Appropriate Calm January 10, 2016 8:00am Patient Behavior Appropriate Cooperative January 10, 2016 8:00am Speech Pattern Clear Appropriate August 03, 2016 7:10am Query Response Date Recorded Comment Ambulation Ability Independent January 07, 2016 12:38pm Clothing Mgt Ability Independent January 07, 2016 12:38p m Feeding Ability Independent January 07, 2016 12:38pm Hygiene & Grooming Ability Independent January 07, 2016 12:38pm Oral Hygiene Ability Independent January 07, 2016 12:38p m Toileting Ability Independent January 07, 2016 12:38pm Immunizations No known immunizations. Payers Payer Name Policy Type Covered Republican Covered Republican Id Relationship Subscriber Subscriber Id [place] MEDICAID Medicaid RAYMUNDO CARREON [id number] SELF/SAME PATIENT RAYMUNDO CARREON [id number] Plan of Care No known plan of care. Social History Query Response Date Recorded Comment Alcohol None June 15, 2014 1:51pm Drugs None June 15, 2014 1:51pm Living Situation With Family August 03, 2016 7:10am Query Response Start Date Stop Date Smoking Status Never Smoker Vital Signs Vital Reading Result Reference Range Collection Date/Time Height 5 ft August 03 7:10am Weight 145 lb August 03 7:10am Temperature 98.4 F 97.6 F-99.6 F August 03 017 7:10am Pulse 68 BPM 60-100 August 03 9:52am Respiration 16 RPM 06-10August 03 9:52am Pulse Oximetry 100 % 95-100 August 03, 2016 9:52am Blood Pressure Systolic 126 100-140 Febr uary 2016 9:52am Blood Pressure Diastolic 66 50-85 Feb ruary 2016 9:52am Body Mass Index n/a
--- OUTSIDE RECORDS SUMMARY | 2024-01-09 10:59 | XMS_ITS | Encounter Summary ---
Author Organization [facility] Address [address] [place] [address] Care Team Providers Care Lozenge Maker Helper Name Role Phone Segundo Alfaro MD Primary Care Provider [phone] Encounter Details Date Type Department Care Team (Late st Contact Info) Description 03/21/2010 Historical Results Only [facility] - [facility] [address], [place] [address] Keiry Bradshaw MD [address] [place] [address],[facility] [address] [place] [address] Social History Tobacco Use Types Packs/Day Years Used Date Smoking Tobacco: Never Assessed Sex and Gender Information Value Date Recorded Sex Assigned at Not on file Gender Identity Female 08/09/2020 12:13 EST Sexual Orientation Not on file documented as of this encounter Plan of Treatment Upcoming Encounters Date Type Department Care Team (Late Contact Info) Description 06/04/2024 13:30 EST Office Visit [facility] Adult Neurology - Main [place] [address], [place] [id number] Clark Hall DO [address] [place], [place] [address] documented as of this encounter Procedures Procedure Name Priority Date/Time Associated Diagnosis Comments SURGICAL PATHOLOGY Routine 03/21/2010 documented in this encounter Results * SURGICAL PATHOLOGY (03/21/2010) 03/21/2010 03/21/2010 17: 30 EDT Narrative [facility] - 04/23/2010 13:31 EDT ----- ------- Name: PAIGE LYNN ? : 86 ?Age/Sex: / ?Unit#: [id number] ? Loc: OBS ? Status: DIS IN ? Reg Date: 03/21/10 ? Pt.Phone Number: ? ----- ------- Specimen: [id number] ? STATUS: SOUT ?Spec Date:03/21/10 ? Physician Copies: ?Keiry Bradshaw ? Tissues: A ?? Female Reproductive System (PLACENTA) ? CPT: 84188 ?? Units: ??1 ?FINAL DIAGNOSIS ? Placenta, membranes, and umbilical cord; ? - Mature iglesias placenta (498 grams). ? - No pathologic features. ? - Normal 3-vessel cord. ----- ------- ?COMMENT ? No significant inflammation and no meconium identified. ? GROSS DESCRIPTION ? Received in formalin labeled with the patient's name and placenta is a ? placenta with attached membranes and umbilical cord. ?? membranes are ? luna-vargas, pliable and translucent and are complete. ??No meconium staining is ? grossly evident, to be confirmed histologically. ??The trimmed placenta weighs ? 498 grams. ??The surface is blue-vargas, smooth and glistening with the ? usual pattern of arborizing vessels. ??No varices or thromboses are seen. ??The ? maternal surface shows normal cotyledonous architecture, is complete and ? intact. ??No infarcts are identified. ??Interval sectioning shows deep red spongy ? parenchyma without solid or cystic masses. r.s. 4. CP ?? PREOP DX/CLINICAL HISTORY ?UNREASSURING HEART RATE-TERM PREG C SECTION Signed ____(signature on file)____ Lacey Hein M.D. 04/23/10 By the signature above, the attending physician certifies that he/she has personally conducted a gross and/or microscopic examination of the described specimens and rendered or confirmed the above diagnosis. Test Performed by [facility], [address] [address] Paper Wrapping Machine Operator: Lacey Hein MD PHD ----- ------- Keiry Bradshaw MD PATHOLOGY ORDERABLES [facility] documented in this encounter Visit Diagnoses Not on filedocumented in this encounter Care Teams Lozenge Maker Helper Relationship Specialty Start Date End Date Segundo Alfaro MD [address] [facility] [place] [id number] PCP - General 12/19/11 08/08/20 documented as of this encounter
--- OUTSIDE RECORDS SUMMARY | 2024-01-09 10:59 | XMS_ITS | Continuity of Care Document ---
Author Name [facility] Organization [facility] Care Team Providers Care Pipe Stem Aligner Name Role Phone Carlito Anne Primary Care Physician Marty Bonner Attending Physician Allergies, Adverse Reactions, Alerts Allergen Type Severity Reaction Last Updated Verified Status Latex Allergy Moderate pruritis May 22, 2014 Y Activ e SULFA (sulfonamide) Allergy Moderate rash May 22, 2014 Y Active Medications Medication Dose Units Route Sig Qty Days Start Date Discontinued Date Status Instructions Buspirone Hydrochloride 15 MG PO TWICE A DAY September 26, 2010 October 18, 2012 Disconti nued Citalopram Hydrobromide 40 MG PO DAILY September 26, 2010 October 18, 2012 Disconti nued Ethinyl Estradiol/Lev onorges 1 TAB PO DAILY September 26, 2010 October 18, 2012 Disconti nued Percocet 325 mg-5 mg 1 TAB PO Q4H PRN For Pain October 11, 2010 October 18, 2012 Disconti nued Hydrocodone/A pap 5/325 1 TAB PO EVERY 4 HOURS PRN For TOOTH PAIN October 18, 2012 October 18, 2012 Disconti nued Vitamin 1 TAB PO DAILY October 18, 2012 Active Sertraline Hydrochloride 25 MG PO DAILY October 18, 2012 May 22, 2014 Disconti nued Acetaminophen /Hydrocodone Bi 1 TAB PO NEEDE D PRN For TOOTH PAIN October 18, 2012 October 31, 2012 Disconti nued Oxycodone/Apa p 1 TAB PO Q4H PRN For Pain November 03, 2012 May 22, 2014 Disconti nued Ibuprofen 600 MG PO EVERY 6 HOURS November 03, 2012 May 22, 2014 Disconti nued Albuterol 2 PUFF INH FOUR TIMES DAILY PRN For Cough Decembe r 2013 Active Budesonide/Fo rmoterol 80/4.5 2 PUFF INH TWICE A DAY Decembe r 2013 Active Oxycodone/Apa p 2 TAB PO Q4H PRN For Pain June 18, 2014 Active 1 to 2 depending on pain level. Problem List Medical Problem Onset Date Status Previous section Active Pyelonephritis complicating Active section Inactive Procedures Procedure Date Status Provider(s) OBG Caesarean Section June 15, 2014 completed Marty [facility] Streptococcus Screen (TAYLA) June 01, 2014 c ompleted US 3RD TRIMESTER SCREENING May 05, 2014 active Urine Culture February 16, 2014 completed US 2ND TRIMESTER SCREENING February 02, 2014 active Urine Culture November 25, 2013 completed US TRANSVAGINAL OB November 04, 2013 active Relevant Diagnostic Tests and/or Laboratory Data Test Date/Time Result Interp. Ref. Range Result Co mment White Blood Count June 16, 2014 7:30am 16.24 1000/mm3 High 4.8-10.8 Red Blood Count June 16, 2014 7:30am 3.48 M/mm3 Low 4.20-5.40 Hemoglobin June 16, 2014 7:30am 10.0 g/dL Low 12.0-16.0 Hematocrit June 16, 2014 7:30am 29.8 % Low 37-47 Mean Corpuscular Volume June 16, 2014 7:30am 85.6 fL 81.0-99.0 Mean Corpuscular Hemoglobin June 16, 2014 7:30am 28.7 pg 27-31 Mean Corpuscular Hemoglobin Concent June 16, 2014 7:30am 33.6 g/dL 33-37 Red Cell Distribution Width June 16, 2014 7:30am 14.6 % High 11.5-14.5 Platelet Count June 16, 2014 7:30am 104 1000/mm3 Low 140-440 Mean Platelet Volume June 16, 2014 7:30am 13.8 fL High 7.4-10.4 Neutrophils (%) (Auto) February 16, 2014 10:37am 85.7 % High 40.0-72.0 Lymphocytes (%) (Auto) February 16, 2014 10:37am 6.2 % Low 17-45 Monocytes (%) (Auto) February 16, 2014 10:37am 6.2 % 3-11 Eosinophils (%) (Auto) February 16, 2014 10:37am 1.8 % 0-3 Basophils (%) (Auto) February 16, 2014 10:37am 0.1 % 0-1 Neutrophils # (Auto) February 16, 2014 10:37am 12.04 1000/mm3 High 1.4-6.5 Lymphocytes # (Auto) February 16, 2014 10:37am 0.87 1000/mm3 Low 1.2-3.4 Monocytes # (Auto) February 16, 2014 10:37am 0.87 1000/mm3 High 0.0-0.8 Eosinophils # (Auto) February 16, 2014 10:37am 0.26 1000/mm3 0.0-0.7 Basophils # (Auto) February 16, 2014 10:37am 0.02 1000/mm3 0.0-0.1 Differential Method February 16, 2014 10:37am Automated Urine Color April 01, 2014 7:30am yellow Urine Clarity April 01, 2014 7:30am clear Urine pH April 01, 2014 7:30am 7.0 Urine Specific [place] April 01, 2014 7:30am 1.015 Urine Protein April 01, 2014 7:30am Negative mg/dL Urine Glucose (UA) April 01, 2014 7:30am Normal mg/dL Urine Ketones April 01, 2014 7:30am Negative Urine Nitrate April 01, 2014 7:30am Negative Urine Bilirubin April 01, 2014 7:30am Negative mg/dL Urine Urobilinogen April 01, 2014 7:30am Normal mg/dL Urine Leukocyte Esterase April 01, 2014 7:30am Negative WBC/uL Urine Blood April 01, 2014 7:30am Negative KALYN/uL Sodium Level February 16, 2014 10:37am 141 mmol/L 137-145 Potassium Level February 16, 2014 10:37am 4.3 mmol/L 3.6-5.0 Chloride Level February 16, 2014 10:37am 104 mmol/L 98-107 Carbon Dioxide Level February 16, 2014 10:37am 25 mmol/L 22-30 Anion Gap February 16, 2014 10:37am 12 7-16 Blood Urea Nitrogen February 16, 2014 10:37am 9 mg/dL 7-17 Creatinine February 16, 2014 10:37am 0.49 mg/dL Low 0.52-1.04 Glomerular Filtration Rate Calc February 16, 2014 10:37am > 60 mL/min Glucose Level February 16, 2014 10:37am 99 mg/dL 70-100 Glucose 1 Hour Postprandial April 07, 2014 4:43pm 90 mg/dL 50-500 Calcium Level February 16, 2014 10:37am 9.3 mg/dL 8.4-10.2 Helicobacter pylori IgG Antibody October 01, 2013 12:00am Negative u/mL Assayed utilizing the DocuTAP DSX system. Test Performed by: [place] [address] Gas Plumber: Ean Bell M.D. Hepatitis B Surface Antigen December 02, 2013 1:25pm Negative Reference Range: Negative Test Performed by: [place] [address] Gas Plumber: Ean Bell M.D. Rubella IgG Antibody December 02, 2013 1:25pm Positive Positive results suggest immunity to Rubella infection. Test Performed by: [place] [address] Gas Plumber: Ean Bell M.D. Advance Directives Advance Directive Response Recorded Date/ Time Does the patient have a living will? No September 05, 2010 2:40am Does the patient have an advanced directive? No September 05, 2010 2:40am Power of Player Development Manager? No September 05 1 2:40am Chief Complaint and Reason for Visit Encounter Admit Date Chief Complaint Reason for V isit Discharged Inpatient June 15, 2014 10:59am POST VISIT History of section Hospital Discharge Instructions No known hospital discharge instructions. Hospital Discharge Medications Medication Dose Units Route Sig Qty Days Order Date Status Ins tructions Buspirone Hydrochloride 15 MG PO TWICE A DAY September 26, 2010 Discontinued Citalopram Hydrobromide 40 MG PO DAILY September 162010 Discontinued Ethinyl Estradiol/Abdulaziz orges 1 TAB PO DAILY September 26, 2010 Discontinued Percocet 325 mg-5 mg 1 TAB PO Q4H PRN For Pain October 11, 2010 Discontinued Hydrocodone/Apa p 5/325 1 TAB PO EVERY 4 HOURS PRN For TOOTH PAIN October 18, 2012 Discontinued Vitamin 1 TAB PO DAILY October 18, 2012 Active Sertraline Hydrochloride 25 MG PO DAILY October 18, 2012 Discontinued Acetaminophen/H ydrocodone Bi 1 TAB PO NEEDED PRN For TOOTH PAIN October 18, 2012 Discontinued Oxycodone/Apap 1 TAB PO Q4H PRN For Pain November 03, 2012 Discontinued Ibuprofen 600 MG PO EVERY 6 HOURS November 03, 2012 Discontinued Albuterol 2 PUFF INH FOUR TIMES DAILY PRN For Cough May 22, 2014 Active Budesonide/Form oterol 80/4.5 2 PUFF INH TWICE A DAY May 22, 2014 Active Oxycodone/Apap 2 TAB PO Q4H PRN For Pain June 18, 2014 Active 1 to 2 depending on pain level. Encounters Encounter Facility Location Admit Date Discharge Date Attending Provider Registered Clinical [facility] HIGH SPEED WARPER TENDER July 28, 2014 9:23am Marty Bonner Registered Clinical [facility] HIGH SPEED WARPER TENDER June 23, 2014 9:21am Jaye Bran Discharged Inpatient [facility] June 15, 2014 10:59am June 18, 2014 11:50am Marty Bonner Registered Clinical [facility] HIGH SPEED WARPER TENDER June 15, 2014 10:03am Marty Bonner Registered Clinical [facility] HIGH SPEED WARPER TENDER June 08, 2014 10:16am Marty Bonner Registered Referred [facility] HIGH SPEED WARPER TENDER June 01, 2014 8:28pm Marty Bonner Registered Clinical [facility] HIGH SPEED WARPER TENDER June 01, 2014 11:49am Marty Bonner Departed [facility] OB Check May 31, 2014 6:22pm May 31, 2014 8:00pm Marty Bonner Departed [facility] OB Check May 22, 2014 4:52pm May 22, 2014 6:12pm Edgar Ontiveros Registered Clinical [facility] HIGH SPEED WARPER TENDER May 21, 2014 9:17am Marty Bonner Registered [facility] ANJANA Sanabria [facility] HIGH SPEED WARPER TENDER May 05, 2014 9:03am Marty Bonner Departed [facility] OB Check 2014 3:54am 2014 7:55am Marty Bonner Registered Referred [facility] HIGH SPEED WARPER TENDER April 07, 2014 7:18pm Jaye Bran Registered Clinical [facility] HIGH SPEED WARPER TENDER April 07, 2014 4:35pm Jaye Bran Departed [facility] OB Check April 01, 2014 6:39am April 01, 2014 10:50am Marty Bonner Registered [facility] HIGH SPEED WARPER TENDER March 02, 2014 2:25pm Marty Bonner Registered Clinical [facility] HIGH SPEED WARPER TENDER February 19, 2014 1:30pm Jaye Bran Departed Clinical [facility] OB Check February 17, 2014 7:06pm February 17, 2014 7:35pm Marty Bonner Registered Referred [facility] [place] February 16, 2014 3:51pm Camille Cooley Discharged [facility]ring [facility] Physical Therapy February 04, 2014 1:00pm February 26, 2014 9:56am Criss Gary Registered Clinical [facility] Daniele [facility] HIGH SPEED WARPER TENDER February 02, 2014 2:27pm Marty Bonner Registered Referred [facility] HIGH SPEED WARPER TENDER January 13, 2014 6:30pm Marty Bonner Registered Clinical [facility] HIGH SPEED WARPER TENDER January 13, 2014 2:18pm Marty Bonner Registered Clinical [facility] HIGH SPEED WARPER TENDER December 16, 2013 2:41pm Marty Bonnre Registered Referred [facility] HIGH SPEED WARPER TENDER December 02, 2013 6:14pm Jaye Bran Registered Referred [facility] Referred Lab November 25, 2013 7:41pm Criss Gary Registered Clinical [facility] ANJANA Sanabria [facility] HIGH SPEED WARPER TENDER November 04, 2013 10:03am Jyae Bran Registered Clinical [facility] HIGH SPEED WARPER TENDER October 27, 2013 9:20am Jaye Bran Registered Referred [facility] Referred Lab October 01, 2013 8:28pm Criss Gary Discharged [facility]ring [facility] Physical Therapy August 08, 2013 8:30am August 15, 2013 11:27am Carlito Anne Functional Status No known functional status. Immunizations No known immunizations. Payers Payer Name Policy Type Covered Green Party Covered Green Party Id Relationship Subscriber Subscriber Id [place] [id number] CARREON [id number] SELF/SAME PATIENT RAYMUNDO CARREON [id number] Plan of Care Instructions Health Concerns: Any surgica l or post- complications Goals: Uncomplicated surgical and post- recovery Instructions: Follow printed instructions for wound care, activity, diet and your follow-up appointment with your Grease Buffer Social History Query Response Date Recorded Comment Alcohol None June 15, 2014 1:51pm Drugs None June 15, 2014 1:51pm Query Response Start Date Stop Date Comment Smoking Status Never Smoker Vital Signs Vital Reading Result Reference Range Collection Date/Time Height 5 ft June 15 1:47pm Weight 153 lb Rudy 29, 20 14 1:47pm Temperature 98.5 F 97.6 F-99.6 F June 18 5 8:00am Pulse 81 BPM 60-100 June 18, 2014 8:00am Respiration 18 RPM 12-June 18, 2014 8:00am Pulse Oximetry 97 % 95-100 June 18 8:00am Blood Pressure Systolic 111 100-140 Josh ernst 2014 8:00am Blood Pressure Diastolic 71 50-85 Aaron lora 2014 8:00am Body Mass Index n/a
--- OUTSIDE RECORDS SUMMARY | 2024-01-09 10:59 | XMS_ITS | Continuity of Care Document ---
Author Name [facility] Address [address] [place] [address] Organization [facility] Address [address] [place] [address] Care Team Providers Care Procurement Consultant Name Role Phone Out of Town, Provider Primary Care Physician Kassie vailable Allergies, Adverse Reactions, Alerts Allergen Type Severity Reaction Last Updated Verified Status cat dander Allergy September 13, 2018 Y Active latex Allergy pruritis September 13, 2018 Y Active Sulfa (Sulfonamide Antibiotics) Allergy rash September 13, 2018 Y Active Medications Active Medications Medication Dose Units Route Sig Qty Days Start Date Status Ins tructions Budesonide-Form oterol [Symbicort] 2 PUFF INHALATION TWICE A DAY May 22, 2014 Active Albuterol Sulfate [Proair Hfa inhaler] 2 PUFF INHALATION Q4H PRN For sob November 05, 2015 Active Azithromycin MG Mar 2018 Active Discontinued Medications Medication Dose Units Route Sig [...] Bitartrate 500 mg-7.5 mg] 1 TAB ORAL NEEDE D PRN For TOOTH PAIN October [...] 1 to 2 depending on pain level. Nitrofurantoi n Monohyd/M-Cry st [Macrobid] 100 MG ORAL Q12H February 10, 2017 September 13, 2018 Disconti nued Ibuprofen 800 MG ORAL THREE TIMES A DAY 9 3 February 10, 2017 September 13, 2018 Disconti nued take with food Cyclobenzapri ne 5 MG ORAL BEDTI ME 3 3 February 10, 2017 September 13, 2018 Disconti nued Take only at bedtime, do not drive or drink alcohol with med. Problem List Active Problems Medical Problem Onset Date Status Pyelonephritis complicating Active Previous section Active S/P total abdominal hysterectomy Active Pharyngitis Active Inactive/Resolved Problems Medical Problem Onset Date Status section Inactive Procedures Procedure Date Status Gram Stain September 28, 2017 completed Urine Culture September 28, 2017 completed Relevant Diagnostic Tests and/or Laboratory Data Microbiology Results Procedure Source Result Collection Date/Time Resu lt Date/Time Gram Stain Vaginal No results entered September 28, 2017 2: 50pm Urine Culture Ur,Clean Catch No results entered September 28, 2017 2:50pm Hospital Discharge Instructions Additional Discharge Instructions Please follow up with your primary MD as scheduled next week. You have a viral upper respiratory infection (URI). Antibiotics do not work for viral infections. There is no specific treatment that has been shown to decrease the symptoms or how long they last. The usual course of these illnesses is possibly some mild fever at the beginning, with 2-3 days of sore throat, followed by congestion, runny nose and dry cough. The cough from a viral URI can last up to 2 weeks and becomes more wet and productive towards the end. Green or dark yellow mucus does not indicate a bacterial infection and although it may be diagnosed as bronchitis, it doesn't require antibiotics unless you have underlying medical illnesses such as emphysema. If you smoke, symptoms can last even longer. You may have sinus pain and pressure with any viral URI but studies show that even with a diagnosis of sinusitis, antibiotics do not cure or shorten the illness. Things that you can do to feel better: 1. If you smoke, try to stop. If you need help call the [place] Quit Line 1-838.187.2434. 2. Get enough rest. 3. Drink plenty of fluids. 4. Acetaminophen or ibuprofen for pain or fever. Be sure to follow the dose instructions on the package; taking more is NOT more effective and can be harmful. 5. Nasal saline drops, or netti pot / nasal irrigation can be very helpful for the nasal discharge and sinus congestion symptoms. You can also use an over the counter nasal decongestant spray but be careful not to use more than 4-5 days. Longer use can be habit forming and worsen your congestion. 6. Good hand hygiene (washing with soap and water, using had dry cleaner helper) is the best way to prevent spreading your illness to others. 7. Mucinex (guaiafenesin) to thin nasal secretions. 8. Pseudophedrine / phenylephrine to help open airways 9. Fluticasone (Flonase) to help open airways If you do not see any improvement in another 5-7 days, or develop any new symptoms, any worsening, shortness of breath, chest pain, or severe pain or fever please contact your PCP for re-evaluation or seek ER if indicated. Instruction/Education Provided Nilesh Albert at, Adult ([facility]) Hospital Discharge Medications Medication Dose Units Route [...] Monohyd/M-Cryst 100 MG ORAL Q12H Augu 2016 Discontinu ed Ibuprofen 800 MG ORAL THREE TIMES A DAY 9 3 February 10, 2017 Discontinu ed take with food Cyclobenzaprine 5 MG ORAL BEDTIME 3 February 10, 2017 Discontinu ed Take only at bedtime, do not drive or drink alcohol with med. Azithromycin MG Aug Active Encounters Encounter Facility Location Admit/Visit Date Discharge/Departure Date Attending Provider Departed Emergency [facility] September 13, 2018 5:18pm September 13, 2018 6:23pm Departed Referred [facility] OBGYN September 28, 2017 7:25pm September 28, 2017 7:26pm Jaye Bran Functional Status No known functional status. Immunizations No known immunizations. Payers Payer Name Policy Type Covered Libertarian Covered Libertarian Id Relationship Subscriber Subscriber Id MEDICAID [facility] Medicaid RAYMUNDO CARREON [id number] Self/Same as Patient RAYMUNDO CARREON [id number] SELF PAY Personal [place] MEDICAID (DO NOT USE) Medicaid RAYMUNDO CARREON [id number] Self/Same as Patient RAYMUNDO CARREON [id number] Plan of Care Instructions Sore Throat, Adult (DC) Social History No known social history. Vital Signs Vital Reading Result Reference Range Collection Date/Time Height 5 ft September 13, 2018 5:37pm Weight 69.853 kg September 13, 2018 5:37pm Temperature 98.1 F 97.6 F-99.6 F September 13, 2018 5:37pm Pulse 80 BPM 60-100 September 13, 2018 5:37pm Respiration 16 RPM 12-24 September 13, 2018 5:37pm Pulse Oximetry 100 % 95-100 September 13 9 5:37pm Blood Pressure Systolic 112 100-140 [facility] 2018 5:37pm Blood Pressure Diastolic 64 50-85 [facility] 2018 5:37pm Body Mass Index 30.0 September 13 5:37pm
--- OUTSIDE RECORDS SUMMARY | 2024-01-09 10:59 | XMS_ITS | Continuity of Care Document ---
Author Name [facility] Address [address] [place] [address] Organization [facility] Address [address] [place] [address] Care Team Providers [place] Library Director Name Role Phone Out of Town, Provider Primary Care Physician Kassie vailable Allergies, Adverse Reactions, Alerts Allergen Type Severity Reaction Last Updated Verified Status latex Allergy pruritis January 07, 2016 Y Active Sulfa (Sulfonamide Antibiotics) Allergy rash January 07, 2016 Y Active Medications Active Medications Medication Dose Units Route Sig Qty Days Start Date Status Instructions Budesonide-Formot dilip [Symbicort] 2 puff Inhalation TWICE A DAY May 22, 2014 Active Albuterol Sulfate [Proair Hfa inhaler] 2 puff INHALATION Q4H PRN For sob November 05, 2015 Active Nitrofurantoin Monohyd/M-Cryst [Macrobid] 100 mg ORAL Q12H February 10, 2017 Active Ibuprofen [...] Status Instructions Buspirone Hydrochloride [Buspirone HCl] 15 mg ORAL TWICE A DAY September 26, 2010 October 18, 2012 Disconti nued Citalopram Hydrobromide [Citalopram] 40 mg ORAL DAILY September 26, 2010 October 18, 2012 Disconti nued Ethinyl Estradiol/Lev onorges [Seasonale 30 Mcg-0.15 mg] 1 tab ORAL DAILY September 26, 2010 October 18, 2012 Disconti nued Percocet 325 mg-5 mg 1 tab ORAL Q4H PRN For Pain October 11, 2010 October 18, 2012 Disconti nued Hydrocodone-A cetaminophen 1 tab ORAL EVERY 4 HOURS PRN For TOOTH PAIN October 18, 2012 October 18, 2012 Disconti nued Sertraline Hydrochloride [SERTRALINE 25 MG TAB] 25 mg ORAL DAILY October 18, 2012 May 22, 2014 Disconti nued Acetaminophen /Hydrocodone Bi [APAP/Hydroco done Bitartrate 500 mg-7.5 mg] 1 tab ORAL NEEDED PRN For TOOTH PAIN October 18, 2012 October 31, 2012 Disconti nued Oxycodone-Santosh taminophen 1 tab ORAL Q4H PRN For Pain November 03, 2012 May 22, 2014 Disconti nued Ibuprofen 600 mg ORAL EVERY 6 HOURS November 03, 2012 May 22, 2014 Disconti nued Acetaminophen [Mapap (Acetaminophe n)] 650 mg ORAL Q4H PRN For Mild Pain 0 January 09, 2016 February 10, 2017 Disconti nued Oxycodone-Santosh taminophen 1 - 2 tab ORAL Q6H PRN For Pain 15 January 09, 2016 February 10, 2017 Disconti nued Docusate Sodium [Doc-Q-Lace] 100 mg ORAL TWICE A DAY 60 January 09, 2016 February 10, 2017 Disconti nued Ibuprofen 600 mg ORAL Q6H PRN For Mild Pain 60 January 09, 2016 February 10, 2017 Disconti nued Oxycodone-Santosh taminophen 2 tab ORAL Q4H PRN For Pain 12 January [...] w/o Contrast February 10, 2017 complete d TISSUE EXAM BY PATHOLOGIST August 03, 2016 act julius EXC TR-EXT B9+ARMEN 1.1-2 CM August 03, [address] Abd Pel w/ Contrast July 24, [address] ABD & PELV W/CONTRAST July 24, 2016 active Urine Culture May 12, 2016 completed Reason for Referral Reason for Referral Date Referral was Provided Provider Office Contact Location Relevant Diagnostic Tests and/or Laboratory Data Laboratory Results Test Date/Time Result Interp. Ref. Range Result Co mment White Blood Count February 10, 2017 5:50pm [...] February 10, 2017 5:50pm Automated Urine RBC May 12, 2016 4:54pm None seen /hpf Urine WBC May 12, 2016 4:54pm 20-40 /hpf High Urine Squamous Epithelial Cells May 12, 2016 4:54pm 1+ /hpf Urine Bacteria May 12, 2016 4:54pm 3+ /hpf High Urine Mucus May 12, 2016 4:54pm Present Urine Culture Done May 12, 2016 4:54pm Yes URINE SPECIMEN CULTURED Sodium Level February 10, 2017 5:50pm 143 [...] February 10, 2017 5:50pm 79 U/L 23-300 Microbiology Results Procedure Source Result Collection Date/Time Resu lt Date/Time Urine Culture Ur,Clean Catch Escherichia Coli May 12, 2016 9:44pm May 15, 2016 7:24am Advance Directives Advance Directive Response Recorded Date/ Time Do we have a copy on file here at [facility]? No February 10, 2017 5:36pm Does patient have an Advanced Directive? No September 05, 2010 2:40am Pt has a Living Will? No September 05, 2010 2:40am Pt has a Power of Biomedical Engineer? No Zaid 2010 2:40am Chief Complaint and Reason for Visit Encounter Admit Date Chief Complaint Reason for V murray Departed Emergency February 10, 2017 4:55pm [facility] Hospital Discharge Instructions No known hospital discharge instructions. Hospital Discharge Medications Medication Dose Units Route Sig Qty Days Order Date Status Instructions Buspirone Hydrochloride 15 mg ORAL TWICE A DAY September 26, 2010 Discontinu ed Citalopram Hydrobromide 40 mg ORAL DAILY September 162010 Discontinu ed Ethinyl Estradiol/Abdulaziz orges 1 tab ORAL DAILY September 26, 2010 Discontinu ed Percocet 325 mg-5 mg 1 tab ORAL Q4H PRN For Pain October 11, 2010 Discontinu ed Hydrocodone-Santosh taminophen 1 tab ORAL EVERY 4 HOURS PRN For TOOTH PAIN October 18, 2012 Discontinu ed Sertraline Hydrochloride 25 mg ORAL DAILY October 18, 2012 Discontinu ed Acetaminophen/H ydrocodone Bi 1 tab ORAL NEEDED PRN For TOOTH PAIN October 18, 2012 Discontinu ed Oxycodone-Aceta minophen 1 tab ORAL Q4H PRN For Pain November 03, 2012 Discontinu ed Ibuprofen 600 mg ORAL EVERY 6 HOURS November 03, 2012 Discontinu ed Budesonide-Form oterol 2 puff Inhalation TWICE A DAY May 22, 2014 Active Albuterol Sulfate 2 puff INHALATION Q4H PRN For sob November 05, 2015 Active Acetaminophen 650 mg ORAL Q4H PRN For Mild Pain 0 January 09, 2016 Discontinu ed Oxycodone-Aceta minophen 1 - 2 tab ORAL Q6H PRN For Pain 15 January 09, 2016 Discontinu ed Docusate Sodium 100 mg ORAL TWICE A DAY 60 January 09, 2016 Discontinu ed Ibuprofen 600 mg ORAL Q6H PRN For Mild Pain 60 January 09, 2016 Discontinu ed Oxycodone-Aceta minophen 2 tab ORAL Q4H PRN For Pain 12 January 10, 2016 Discontinu ed 1 to 2 depending on pain level. Nitrofurantoin Monohyd/M-Cryst 100 mg ORAL Q12H Janu 2016 Active Ibuprofen 800 MG ORAL THREE TIMES A DAY 9 3 February 10, 2017 Active take with food Cyclobenzaprine 5 MG ORAL BEDTIME 3 3 February 10, 2017 Active Take only at bedtime, do not drive or drink alcohol with med. Encounters Encounter Facility Location Admit/Visit Date Discharge/Departure Date Attending Provider Departed Emergency [facility] Emergency Department February 10, 2017 4:55pm February 10, 2017 7:20pm Departed Surgical Day Care [facility] Surgical Services August 03, 2016 6:55am August 03, 2016 9:55am Monico Santizo Registered Clinical [facility] DI [facility] July 24, 2016 9:41am Monico Santizo Registered Referred [facility] Urgent Care [facility] May 12, 2016 8:26pm Monserrat López Registered Referred [facility] Urgent Care [facility] May 12, 2016 5:10pm Monserrat López Functional Status No known functional status. Immunizations No known immunizations. Payers Payer Name Policy Type Covered Republican Covered Republican Id Relationship Subscriber Subscriber Id [place] Medicaid RAYMUNDO CARREON [id number] Self/Same as Patient RAYMUNDO CARREON [id number] SELF PAY Personal [place] MEDICAID (DO NOT USE) Medicaid RAYUMNDO CARREON [id number] Self/Same as Patient RAYMUNDO CARREON [id number] Plan of Care Instructions Back Pain Relieve Urinary Tract Infecs Women Social History Query Response Date Recorded Comment Alcohol None June 15, 2014 1:51pm Drugs None June 15, 2014 1:51pm Living Situation With Family August 03, 2016 7:10am Query Response Start Date Stop Date Smoking Status Former smoker Vital Signs Vital Reading Result Reference Range Collection Date/Time Height 5 ft August 03 7:10am Weight 72.121 kg February 10, 2017 4:57pm Temperature 98.5 F 97.6 F-99.6 F February 10 7 4:57pm Pulse 68 BPM 60-100 February 10, 2017 7:17pm Respiration 20 RPM -February 10, 2017 4:57pm Pulse Oximetry 100 % 95-100 February 10 7:17pm Blood Pressure Systolic 97 100-140 Jan 2016 7:17pm Blood Pressure Diastolic 54 50-85 Jan [facility] 2016 7:17pm Body Mass Index n/a
--- OUTSIDE RECORDS SUMMARY | 2024-01-09 10:59 | XMS_ITS | Continuity of Care Document ---
Author Name [facility] Address [address] [place] [address] Organization [facility] Address [address] [place] [address] Care Team Providers Care Lamps Tester And Inspector Name Role Phone Carlito Anne Primary Care Physician Allergies, Adverse Reactions, Alerts Allergen Type Severity Reaction Last Updated Verified Status Latex Allergy Moderate pruritis August 28, 2014 Y Active SULFA (sulfonamide) Allergy Moderate rash August 28, 2014 Y Active Medications Active Medications Medication Dose Units Route Sig Qty Days Start Date Discontinued Date Status Instructions Vitamin 1 TAB ORAL DAILY October 18, 2012 Active Albuterol 2 PUFF INHALATI ON FOUR TIMES DAILY PRN For Cough Decembe r 2013 Active Budesonide/ Formoterol 80/4.5 2 PUFF INHALATI ON TWICE A DAY PRN For Shortn ess Of Breath Decembe r 2013 Active Oxycodone/A pap 2 TAB ORAL Q4H PRN For Pain August 28, 2014 Active 1 to 2 depending on [...] Status Previous section Active Pyelonephritis complicating Active Inactive/Resolved Problems Medical Problem Onset Date Status section Inactive Procedures Procedure Date Status Provider(s) CT ABD PEL WITHOUT CONTRAST May 03, 2015 complete d Urine Culture February 10, 2015 completed Urine Culture October 27, 2014 completed OBG Tubal Ligation Laparoscopic w/.. August 28, 2014 co mpleted Marty Bonner OBCheyanne Caesarean Section June 15, 2014 completed T Marty valdes Group B Streptococcus Screen (TAYLA) June 01, 2014 c ompleted US 3RD TRIMESTER SCREENING May 05, 2014 active Relevant Diagnostic Tests and/or Laboratory Data Laboratory Results Test Date/Time Result Interp. Ref. Range Result Comment White Blood Count May 03, 2015 11:35am 8.03 1000/mm3 4.8-10.8 Red Blood Count May 03, 2015 11:35am 5.05 M/mm3 4.20-5.40 Hemoglobin May 03, 2015 11:35am 13.2 g/dL 12.0-16.0 Hematocrit May 03, 2015 11:35am 40.1 % 37-47 Mean Corpuscular Volume May 03, 2015 11:35am 79.4 fL Low 81.0-99.0 Mean Corpuscular Hemoglobin May 03, 2015 11:35am 26.1 pg Low 27-31 Mean Corpuscular Hemoglobin Concent May 03, 2015 11:35am 32.9 g/dL Low 33-37 Red Cell Distribution Width May 03, 2015 11:35am 13.0 % 11.5-14.5 Platelet Count May 03, 2015 11:35am 114 1000/mm3 Low 140-440 Mean Platelet Volume June 16, 2014 7:30am 13.8 fL High 7.4-10.4 Neutrophils (%) (Auto) May 03, 2015 11:35am 71.9 % 40.0-72.0 Lymphocytes (%) (Auto) May 03, 2015 11:35am 17.4 % 17-45 Monocytes (%) (Auto) May 03, 2015 11:35am 5.7 % 3-11 Eosinophils (%) (Auto) May 03, 2015 11:35am 4.6 % High 0-3 Basophils (%) (Auto) May 03, 2015 11:35am 0.4 % 0-1 Neutrophils # (Auto) May 03, 2015 11:35am 5.77 1000/mm3 1.4-6.5 Lymphocytes # (Auto) May 03, 2015 11:35am 1.40 1000/mm3 1.2-3.4 Monocytes # (Auto) May 03, 2015 11:35am 0.46 1000/mm3 0.0-0.8 Eosinophils # (Auto) May 03, 2015 11:35am 0.37 1000/mm3 0.0-0.7 Basophils # (Auto) May 03, 2015 11:35am 0.03 1000/mm3 0.0-0.1 Differential Method May 03, 2015 11:35am Automated Urine RBC April 28, 2015 3:29pm None seen /hpf Urine WBC April 28, 2015 3:29pm 0-2 /hpf Urine Squamous Epithelial Cells April 28, 2015 3:29pm 3+ /hpf Urine Bacteria April 28, 2015 3:29pm 1+ /hpf High Urine Mucus April 28, 2015 3:29pm Present Urine Culture Done April 28, 2015 3:29pm No CULTURE NOT INDICATED. Sodium Level May 03, 2015 11:35am 140 mmol/L 137-145 Potassium Level May 03, 2015 11:35am 4.2 mmol/L 3.6-5.0 Chloride Level May 03, 2015 11:35am 104 mmol/L 98-107 Carbon Dioxide Level May 03, 2015 11:35am 26 mmol/L 22-30 Anion Gap May 03, 2015 11:35am 10 7-16 Blood Urea Nitrogen May 03, 2015 11:35am 13 mg/dL 7-17 Creatinine May 03, 2015 11:35am 0.51 mg/dL Low 0.52-1.04 Glomerular Filtration Rate Calc May 03, 2015 11:35am > 60 mL/min Glucose Level May 03, 2015 11:35am 86 mg/dL 70-100 Total Bilirubin May 03, 2015 11:35am 0.6 mg/dL 0.2-1.3 Direct Bilirubin May 03, 2015 11:35am 0 mg/dL 0-0.3 Aspartate Amino Transf (AST/SGOT) May 03, 2015 11:35am 18 U/L 14-36 Alanine Aminotransferase (ALT/SGPT) May 03, 2015 11:35am 36 U/L 9-52 Total Protein May 03, 2015 11:35am 7.0 g/dL 6.3-8.2 Albumin May 03, 2015 11:35am 4.5 g/dL 3.5-5.0 Alkaline Phosphatase May 03, 2015 11:35am 66 U/L 38-126 Lipase May 03, 2015 11:35am 77 U/L 23-300 Microbiology Results Procedure Source Result Collection Date/Time Result Date/Time Group B Streptococcus Screen (TAYLA) Vaginal/Recta l No results entered June 01, 2014 11:55am Urine Culture Ur,Clean Catch Escherichia Coli October 27, 2014 10:20am October 29, 2014 7:27am Urine Culture Ur,Clean Catch No results entered February 10, 2015 12:06am Advance Directives Advance Directive Response Recorded Date/ Time Does the patient have a living will? No September 05, 2010 2:40am Does the patient have an advanced directive? No September 05, 2010 2:40am Power of Conformal Pad Former? No September 05 2:40am Hospital Discharge Instructions No known hospital [...] TOOTH PAIN October 18, 2012 Discontinue d Vitamin 1 TAB ORAL DAILY October 18, 2012 Active Sertraline Hydrochloride 25 MG ORAL DAILY October 18, 2012 Discontinue d Acetaminophen/ Hydrocodone Bi 1 TAB ORAL NEEDED PRN For TOOTH PAIN October 18, 2012 Discontinue d Oxycodone/Apap 1 TAB ORAL Q4H PRN For Pain November 03, 2012 Discontinue d Ibuprofen 600 MG ORAL EVERY 6 HOURS November 03, 2012 Discontinue d Albuterol 2 PUFF INHALATION FOUR TIMES DAILY PRN For Cough May 22, 2014 Active Budesonide/For moterol 80/4.5 2 PUFF INHALATION TWICE A DAY PRN For Shortnes s Of Breath May 22, 2014 Active Oxycodone/Apap 2 TAB ORAL Q4H PRN For Pain August 28, 2014 Active 1 to 2 depending on pain level. Encounters Encounter Facility Location Admit Date Discharge Date Attending Provider Departed Emergency [facility] Emergency Department May 03, 2015 10:31am May 03, 2015 1:37pm Registered Referred [facility] [place] April 28, 2015 9:03pm Paulette Yoon Registered Referred [facility] February 10, 2015 3:41pm Carlito Anne Departed Emergency [facility] Emergency Department January 23, 2015 9:28pm January 23, 2015 9:52pm Registered Referred [facility] INSURANCE LOSS ADJUSTER October 27, 2014 2:14pm Jaye Bran Registered Clinical [facility] INSURANCE LOSS ADJUSTER October 27, 2014 9:56am Marty Bonner Registered Clinical [facility] INSURANCE LOSS ADJUSTER September 17, 2014 9:09am Marty Bonner Registered Surgical Day Care [facility] Surgical Services August 28, 2014 11:46am Marty Bonner Registered Clinical [facility] INSURANCE LOSS ADJUSTER August 17, 2014 10:48am Marty Bonner Registered Clinical [facility] INSURANCE LOSS ADJUSTER July 28, 2014 9:23am Marty Bonner Registered Clinical [facility] INSURANCE LOSS ADJUSTER June 23, 2014 9:21am Jaye Bran Discharged Inpatient [facility] June 15, 2014 10:59am June 18, 2014 11:50am Marty Bonner Registered Clinical [facility] INSURANCE LOSS ADJUSTER June 15, 2014 10:03am Marty Bonner Registered Clinical [facility] INSURANCE LOSS ADJUSTER June 08, 2014 10:16am Marty Bonner Registered Referred [facility] INSURANCE LOSS ADJUSTER June 01, 2014 8:28pm Marty Bonner Registered Clinical [facility] INSURANCE LOSS ADJUSTER June 01, 2014 11:49am Marty Bonner Departed [facility] OB Check May 31, 2014 6:22pm May 31, 2014 8:00pm Marty Bonner Departed [facility] OB Check May 22, 2014 4:52pm May 22, 2014 6:12pm Edgar Ontiveros Registered [facility] INSURANCE LOSS ADJUSTER May 21, 2014 9:17am Marty Bonner Registered [facility] ANJANA Sanabria [facility] INSURANCE LOSS ADJUSTER May 05, 2014 9:03am Marty Bonner Functional Status Query Response Date Recorded Comment Speech Pattern Clear Appropriate August 28, 2014 12:30pm Immunizations No known immunizations. Payers Payer Name Policy Type Covered Democrat Covered Democrat Id Relationship Subscriber Subscriber Id [place] MED[place] Medicaid RAYMUNDO CARREON [id number] SELF/SAME PATIENT RAYMUNDO CARREON [id number] Plan of Care No known plan of care. Social History Query Response Date Recorded Comment Alcohol None June 15, 2014 1:51pm Drugs None June 15, 2014 1:51pm Living Situation With Family August 28, 2014 12:30pm Query Response Start Date Stop Date Smoking Status Never Smoker Vital Signs Vital Reading Result Reference Range Collection Date/Time Height 5 ft September 17, 2014 9 :09am Weight n/a Temperature 99.0 F 97.6 F-99.6 F August 28, 2014 5:10pm Pulse 72 BPM 60-100 August 28, 2014 5:10pm Respiration 20 RPM -August 28, 2014 5:10pm Pulse Oximetry 96 % 95-100 August 28 5 5:10pm Blood Pressure Systolic 108 100-140 [facility] 2014 5:10pm Blood Pressure Diastolic 56 50-85 [facility] 2014 5:10pm Body Mass Index n/a
--- OUTSIDE RECORDS SUMMARY | 2024-01-09 10:59 | XMS_ITS | Continuity of Care Document ---
Author Name [facility] Organization [facility] Care Team Providers Care Electron Beam Welding Machine Operator Name Role Phone Carlito Anne Primary Care Physician [phone] Marty Bonner Attending Physician Allergies, Adverse Reactions, Alerts Allergen Type Severity Reaction Last Updated Verified Status Latex Allergy Moderate pruritis 2014 Y Activ e SULFA (sulfonamide) Allergy Moderate rash 2014 Y Active Medications Medication Dose Units [...] 25 MG PO DAILY October 18, 2012 Active Acetaminophen /Hydrocodone Bi 1 TAB PO NEEDED PRN For TOOTH PAIN October 18, 2012 October 31, 2012 Disconti nued Oxycodone/Apa p 1 TAB PO Q4H PRN For Pain November 03, 2012 Active Ibuprofen 600 MG PO EVERY 6 HOURS November 03, 2012 Active Problem List Medical Problem Onset Date Status Pyelonephritis complicating Active section Inactive Procedures Procedure Date Status Provider(s) EMERGENCY DEPT VISIT December 21, 2012 active EMERGENCY DEPT VISIT June 24, 2013 active EMERGENCY DEPT VISIT May 02, 2013 active EMERGENCY DEPT VISIT July 31, 2012 active COMPLETE CBC W/AUTO DIFF WBC December 21, 2012 active ASSAY OF UREA NITROGEN December 21, 2012 active ASSAY GLUCOSE BLOOD QUANT December 21, 2012 active ASSAY OF CREATININE December 21, 2012 active ASSAY OF ETHANOL December 21, 2012 active ASSAY OF ACETAMINOPHEN December 21, 2012 active URINE TEST December 21, 2012 active URINALYSIS AUTO W/O SCOPE April 01, 2014 active ELECTROLYTE PANEL December 21, 2012 active TRANSVAGINAL US OBSTETRIC November 04, 2013 active OB US FOLLOW-UP PER FETUS September 12, 2012 active OB US >/= 14 WKS SNGL FETUS February 02, 2014 active US EXAM BREAST(S) June 27, 2013 active X-RAY EXAM OF ANKLE June 24, 2013 active X-RAY EXAM OF HIP June 27, 2013 active X-RAY EXAM OF SHOULDER May 02, 2013 active ROUTINE VENIPUNCTURE December 21, 2012 active Urine Culture February 16, 2014 completed US 2ND TRIMESTER SCREENING February 02, 2014 active EMERGENCY DEPT VISIT December 21, 2012 active EMERGENCY DEPT VISIT June 24, 2013 active EMERGENCY DEPT VISIT May 02, 2013 active EMERGENCY DEPT VISIT July 31, 2012 active COMPLETE CBC W/AUTO DIFF WBC December 21, 2012 active ASSAY OF UREA NITROGEN December 21, 2012 active ASSAY GLUCOSE BLOOD QUANT December 21, 2012 active ASSAY OF CREATININE December 21, 2012 active ASSAY OF ETHANOL December 21, 2012 active ASSAY OF ACETAMINOPHEN December 21, 2012 active URINE TEST December 21, 2012 active URINALYSIS AUTO W/O SCOPE April 01, 2014 active ELECTROLYTE PANEL December 21, 2012 active TRANSVAGINAL US OBSTETRIC November 04, 2013 active OB US FOLLOW-UP PER FETUS September 12, 2012 active OB US >/= 14 WKS SNGL FETUS February 02, 2014 active US EXAM BREAST(S) June 27, 2013 active X-RAY EXAM OF ANKLE June 24, 2013 active X-RAY EXAM OF HIP June 27, 2013 active X-RAY EXAM OF SHOULDER May 02, 2013 active ROUTINE VENIPUNCTURE December 21, 2012 active Urine Culture November 25, 2013 completed US TRANSVAGINAL OB November 04, 2013 active EMERGENCY DEPT VISIT December 21, 2012 active EMERGENCY DEPT VISIT June 24, 2013 active EMERGENCY DEPT VISIT May 02, 2013 active EMERGENCY DEPT VISIT July 31, 2012 active COMPLETE CBC W/AUTO DIFF WBC December 21, 2012 active ASSAY OF UREA NITROGEN December 21, 2012 active ASSAY GLUCOSE BLOOD QUANT December 21, 2012 active ASSAY OF CREATININE December 21, 2012 active ASSAY OF ETHANOL December 21, 2012 active ASSAY OF ACETAMINOPHEN December 21, 2012 active URINE TEST December 21, 2012 active URINALYSIS AUTO W/O SCOPE April 01, 2014 active ELECTROLYTE PANEL December 21, 2012 active TRANSVAGINAL US OBSTETRIC November 04, 2013 active OB US FOLLOW-UP PER FETUS September 12, 2012 active OB US >/= 14 WKS SNGL FETUS February 02, 2014 active US EXAM BREAST(S) June 27, 2013 active X-RAY EXAM OF ANKLE June 24, 2013 active X-RAY EXAM OF HIP June 27, 2013 active X-RAY EXAM OF SHOULDER May 02, 2013 active ROUTINE VENIPUNCTURE December 21, 2012 active HIP 2VW MIN RT June 27, 2013 completed EMERGENCY DEPT VISIT December 21, 2012 active EMERGENCY DEPT VISIT June 24, 2013 active EMERGENCY DEPT VISIT May 02, 2013 active EMERGENCY DEPT VISIT July 31, 2012 active COMPLETE CBC W/AUTO DIFF WBC December 21, 2012 active ASSAY OF UREA NITROGEN December 21, 2012 active ASSAY GLUCOSE BLOOD QUANT December 21, 2012 active ASSAY OF CREATININE December 21, 2012 active ASSAY OF ETHANOL December 21, 2012 active ASSAY OF ACETAMINOPHEN December 21, 2012 active URINE TEST December 21, 2012 active URINALYSIS AUTO W/O SCOPE April 01, 2014 active ELECTROLYTE PANEL December 21, 2012 active TRANSVAGINAL US OBSTETRIC November 04, 2013 active OB US FOLLOW-UP PER FETUS September 12, 2012 active OB US >/= 14 WKS SNGL FETUS February 02, 2014 active US EXAM BREAST(S) June 27, 2013 active X-RAY EXAM OF ANKLE June 24, 2013 active X-RAY EXAM OF HIP June 27, 2013 active X-RAY EXAM OF SHOULDER May 02, 2013 active ROUTINE VENIPUNCTURE December 21, 2012 active US BREAST ACUTE RT June 27, 2013 completed EMERGENCY DEPT VISIT December 21, 2012 active EMERGENCY DEPT VISIT June 24, 2013 active EMERGENCY DEPT VISIT May 02, 2013 active EMERGENCY DEPT VISIT July 31, 2012 active COMPLETE CBC W/AUTO DIFF WBC December 21, 2012 active ASSAY OF UREA NITROGEN December 21, 2012 active ASSAY GLUCOSE BLOOD QUANT December 21, 2012 active ASSAY OF CREATININE December 21, 2012 active ASSAY OF ETHANOL December 21, 2012 active ASSAY OF ACETAMINOPHEN December 21, 2012 active URINE TEST December 21, 2012 active URINALYSIS AUTO W/O SCOPE April 01, 2014 active ELECTROLYTE PANEL December 21, 2012 active TRANSVAGINAL US OBSTETRIC November 04, 2013 active OB US FOLLOW-UP PER FETUS September 12, 2012 active OB US >/= 14 WKS SNGL FETUS February 02, 2014 active US EXAM BREAST(S) June 27, 2013 active X-RAY EXAM OF ANKLE June 24, 2013 active X-RAY EXAM OF HIP June 27, 2013 active X-RAY EXAM OF SHOULDER May 02, 2013 active ROUTINE VENIPUNCTURE December 21, 2012 active ANKLE 3VW MIN RT June 24, 2013 completed EMERGENCY DEPT VISIT December 21, 2012 active EMERGENCY DEPT VISIT June 24, 2013 active EMERGENCY DEPT VISIT May 02, 2013 active EMERGENCY DEPT VISIT July 31, 2012 active COMPLETE CBC W/AUTO DIFF WBC December 21, 2012 active ASSAY OF UREA NITROGEN December 21, 2012 active ASSAY GLUCOSE BLOOD QUANT December 21, 2012 active ASSAY OF CREATININE December 21, 2012 active ASSAY OF ETHANOL December 21, 2012 active ASSAY OF ACETAMINOPHEN December 21, 2012 active URINE TEST December 21, 2012 active URINALYSIS AUTO W/O SCOPE April 01, 2014 active ELECTROLYTE PANEL December 21, 2012 active TRANSVAGINAL US OBSTETRIC November 04, 2013 active OB US FOLLOW-UP PER FETUS September 12, 2012 active OB US >/= 14 WKS SNGL FETUS February 02, 2014 active US EXAM BREAST(S) June 27, 2013 active X-RAY EXAM OF ANKLE June 24, 2013 active X-RAY EXAM OF HIP June 27, 2013 active X-RAY EXAM OF SHOULDER May 02, 2013 active ROUTINE VENIPUNCTURE December 21, 2012 active SHOULDER 2VW MIN RT May 02, 2013 completed EMERGENCY DEPT VISIT December 21, 2012 active EMERGENCY DEPT VISIT June 24, 2013 active EMERGENCY DEPT VISIT May 02, 2013 active EMERGENCY DEPT VISIT July 31, 2012 active COMPLETE CBC W/AUTO DIFF WBC December 21, 2012 active ASSAY OF UREA NITROGEN December 21, 2012 active ASSAY GLUCOSE BLOOD QUANT December 21, 2012 active ASSAY OF CREATININE December 21, 2012 active ASSAY OF ETHANOL December 21, 2012 active ASSAY OF ACETAMINOPHEN December 21, 2012 active URINE TEST December 21, 2012 active URINALYSIS AUTO W/O SCOPE April 01, 2014 active ELECTROLYTE PANEL December 21, 2012 active TRANSVAGINAL US OBSTETRIC November 04, 2013 active OB US FOLLOW-UP PER FETUS September 12, 2012 active OB US >/= 14 WKS SNGL FETUS February 02, 2014 active US EXAM BREAST(S) June 27, 2013 active X-RAY EXAM OF ANKLE June 24, 2013 active X-RAY EXAM OF HIP June 27, 2013 active X-RAY EXAM OF SHOULDER May 02, 2013 active ROUTINE VENIPUNCTURE December 21, 2012 active Relevant Diagnostic Tests and/or Laboratory Data Test Date/Time Result Interp. Ref. Range Result Co mment White Blood Count April 07, 2014 4:43pm 10.39 1000/mm3 4.8-10.8 Red Blood Count April 07, 2014 4:43pm 4.13 M/mm3 Low 4.20-5.40 Hemoglobin April 07, 2014 4:43pm 11.8 g/dL Low 12.0-16.0 Hematocrit April 07, 2014 4:43pm 35.3 % Low 37-47 Mean Corpuscular Volume April 07, 2014 4:43pm 85.5 fL 81.0-99.0 Mean Corpuscular Hemoglobin April 07, 2014 4:43pm 28.6 pg 27-31 Mean Corpuscular Hemoglobin Concent April 07, 2014 4:43pm 33.4 g/dL 33-37 Red Cell Distribution Width April 07, 2014 4:43pm 14.1 % 11.5-14.5 Platelet Count April 07, 2014 4:43pm 109 1000/mm3 Low 140-440 Mean Platelet Volume April 07, 2014 4:43pm 13.9 fL High 7.4-10.4 Neutrophils (%) (Auto) February [...] April 01, 2014 7:30am 7.0 Urine Specific [place] April 01, 2014 7:30am 1.015 Urine Protein [...] 2013 12:00am Negative u/mL Assayed utilizing the [employer] DSX system. Test Performed by: [place] [address] Domestic Freight Forwarder: Ean Bell M.D. Hepatitis B Surface Antigen December 02, 2013 1:25pm Negative Reference Range: Negative Test Performed by: [place] [address] Domestic Freight Forwarder: Ean Bell M.D. Rubella IgG Antibody December 02, 2013 1:25pm Positive Positive results suggest immunity to Rubella infection. Test Performed by: [place] [address] Domestic Freight Forwarder: Ean Bell M.D. Advance Directives Advance Directive Response Recorded Date/ Time Does the patient have a living will? No September 05, 2010 2:40am Does the patient have an advanced directive? No September 05, 2010 2:40am Power of Exercise Instruct? No September 05 1 2:40am Chief Complaint and Reason for Visit Encounter Admit Date Chief Complaint Reason for V isit Departed Clinical 2014 3:54am [facility] Hospital Discharge Instructions No known hospital discharge instructions. Hospital Discharge Medications Medication Dose Units Route Sig Qty Days Order Date Status Instructions Buspirone Hydrochloride 15 MG PO TWICE A DAY September 26, 2010 Discontinued Citalopram Hydrobromide 40 MG PO DAILY September 26, 2010 Discontinued Ethinyl Estradiol/Levono rges 1 TAB PO DAILY September 26, 2010 Discontinued Percocet 325 mg-5 mg 1 TAB PO Q4H PRN For Pain October 11, 2010 Discontinued Hydrocodone/Apap 5/325 1 TAB PO EVERY 4 HOURS PRN For TOOTH PAIN October 18, 2012 Discontinued Vitamin 1 TAB PO DAILY October 18, 2012 Active Sertraline Hydrochloride 25 MG PO DAILY October 18, 2012 Active Acetaminophen/Hy drocodone Bi 1 TAB PO NEEDED PRN For TOOTH PAIN October 18, 2012 Discontinued Oxycodone/Apap 1 TAB PO Q4H PRN For Pain November 03, 2012 Active Ibuprofen 600 MG PO EVERY 6 HOURS November 03, 2012 Active Encounters Encounter Facility Location Admit Date Discharge Date Attending Provider Departed [facility] OB Check 2014 3:54am 2014 7:55am Marty Bonner Registered [facility] DOCTOR ASSISTANT April 07, 2014 7:18pm Jaye Bran Registered Clinical [facility] DOCTOR ASSISTANT April 07, 2014 4:35pm Jaye Bran Departed [facility] OB Check April 01, 2014 6:39am April 01, 2014 10:50am Marty Bonner Registered Clinical [facility] DOCTOR ASSISTANT March 02, 2014 2:25pm Marty Bonner Registered Clinical [facility] DOCTOR ASSISTANT February 19, 2014 1:30pm Jaye Bran Departed [facility] OB Check February 17, 2014 7:06pm February 17, 2014 7:35pm Marty Bonner Registered [facility] [place] February 16, 2014 3:51pm Matt Cooleyina Discharged [facility] Physical Therapy February 04, 2014 1:00pm February 26, 2014 9:56am Criss Gary Registered [facility] DOCTOR ASSISTANT February 02, 2014 2:27pm Marty Bonner Registered [facility] DOCTOR ASSISTANT January 13, 2014 6:30pm Marty Bonner Registered [facility] DOCTOR ASSISTANT January 13, 2014 2:18pm Marty Bonner Registered [facility] DOCTOR ASSISTANT December 16, 2013 2:41pm Marty Bonner Registered [facility] DOCTOR ASSISTANT December 02, 2013 6:14pm Jaye Bran Registered [facility] Referred Lab November 25, 2013 7:41pm Criss Gary Registered [facility] DOCTOR ASSISTANT November 04, 2013 10:03am Jaye Bran Registered [facility] DOCTOR ASSISTANT October 27, 2013 9:20am Jaye Bran Registered [facility] Referred Lab October 01, 2013 8:28pm Criss Gary Discharged [facility] Physical Therapy August 08, 2013 8:30am August 15, 2013 11:27am Carlito Anne Registered [facility] June 27, 2013 11:23am Carlito Anne Registered [facility] June 27, 2013 11:21am Jaye Bran Departed Emergency [facility] Emergency Department June 24, 2013 7:11pm June 24, 2013 8:28pm Departed Emergency [facility] Emergency Department May 02, 2013 9:36pm May 02, 2013 11:13pm Functional Status No known functional status. Immunizations No known immunizations. Payers Payer Name Policy Type Covered Constitution Party Covered Constitution Party Id Relationship Subscriber Subscriber Id [place] MEDICAID Medicaid RAYMUNDO CARREON [id number] SELF/SAME PATIENT RAYMUNDO CARREON [id number] Plan of Care Instructions <b><u>NST/OB Discharge Instr uctions:</u></b> <b>Diet:</b> [id number] meals with 2-3 snacks. 2400 calorie/day is recommended. Talk to you doctor about adjusting calories if you are over or under weight. Make healthy food choices with variety from all of the food groups. Drink 4-6 glasses of water, 3-4 glasses of low fat milk and 1 glass of juice every day. Avoid drinking beer/wine/liquor/mixed drinks. These can harm your baby. <b>Activity:</b> ___x No restrictions as tolerated Avoid overly strenuous activities. Get out for a walk or do some stretching and moving each day. Get approximately 8 hours of sleep each night and take naps during the day. Bedrest, up to bathroom only <b>Self monitoring and when to call the Physician:</b> Decreased movement - be aware of how much your baby is moving. If the baby seems less active than usual, sit in a quiet place and drink something cold and sweet. You should notice the baby moving 4-6 times over the next 2 hours. Before 36 weeks gestation, backache or cramping not relieved by rest. Regular contractions that are becoming stronger and closer together. Your water breaks or leaks - note the color and amount (putting on a pad helps if you are not sure) Bright red vaginal bleeding like a period or passing clots Change in vaginal discharge with odor or color Temperature over 100.4 degrees F (38 C) by mouth Severe abdominal pain or cramping Increased swelling of face or hands Blurred vision, seeing spots or flashes of light Unrelieved or constant headaches Unrelieved indigestion, nausea or vomiting Mental confusion or disorientation Unusual shortness of breath or difficulty breathing If you have any questions or concerns <b>Follow up care:</b> Continue to take vitamins as directed by your physician Do not smoke - avoid second hand smoke. For information of quitting, call [phone] Repeat NST on Return to [facility] for induction of labor on Next appointment 05/03 or 05/[address] Bonner in office. Social History Query Response Date Recorded Comment Alcohol None April 01, 2014 7:59am Drugs None April 01, 2014 7:59am Vital Signs Vital Reading Result Reference Range Collection Date/Time Height 5 ft October 31, 2012 6: 41am Weight n/a Temperature 98.0 F 97.6 F-99.6 F April 19 4:07am Pulse 81 BPM 60-100 April 19 4 4:07am Respiration 14 RPM -April 19 4 4:07am Pulse Oximetry n/a [facility]stolic 113 100-140 [facility] Blood Pressure Diastolic 59 50-85 Apr [facility] 4:07am Body Mass Index n/a
--- OUTSIDE RECORDS SUMMARY | 2024-01-09 10:59 | XMS_ITS | Continuity of Care Document ---
Author Name [facility] Organization [facility] Care Team Providers Care Editor Map Name Role Phone Carlito Anne Primary Care Physician Edgar Ontiveros Attending Physician [phone] Allergies, Adverse Reactions, Alerts Allergen Type Severity [...] TIMES DAILY PRN For Cough Decembe r , 2013 Active Budesonide/Fo rmoterol 80/4.5 1 PUFF INH Decembe r 5, 2013 Active Problem List Medical Problem Onset Date Status Pyelonephritis complicating Active section Inactive Procedures Procedure Date Status Provider(s) US 3RD TRIMESTER SCREENING May 05, 2014 active EMERGENCY DEPT VISIT December 21, [...] 2013 active OB US FOLLOW-UP PER FETUS May 05, 2014 active OB US >/= 14 WKS SNGL FETUS February 02, 2014 active US EXAM BREAST(S) June 27, 2013 active X-RAY EXAM OF ANKLE June 24, 2013 active X-RAY EXAM OF HIP June 27, 2013 active X-RAY EXAM OF SHOULDER May 02, 2013 active NON-STRESS TEST 2014 active ROUTINE VENIPUNCTURE December 21, 2012 active EMERGENCY DEPT VISIT December 21, 2012 [...] 2013 active OB US FOLLOW-UP PER FETUS May 05, 2014 active OB US >/= 14 WKS SNGL FETUS February 02, 2014 active US EXAM BREAST(S) June 27, 2013 active X-RAY EXAM OF ANKLE June 24, 2013 active X-RAY EXAM OF HIP June 27, 2013 active X-RAY EXAM OF SHOULDER May 02, 2013 active NON-STRESS TEST 2014 active ROUTINE VENIPUNCTURE December 21, 2012 active EMERGENCY DEPT VISIT December 21, 2012 [...] 2013 active OB US FOLLOW-UP PER FETUS May 05, 2014 active OB US >/= 14 WKS SNGL FETUS February 02, 2014 active US EXAM BREAST(S) June 27, 2013 active X-RAY EXAM OF ANKLE June 24, 2013 active X-RAY EXAM OF HIP June 27, 2013 active X-RAY EXAM OF SHOULDER May 02, 2013 active NON-STRESS TEST 2014 active ROUTINE VENIPUNCTURE December 21, 2012 active [...] 2013 active OB US FOLLOW-UP PER FETUS May 05, 2014 active OB US >/= 14 WKS SNGL FETUS February 02, 2014 active US EXAM BREAST(S) June 27, 2013 active X-RAY EXAM OF ANKLE June 24, 2013 active X-RAY EXAM OF HIP June 27, 2013 active X-RAY EXAM OF SHOULDER May 02, 2013 active NON-STRESS TEST 2014 active ROUTINE VENIPUNCTURE December 21, 2012 active [...] 2013 active OB US FOLLOW-UP PER FETUS May 05, 2014 active OB US >/= 14 WKS SNGL FETUS February 02, 2014 active US EXAM BREAST(S) June 27, 2013 active X-RAY EXAM OF ANKLE June 24, 2013 active X-RAY EXAM OF HIP June 27, 2013 active X-RAY EXAM OF SHOULDER May 02, 2013 active NON-STRESS TEST 2014 active ROUTINE VENIPUNCTURE December 21, 2012 active [...] 2013 active OB US FOLLOW-UP PER FETUS May 05, 2014 active OB US >/= 14 WKS SNGL FETUS February 02, 2014 active US EXAM BREAST(S) June 27, 2013 active X-RAY EXAM OF ANKLE June 24, 2013 active X-RAY EXAM OF HIP June 27, 2013 active X-RAY EXAM OF SHOULDER May 02, 2013 active NON-STRESS TEST 2014 active ROUTINE VENIPUNCTURE December 21, 2012 active [...] 2013 active OB US FOLLOW-UP PER FETUS May 05, 2014 active OB US >/= 14 WKS SNGL FETUS February 02, 2014 active US EXAM BREAST(S) June 27, 2013 active X-RAY EXAM OF ANKLE June 24, 2013 active X-RAY EXAM OF HIP June 27, 2013 active X-RAY EXAM OF SHOULDER May 02, 2013 active NON-STRESS TEST 2014 active ROUTINE VENIPUNCTURE December 21, 2012 active [...] 2013 active OB US FOLLOW-UP PER FETUS May 05, 2014 active OB US >/= 14 WKS SNGL FETUS February 02, 2014 active US EXAM BREAST(S) June 27, 2013 active X-RAY EXAM OF ANKLE June 24, 2013 active X-RAY EXAM OF HIP June 27, 2013 active X-RAY EXAM OF SHOULDER May 02, 2013 active NON-STRESS TEST 2014 active ROUTINE VENIPUNCTURE December 21, 2012 active [...] April 01, 2014 7:30am 7.0 Urine Specific [place] April 01, 2014 7:30am 1.015 Urine Protein [...] 2013 12:00am Negative u/mL Assayed utilizing the fl3ur DSX system. Test Performed by: [place] [address] [address]uttle [address] Vehicle Operator: Ean Bell M.D. Hepatitis B Surface Antigen December 02, 2013 1:25pm Negative Reference Range: Negative Test Performed by: [place] [address] [address] Vehicle Operator: Ean Bell M.D. Rubella IgG Antibody December 02, 2013 1:25pm Positive Positive results suggest immunity to Rubella infection. Test Performed by: [place] [address] [address] Vehicle Operator: Ean Bell M.D. Advance Directives Advance Directive Response Recorded Date/ Time Does the patient have a living will? No September 05, 2010 2:40am Does the patient have an advanced directive? No September 05, 2010 2:40am Power of Cooling Tower Technician? No September 05 1 2:40am Chief Complaint and Reason for Visit Encounter Admit Date Chief Complaint Reason for V isit Departed Clinical May 22, 2014 4:52pm OB CHECK Hospital Discharge Instructions No known hospital discharge [...] May 22, 2014 Active Budesonide/Form oterol 80/4.5 1 PUFF INH Decemb er 2013 Active Encounters Encounter Facility Location Admit Date Discharge Date Attending Provider Departed [facility] OB Check May 22, 2014 4:52pm May 22, 2014 6:12pm Edgar Ontiveros Registered [facility] QUALITY IMPROVEMENT MANAGER May 21, 2014 9:17am Marty Bonner Registered [facility] ANJANA Sanabria [facility] QUALITY IMPROVEMENT MANAGER May 05, 2014 9:03am [facility] 3:54am 2014 7:55am Marty Bonner Registered [facility] QUALITY IMPROVEMENT MANAGER April 07, 2014 7:18pm Jaye Bran Registered [facility] QUALITY IMPROVEMENT MANAGER April 07, 2014 4:35pm [facility] 01, 2014 6:39am April 01, 2014 10:50am Marty Bonner Registered [facility] QUALITY IMPROVEMENT MANAGER March 02, 2014 2:25pm Marty Bonner Registered [facility] QUALITY IMPROVEMENT MANAGER February 19, 2014 1:30pm Jaye Bran Departed [facility] OB Check February 17, 2014 7:06pm February 17, 2014 7:35pm Marty Bonner Registered [facility] [place] February 16, 2014 3:51pm Camille Cooley Discharged [facility] Physical Therapy February 04, 2014 1:00pm February 26, 2014 9:56am Criss Gary Registered [facility] QUALITY IMPROVEMENT MANAGER February 02, 2014 2:27pm Marty Bonner Registered [facility] QUALITY IMPROVEMENT MANAGER January 13, 2014 6:30pm Marty Bonner Registered [facility] QUALITY IMPROVEMENT MANAGER January 13, 2014 2:18pm Marty Bonner Registered [facility] QUALITY IMPROVEMENT MANAGER December 16, 2013 2:41pm Marty Bonner Registered [facility] QUALITY IMPROVEMENT MANAGER December 02, 2013 6:14pm Jaye Bran Registered [facility] Referred Lab November 25, 2013 7:41pm Criss Gary Registered [facility] QUALITY IMPROVEMENT MANAGER November 04, 2013 10:03am Jaye Bran Registered [facility] QUALITY IMPROVEMENT MANAGER October 27, 2013 9:20am Jaye Bran Registered [facility] Referred Lab October 01, 2013 8:28pm Criss Gary Discharged [facility] Physical Therapy August 08, 2013 8:30am August 15, 2013 11:27am Carlito Anne Registered [facility] June 27, 2013 11:23am Carlito Anne Registered [facility] June 27, 2013 11:21am Jaye Bran Departed Emergency [facility] Emergency Department June 24, 2013 7:11pm June 24, 2013 8:28pm Functional Status No known functional status. Immunizations No known immunizations. Payers Payer Name Policy Type Covered Libertarian Covered Libertarian Id Relationship Subscriber Subscriber Id [place] CATRACHITONIRMAL LAURI [id number] SELF/SAME PATIENT LALITOEDILSONNIRMAL CARREON [id number] Plan of Care Instructions <b><u>NST/OB Discharge Instr uctions:</u></b> <b>Diet:</b> [id number] meals with 2-3 snacks. 2400 calorie/day is [...] hand smoke. For information of quitting, call [phone] Repeat NST on Return to [facility] for induction of labor on Next appointment 05/03 or 05/[address] Bonner in office. Social History Query Response Date Recorded Comment Alcohol None April 01, 2014 7:59am Drugs None April 01, 2014 7:59am Vital Signs Vital Reading Result Reference Range Collection Date/Time Height 5 ft May 22 4:59pm Weight 149 lb May 22 4:59pm Temperature 98.0 F 97.6 F-99.6 F April 19 4:07am Pulse 103 BPM 60-100 May 22 4 5:08pm Respiration 16 RPM -May 22 4 5:08pm Pulse Oximetry 97 % 95-100 May 22 014 5:08pm Blood Pressure Systolic 92 100-140 Dece 2013 5:08pm Blood Pressure Diastolic 63 50-85 Dec [facility]2013 5:08pm Body Mass Index n/a
--- OUTSIDE RECORDS SUMMARY | 2024-01-09 10:59 | XMS_ITS | Continuity of Care Document ---
Author Name [facility] Organization [facility] Care Team Providers Care Dialysis Chief Equipment Technician Name Role Phone Carlito Anne Primary Care Physician [phone] Marty Bonner Admitting Physician Marty Bonner Attending Physician [phone] Allergies, Adverse Reactions, Alerts Allergen Type Severity [...] INH FOUR TIMES DAILY PRN For Cough Dece2013 Active Budesonide/Fo rmoterol 80/4.5 2 PUFF INH [...] US TRANSVAGINAL OB November 04, 2013 active US BREAST ACUTE RT June 27, 2013 completed HIP 2VW MIN RT June 27, 2013 completed ANKLE 3VW MIN RT June 24, 2013 completed Relevant Diagnostic Tests and/or Laboratory Data Test [...] April 01, 2014 7:30am 7.0 Urine Specific [place] April 01, 2014 7:30am 1.015 Urine Protein [...] 2013 12:00am Negative u/mL Assayed utilizing the Snowman DSX system. Test Performed by: [place] [address] Lamination Assembler: Ean Bell M.D. Hepatitis B Surface Antigen December 02, 2013 1:25pm Negative Reference Range: Negative Test Performed by: [place] [address] Lamination Assembler: Ean Bell M.D. Rubella IgG Antibody December 02, 2013 1:25pm Positive Positive results suggest immunity to Rubella infection. Test Performed by: [place] [address] Lamination Assembler: Ean Bell M.D. Advance Directives Advance Directive Response Recorded Date/ Time Does the patient have a living will? No September 05, 2010 2:40am Does the patient have an advanced directive? No September 05, 2010 2:40am Power of Locker Room Attendant? No September 05 2:40am Chief Complaint and Reason for Visit Encounter Admit Date Chief Complaint Reason for V isit Discharged Inpatient June 15, 2014 10:59am LABOR History of section Hospital Discharge Instructions <b><u> Discharge I nstructions:</u></b> <b>Diet:</b> Eat a well-balanced meal and drink plenty of fluids. <b>Activity:</b> Rest as much as possible, increase activity as tolerated. <b>Medications:</b> Continue vitamins and iron or multi-vitamins with iron until your 6-8 week check up or while . May take Tylenol as directed. <b>Special Instructions:</b> No sexual intercourse for 6 to 8 weeks, no tampons for 6 to 8 weeks, no douching for 6 to 8 weeks, nothing in the vagina for 6 to 8 weeks until after follow up appointment. Call physician with temperature over 101 degrees Fahrenheit, increased vaginal bleeding, increased lower abdominal pain. If Section, lift nothing heavier than your baby. No driving for two weeks and while taking pain medication. Call physician with any questions or concerns. Hospital Discharge Medications Medication Dose Units Route [...] Location Admit Date Discharge Date Attending Provider Discharged Inpatient [facility] June 15, 2014 10:59am June 18, 2014 11:50am Marty Bonner Registered Clinical [facility] June 15, 2014 10:03am Marty Bonner Registered Clinical [facility] [place] June 08, 2014 10:16am Marty Bonner Registered Referred [facility] June 01, 2014 8:28pm Marty Bonner Registered Clinical [facility] June 01, 2014 11:49am Marty Bonner Departed [facility] OB Check May 31, 2014 6:22pm May 31, 2014 8:00pm Marty Bonner Departed [facility] OB Check May 22, 2014 4:52pm May 22, 2014 6:12pm Edgar Ontiveros Registered Clinical [facility] [place] May 21, 2014 9:17am Marty Bonner Registered Clinical [facility] Daniele [facility] May 05, 2014 9:03am Marty Bonner Departed [facility] OB Check 2014 3:54am 2014 7:55am Marty Bonner Registered Referred [facility] [place] April 07, 2014 7:18pm Jaye Bran Registered Clinical [facility] April 07, 2014 4:35pm Jaye Bran Departed Clinical [facility] OB Check April 01, 2014 6:39am April 01, 2014 10:50am Marty Bonner Registered Clinical [facility] March 02, 2014 2:25pm Marty Bonner Registered Clinical [facility] February 19, 2014 1:30pm Jaye Bran Departed [facility] OB Check February 17, 2014 7:06pm February 17, 2014 7:35pm Marty Bonner Registered Referred [facility] [place] February 16, 2014 3:51pm Camille Cooley Discharged [facility] Physical Therapy February 04, 2014 1:00pm February 26, 2014 9:56am Criss Gary Registered Clinical [facility] [place] February 02, 2014 2:27pm Marty Bonner Registered Referred [facility] January 13, 2014 6:30pm Marty Bonner Registered Clinical [facility] January 13, 2014 2:18pm Marty Bonner Registered Clinical [facility] [place] December 16, 2013 2:41pm Marty Bonner Registered Referred [facility] December 02, 2013 6:14pm Jaye Bran Registered Referred [facility] Referred Lab November 25, 2013 7:41pm Criss Gary Registered Clinical [facility] November 04, 2013 10:03am Jaye Bran Registered Clinical [facility] October 27, 2013 9:20am Jaye Bran Registered Referred [facility] Referred Lab October 01, 2013 8:28pm Criss Gary Discharged [facility] Physical Therapy August 08, 2013 8:30am August 15, 2013 11:27am Carlito Anne Registered Clinical [facility] June 27, 2013 11:23am Carlito Anne Registered Clinical [facility] June 27, 2013 11:21am Jaye Bran Departed Emergency [facility] Emergency Department June 24, 2013 7:11pm June 24, 2013 8:28pm Recent Diagnosis History of section Functional Status No known functional status. Immunizations No known immunizations. Payers Payer Name Policy Type Covered Alliance Party Covered Alliance Party Id Relationship Subscriber Subscriber Id [place] Medicaid RAYMUNDO CARREON [id number] SELF/SAME PATIENT CATRACHITONIRMAL CARREON [id number] Plan of Care Instructions Health Concerns: Any surgica l or post- complications Goals: Uncomplicated surgical and post- recovery Instructions: Follow printed instructions for wound care, activity, diet and your follow-up appointment with your Chief Medical Technologist Social History Query Response Date Recorded Comment Alcohol None June 15, 2014 1:51pm Drugs None June 15, 2014 1:51pm Query Response Start Date Stop Date Comment Smoking Status Never Smoker Vital Signs Vital Reading Result Reference Range Collection Date/Time Height 5 ft June 15 1:47pm Weight 153 lb June 15 1:47pm Temperature 98.5 F 97.6 F-99.6 F June 18 5 8:00am Pulse 81 BPM 60-100 June 18, 2014 8:00am Respiration 18 RPM 12-24 June 18, 2014 8:00am Pulse Oximetry 97 % 95-100 June 18 8:00am Blood Pressure Systolic 111 100-140 Josh ernst 2014 8:00am Blood Pressure Diastolic 71 50-85 Aaron lora 2014 8:00am Body Mass Index n/a
--- OUTSIDE RECORDS SUMMARY | 2024-01-09 10:59 | XMS_ITS | Continuity of Care Document ---
Author Name [facility] Address [address] [place] [id number] Organization [facility] Address [address] [place] [address] Care Team Providers Care Denier Control Operator Name Role Phone Marty Bonner Admitting Physician Marty Bonner Attending Physician [phone] Given, Not Primary Care Physician Unavailab le Allergies, Adverse Reactions, Alerts Allergen Type Severity Reaction Last Updated Verified Status latex Allergy pruritis January 07, 2016 Y Active Sulfa (Sulfonamide Antibiotics) Allergy rash January 07, 2016 Y Active Medications Active Medications Medication Dose Units Route Sig Qty Days Start Date Discontinued Date Status Instructions Budesonide/Fo rmoterol 80/4.5 2 PUFF INHALAT ION TWICE A DAY Decemb r 2013 Active Albuterol Sulfate 2 PUFF [...] Inactive Procedures Procedure Date Status Provider(s) OBG Hysterectomy Laparoscopic January 07, 2016 completed Marty Bonner Urine Culture December 28, 2015 completed OBG Hysteroscopy November 12, 2015 completed Rika Bonner NOBG US Transvaginal Non OB October 26, 2015 active Chest 2 vw October 07, 2015 completed Group A Streptococcus Screen (TAYLA) September 25, [address] Abd Pel w/o Contrast May 03, 2015 completed Urine Culture February 10, 2015 completed Relevant Diagnostic Tests and/or Laboratory Data Laboratory Results Test Date/Time Result Interp. Ref. Range Result Co mment White Blood Count January 08, 2016 7:35am 11.56 1000/mm3 High 4.8-10.8 Red Blood Count January 08, 2016 7:35am 4.12 M/mm3 Low 4.20-5.40 Hemoglobin January 08, 2016 7:35am 10.6 g/dL Low 12.0-16.0 Hematocrit January 08, 2016 7:35am 33.4 % Low 37-47 Mean Corpuscular Volume January 08, 2016 7:35am 81.1 fL 81.0-99.0 Mean Corpuscular Hemoglobin January 08, 2016 7:35am 25.7 pg Low 27-31 Mean Corpuscular Hemoglobin Concent January 08, 2016 7:35am 31.7 g/dL Low 33-37 Red Cell Distribution Width January 08, 2016 7:35am 13.2 % 11.5-14.5 Platelet Count January 08, 2016 7:35am 142 1000/mm3 140-440 Mean Platelet Volume January 08, 2016 7:35am 14.2 fL High 7.4-10.4 Neutrophils (%) (Auto) May [...] May 03, 2015 11:35am 77 U/L 23-300 Thyroid Stimulating Hormone (TSH) October 12, 2015 9:45am 3.15 mlU/L 0.47-4.68 TSH cascade is not recommended for patients in which pituitary or hypothalmic disorders are suspected. Microbiology Results Procedure Source Result Collection Date/Time Result Date/Time Urine Culture Ur,Clean Catch No results entered February 10, 2015 12:06am Group A Streptococcus Screen (TAYLA) Throat No results entered September 25, 2015 11:50am Urine Culture Ur,Clean Catch Escherichia Coli December 28, 2015 10:57am December 31, 2015 8:23am Advance Directives Advance Directive Response Recorded Date/ Time Does the patient have a living will? No September 05, 2010 2:40am Does the patient have an advanced directive? No September 05, 2010 2:40am Power of Nuclear Equipment Research Engineer? No September 05 1 2:40am Chief Complaint and Reason for Visit Encounter Admit Date Chief Complaint Reason for V isit Discharged Inpatient January 08, 2016 6:37pm EXCESSIVE AND FREQUENT MENSTRUATION WITH IRREGULAR Status post total abdominal hysterectomy Hospital Discharge Instructions No known hospital discharge [...] Date Discharge Date Attending Provider Discharged Inpatient [facility] January 08, 2016 6:37pm January 10, 2016 9:50am Marty Bonner Registered Referred [facility] DANCE HALL HOST/HOSTESS December 28, 2015 7:15pm Jaye Bran Registered Clinical [facility] DANCE HALL HOST/HOSTESS November 29, 2015 9:22am Marty Bonner Registered Surgical Day Care [facility] Surgical Services November 12, 2015 9:44am Marty Bonner Registered Clinical [facility] DANCE HALL HOST/HOSTESS November 02, 2015 9:42am Marty Bonner Registered Clinical [facility] DANCE HALL HOST/HOSTESS October 26, 2015 8:55am Marty Bonner Registered Referred [facility] DANCE HALL HOST/HOSTESS October 12, 2015 2:44pm Marty Bonner Registered Clinical [facility] DANCE HALL HOST/HOSTESS October 12, 2015 9:39am Marty Bonner Registered Clinical [facility] October 07, 2015 10:41am Carlito Anne Registered Referred [facility] [place] September 25, 2015 6:20pm Stella Britt Registered Clinical [facility] DANCE HALL HOST/HOSTESS September 02, 2015 10:46am Jaye Bran Registered Referred [facility] Pathology July 20, 2015 7:20pm Jaye Bran Registered Clinical [facility] DANCE HALL HOST/HOSTESS July 20, 2015 10:24am Jaye Bran Departed Emergency [facility] Emergency Department May 03, 2015 10:31am May 03, 2015 1:37pm Registered Referred [facility] [place] April 28, 2015 9:03pm Paulette Yoon Registered Referred [facility] February 10, 2015 3:41pm Carlito Anne Departed Emergency [facility] Emergency Department January 23, 2015 9:28pm January 23, 2015 9:52pm Encounter Diagnosis Onset Date Status post total abdominal hysterectomy Functional Status Query Response Date Recorded Comment Comprehension Ability Understands Concepts January 09 8:00am Memory Description Intact January 10, 2016 8:00am Mood Description Appropriate Calm January 10, 2016 8:00am Patient Behavior Appropriate Cooperative January 10, 2016 8:00am Speech Pattern Clear Appropriate January 10, 2016 8:00am Query Response Date Recorded Comment Ambulation Ability [...] Subscriber Id [place] RAYMUNDO CARREON [id number] SELF/SAME PATIENT RAYMUNDO CARREON [id number] Plan of Care Instructions Hysterectomy Abdominal Dc Social History Query Response Date Recorded Comment Alcohol None June 15, 2014 1:51pm Drugs None June 15, 2014 1:51pm Living Situation With Family January 07, 2016 12:38pm Query Response Start Date Stop Date Smoking Status Never Smoker Vital Signs Vital Reading Result Reference Range Collection Date/Time Height 5 ft January 07, 2016 1 2:38pm Weight 135 lb January 07, 2016 1 2:38pm Temperature 98.0 F 97.6 F-99.6 F January 10, 2016 8:16am Pulse 85 BPM 60-100 January 10, 2016 8 :16am Respiration 16 RPM 12-24 January 10, 2016 8 :16am Pulse Oximetry 100 % 95-100 January 10, 2016 8:16am Blood Pressure Systolic 111 100-140 January 10, 2016 8:16am Blood Pressure Diastolic 55 50-85 Dec 8:16am Body Mass Index n/a
--- OUTSIDE RECORDS SUMMARY | 2024-01-09 10:59 | XMS_ITS | Continuity of Care Document ---
Author Name [facility] Address [address] [place] [id number] Organization [facility] Address [address] [place] [address] Care Team Providers Care Record Press Operator Name Role Phone Out of Town, Provider [...] have a copy on file here at [facility]? No February 10, 2017 5:36pm Does patient have an Advanced Directive? No September 05, 2010 2:40am Pt has a Living Will? No September 05, 2010 2:40am Pt has a Power of Dental Coordinator? No Zaid 2010 2:40am Hospital Discharge Instructions [...] Date Discharge/Departure Date Attending Provider Departed Referred [facility] Urgent Care [facility] September 08, 2017 12:19pm September 08, 2017 12:20pm Chris Matos Departed Emergency [facility] Emergency Department February 10, 2017 4:55pm February 10, 2017 7:20pm Functional Status No known functional status. Immunizations No known immunizations. Payers Payer Name Policy Type Covered Republican Covered Republican Id Relationship Subscriber Subscriber Id [place] Medicaid RAYMUNDO CARREON [id number] Self/Same as Patient RAYMUNDO CARREON [id number] SELF PAY Personal [place] (DO NOT USE) Medicaid RAYMUNDO CARREON [id number] Self/Same as Patient RAYMUNDO CARREON [id number] Plan of Care No Known Plan of [...]
--- OUTSIDE RECORDS SUMMARY | 2024-01-09 10:59 | XMS_ITS | Continuity of Care Document ---
Author Name [facility] Address [address] [place] [address] Organization [facility] Address [address] [place] [address] Care Team Providers Care Tank Insulator Rubber Name Role Phone Out of Town, Provider Primary Care Physician Jaye Holloway Attending Physician [phone] Allergies, Adverse Reactions, Alerts Allergen Type Severity [...] Status section Inactive Procedures Procedure Date Status Urine Culture September 28, 2017 active Gram Stain September 28, [address] Abd Pel w/o Contrast February 10, [...] have a copy on file here at [facility]? No February 10, 2017 5:36pm Does patient have an Advanced Directive? No September 05, 2010 2:40am Pt has a Living Will? No September 05, 2010 2:40am Pt has a Power of Microbiology Quality Control Technician? No Zaid 2010 2:40am Hospital Discharge Instructions [...] Date Discharge/Departure Date Attending Provider Departed Referred [facility] September 28, 2017 7:25pm September 28, 2017 7:26pm Jyae Bran Departed Referred [facility] September 08, 2017 12:19pm September 08, 2017 12:20pm Chris Matos Departed Emergency [facility] Emergency Department February 10, 2017 4:55pm February 10, 2017 7:20pm Functional Status No known functional status. Immunizations No known immunizations. Payers Payer Name Policy Type Covered Libertarian Covered Libertarian Id Relationship Subscriber Subscriber Id [place] Medicaid RAYMUNDO CARREON [id number] Self/Same as Patient RAYMUNDO CARREON [id number] SELF PAY Personal [place] MEDICAID (DO NOT USE) Medicaid RAYMUNDO CARREON [id number] Self/Same as Patient RAYMUNDO CARREON [id number] Plan of Care No Known Plan of [...]
--- OUTSIDE RECORDS SUMMARY | 2024-01-09 10:59 | XMS_ITS | Continuity of Care Document ---
Author Name [facility] Address [address] [place] [id number] Organization [facility] Address [address] [place] [address] Care Team Providers Care Network Operations Project Manager Name Role Phone Marty Bonner Admitting Physician [phone] Marty Bonner Attending Physician [phone] Given, Not Primary Care Physician Unavailab le [...] No September 05, 2010 2:40am Power of Client Support Associate? No September 05 1 2:40am Chief Complaint and Reason for Visit Encounter Admit Date Chief Complaint Reason for V isit Discharged Inpatient January 07, 2016 5:47pm POST OP TOTAL ABDOMINAL HYSTERECTOMY Status post total abdominal hysterectomy Hospital Discharge [...] Date Discharge Date Attending Provider Discharged Inpatient [facility] January 07, 2016 5:47pm January 10, 2016 10:13am Marty Bonner Registered Referred [facility] MUSCULOSKELETAL PHYSIOTHERAPIST December 28, 2015 7:15pm Jaye Bran Registered Clinical [facility] MUSCULOSKELETAL PHYSIOTHERAPIST November 29, 2015 9:22am Marty Bonner Registered Surgical Day Care [facility] Surgical Services November 12, 2015 9:44am Marty Bonner Registered Clinical [facility] MUSCULOSKELETAL PHYSIOTHERAPIST November 02, 2015 9:42am Marty Bonner Registered Clinical [facility] MUSCULOSKELETAL PHYSIOTHERAPIST October 26, 2015 8:55am Marty Bonner Registered Referred [facility] MUSCULOSKELETAL PHYSIOTHERAPIST October 12, 2015 2:44pm Marty Bonner Registered Clinical [facility] MUSCULOSKELETAL PHYSIOTHERAPIST October 12, 2015 9:39am Marty Bonner Registered Clinical [facility] October 07, 2015 10:41am Carlito Anne Registered Referred [facility] [place] September 25, 2015 6:20pm Stella Britt Registered Clinical [facility] MUSCULOSKELETAL PHYSIOTHERAPIST September 02, 2015 10:46am Jaye Bran Registered Referred [facility] Pathology July 20, 2015 7:20pm Jaye Bran Registered Clinical [facility] MUSCULOSKELETAL PHYSIOTHERAPIST July 20, 2015 10:24am Jaye Bran Departed Emergency [facility] Emergency Department May 03, 2015 10:31am May 03, 2015 1:37pm Registered Referred [facility] [place] April 28, 2015 9:03pm Paulette Yoon Registered Referred [facility] February 10, 2015 3:41pm Carlito Anne Departed Emergency [facility] Emergency Department January 23, 2015 9:28pm [...] Subscriber Id [place] Medicaid RAYMUNDO CARREON [id number] SELF/SAME PATIENT RAYMUNDO CARREON [id number] Plan of Care Instructions Hysterectomy Abdominal Dc [...]
--- OUTSIDE RECORDS SUMMARY | 2024-01-09 10:59 | XMS_ITS | Continuity of Care Document ---
Author Name [facility] Organization [facility] Care Team Providers Care Steel Inspector Name Role Phone Carlito Anne Primary Care Physician Marty Bonner Attending Physician Allergies, Adverse Reactions, Alerts Allergen Type Severity Reaction Last Updated Verified Status Latex Allergy Moderate pruritis October 31, 2012 Y Active SULFA (sulfonamide) Allergy Moderate rash October 31, 2012 Y Active Medications Medication Dose Units Route [...] section Inactive Procedures Procedure Date Status Provider(s) Urine Culture February 16, 2014 completed US [...] 21, 2012 active URINALYSIS AUTO W/O SCOPE December 21, 2012 active ELECTROLYTE PANEL December 21, 2012 active [...] 21, 2012 active URINALYSIS AUTO W/O SCOPE December 21, 2012 active ELECTROLYTE PANEL December 21, 2012 active [...] 21, 2012 active URINALYSIS AUTO W/O SCOPE December 21, 2012 active ELECTROLYTE PANEL December 21, 2012 active [...] 21, 2012 active URINALYSIS AUTO W/O SCOPE December 21, 2012 active ELECTROLYTE PANEL December 21, 2012 active [...] 21, 2012 active URINALYSIS AUTO W/O SCOPE December 21, 2012 active ELECTROLYTE PANEL December 21, 2012 active [...] 21, 2012 active URINALYSIS AUTO W/O SCOPE December 21, 2012 active ELECTROLYTE PANEL December 21, 2012 active [...] Result Co mment White Blood Count February 16, 2014 10:37am 14.06 1000/mm3 High 4.8-10.8 Red Blood Count February 16, 2014 10:37am 4.38 M/mm3 4.20-5.40 Hemoglobin February 16, 2014 10:37am 12.4 g/dL 12.0-16.0 Hematocrit February 16, 2014 10:37am 37.2 % 37-47 Mean Corpuscular Volume February 16, 2014 10:37am 84.9 fL 81.0-99.0 Mean Corpuscular Hemoglobin February 16, 2014 10:37am 28.3 pg 27-31 Mean Corpuscular Hemoglobin Concent February 16, 2014 10:37am 33.3 g/dL 33-37 Red Cell Distribution Width February 16, 2014 10:37am 14.2 % 11.5-14.5 Platelet Count February 16, 2014 10:37am 112 1000/mm3 Low 140-440 Mean Platelet Volume February 16, 2014 10:37am TNP Test not performed Unable to determine value Neutrophils (%) (Auto) February 16, 2014 10:37am [...] April 01, 2014 7:30am 7.0 Urine Specific [place] April 01, 2014 7:30am 1.015 Urine Protein [...] February 16, 2014 10:37am 99 mg/dL 70-100 Calcium Level February 16, 2014 10:37am 9.3 mg/dL 8.4-10.2 Helicobacter pylori IgG Antibody October 01, 2013 12:00am Negative u/mL Assayed utilizing the [employer] system. Test Performed by: [place] [address] Data Conversion Developer: Ean Bell M.D. Hepatitis B Surface Antigen December 02, 2013 1:25pm Negative Reference Range: Negative Test Performed by: [place] [address] Data Conversion Developer: Ean Bell M.D. Rubella IgG Antibody December 02, 2013 1:25pm Positive Positive results suggest immunity to Rubella infection. Test Performed by: [place] [address] Data Conversion Developer: Ean Bell M.D. Advance Directives Advance Directive Response Recorded Date/ Time Does the patient have a living will? No September 05, 2010 2:40am Does the patient have an advanced directive? No September 05, 2010 2:40am Power of Utility Worker Roller Shop? No September 05 1 2:40am Chief Complaint and Reason for Visit Encounter Admit Date Chief Complaint Reason for V isit Departed Clinical April 01, 2014 6:39am OB CHECK Hospital Discharge Instructions No known [...] Admit Date Discharge Date Attending Provider Departed [facility] OB Check April 01, 2014 6:39am April 01, 2014 10:50am Marty Bonner Registered [facility] MIXED LIVESTOCK FARMER March 02, 2014 2:25pm Marty Bonner Registered [facility] MIXED LIVESTOCK FARMER February 19, 2014 1:30pm Jaye Bran Departed [facility] OB Check February 17, 2014 7:06pm February 17, 2014 7:35pm Marty Bonner Registered [facility] Christopher February 16, 2014 3:51pm Camille Cooley Discharged Recurring [facility] Physical Therapy February 04, 2014 1:00pm February 26, 2014 9:56am Criss Gary Registered [facility] ANJANA Sanab[facility] MIXED LIVESTOCK FARMER February 02, 2014 2:27pm Marty Bonner Registered [facility] MIXED LIVESTOCK FARMER January 13, 2014 6:30pm Marty Bonner Registered [facility] MIXED LIVESTOCK FARMER January 13, 2014 2:18pm Marty Bonner Registered [facility] MIXED LIVESTOCK FARMER December 16, 2013 2:41pm Marty Bonner Registered [facility] MIXED LIVESTOCK FARMER December 02, 2013 6:14pm Jaye Bran Registered [facility] Referred Lab November 25, 2013 7:41pm Criss Gary Registered Clinical [facility] ANJANA Sanabria [facility] MIXED LIVESTOCK FARMER November 04, 2013 10:03am Jaye Bran Registered [facility] MIXED LIVESTOCK FARMER October 27, 2013 9:20am Jaye Bran Registered [facility] Referred Lab October 01, 2013 8:28pm Criss Gary Discharged Recurring [facility] August 08, 2013 8:30am August 15, 2013 11:27am Carlito Anne Registered Clinical [facility] June 27, 2013 11:23am Carlito Anne Registered Clinical [facility] June 27, 2013 11:21am Jaye Bran Departed Emergency [facility] Emergency Department June 24, 2013 7:11pm June 24, 2013 8:28pm Departed Emergency [facility] Emergency Department May 02, 2013 9:36pm May 02, 2013 11:13pm Functional Status No known functional status. Immunizations No known immunizations. Payers Payer Name Policy Type Covered Alliance Party Covered Alliance Party Id Relationship Subscriber Subscriber Id [place] Medicaid RAYMUNDO CARREON [id number] SELF/SAME PATIENT RAYMUNDO CARREON [id number] Plan of Care No known plan of care. Social History Query Response Date Recorded Comment Alcohol None April 01, 2014 7:59am Drugs None April 01, 2014 7:59am Vital Signs Vital Reading Result Reference Range Collection Date/Time Height 5 ft October 31, 2012 6: 41am Weight n/a Temperature 98.4 F 97.6 F-99.6 F April 01 10:07am Pulse 86 BPM 60-100 April 01 4 10:07am Respiration 16 RPM -April 01 4 10:07am Pulse Oximetry n/a Blood Pressure Systolic 99 100-140 Octo 2013 10:07am Blood Pressure Diastolic 55 50-85 Oct darryl 2013 10:07am Body Mass Index n/a
[2024-01-10 11:02] LABS: Syphilis Serology (RPR) Negative (Negative)
[2024-01-10 11:51] LABS: HIV-1/2 Ag & Ab Screen Negative (Negative)
[2024-01-11 12:41] LABS: Chlamydia Result Negative (Negative); GC Result Negative (Negative)
== END 2024-01-09 10:49 | disposition home or self-care (01) ==
LOC: NCHCN 10:48
PROVIDERS: PCP Family Medicine; Visit Provider Emergency Medicine Emergency Medical Services
DX: Z11.3 Encounter for screening for infections with a predominantly sexual mode of transmission (principal)
CPT/HCPCS: 87389; 87491; 87591; 86592; 87480; 87510; 87660

== ENCOUNTER 2024-12-19 19:20 | Emergency (ER) | payer MEDICAID, SELFPAY ==
[2024-12-19 19:22] VITALS: BP 125/79; PULSE 96; RESP 16; O2SAT 98
[2024-12-19 19:26] VITALS: BP 125/79; PULSE 96; RESP 16; O2SAT 98
--- NOTE | 2024-12-19 20:23 | ED.GENADUL_ITS ---
Discharge Plan Disposition Patient Disposition: Home Condition: Good Discharge Details Clinical Impression: Submandibular sialoadenitis Primary Care Provider: Kamala Bliss ED Provider: Jeff Lott [place] Meds and New Rx's Prescriptions: Continued ibuprofen 600 mg tablet 600 mg PO ONCE PRN hydroxyzine HCl 10 mg/5 mL (5 mL) solution 2 mg PO TID-QID PRN (Reason: itching, anxiety, weakness, numbness) Qty: 360 1RF (DME) Pro Comfort Spacer-Adult Mask Spacer See Rx Instructions .Route Rx Instructions: As directed doxepin 10 mg capsule 20 mg PO QHS Qty: 180 3RF albuterol sulfate 90 mcg/actuation Hfa Aerosol Inhaler 2 puff INHALATION Q6H PRN budesonide-formoterol [Symbicort] 80-4.5 mcg/actuation Hfa Aerosol Inhaler 2 puff INHALATION BID PRN (Reason: asthma) rizatriptan 10 mg tablet 10 mg PO Q2H PRN Patient Comments: TAKE ONE TABLET BY MOUTH AT ONSET OF HEADACHE. MAY REPEAT ONCE IN 2 HOURS IF NEEDED. MAX OF 2 TABLETS PER DAY AND 8 TREATMENTS PER MONTH Discharge Instructions Additional Instructions: Your pain and swelling is related to the salivary glands under your jaw which are inflamed and likely related to a viral infection. We do have a mumps titer pending which will not be back until next week. Please stay home and isolate for the weekend. Drink plenty of fluids to stay hydrated. Alternate acetaminophen with ibuprofen as we discussed. Return to ED for any significant worsening of pain or swelling, high fever, difficulty breathing, inability to swallow, other concerns. Referrals: Kamala Bliss [Primary Care Provider, Medicine] [facility] General Mode of arrival: ambulatory . Date/Time Provider Initiated Documentation: 12/19/24 19:53 . Limitations to Documentation: no limitations . Information obtained by: patient and RN notes reviewed . HPI Narrative: Patient presents to ED with complaint of pain and swelling in her neck. Patient reports being sick with cold-like symptoms last week. The symptoms resolved but she started to develop swelling and pain under her jaw and into her neck. She denies having a fever. She denies difficulty breathing or swallowing. She does not have a sore throat per se. Denies any earache, congestion, headache. Related Data Home Medications ?Medication ?Instructions ?Recorded ?Confirmed albuterol sulfate 90 mcg/actuation 2 puff inhalation Q 6H PRN 06/07/19 12/19/24 aerosol inhaler budesonide-formoterol HFA 80 2 puff inhalation BID PRN asthma 06/07/19 12/19/24 mcg-4.5 mcg/actuation aerosol inhaler (Symbicort) ibuprofen 600 mg tablet 600 mg PO ONCE PRN 11/03/20 12/19/24 inhalat.spacing dev,large mask 09/14/21 12/19/24 (Pro Comfort Spacer-Adult Mask) hydroxyzine HCl 10 mg/5 mL (5 mL) 2 mg PO TID-QID PRN itching, 09/19/23 12/19/24 oral solution anxiety, weakness, numbness #360 mL doxepin 10 mg capsule 20 mg (2 x 10 mg) PO QHS #18 0 caps 09/27/23 12/19/24 rizatriptan 10 mg tablet 10 mg PO Q2H PRN 12/19/24 Previous Rx's ?Medication ?Instructions ?Recorded hydroxyzine HCl 10 mg/5 mL (5 mL) 2 mg PO TID-QID PRN itching, 09/19/23 oral solution anxiety, weakness, numbness #360 mL doxepin 10 mg capsule 20 mg (2 x 10 mg) PO QHS #18 0 caps 09/27/23 Allergies Allergy/AdvReac Type Severity Reaction Status Date / Time latex Allergy Severe Itching Verified 12/19/24 19:25 Sulfa (Sulfonamide Allergy Severe Skin Rash Verified 12/19/24 19:25 Antibiotics) General Stated Complaint: Sorethroat NICO: 3 Exam Narrative Exam Narrative: Const: WDWN female in NAD. VS per triage. HEENT: NC/AT. Normal facial exam. Normal TMs bilaterally. Normal oropharynx. No sinus tenderness. Neck: Supple. Trachea midline. Tender, firm, enlarged bilateral submandibular salivary glands. No significant adenopathy. Lungs: Normal respiratory effort. Lungs are clear. Cor: RRR without murmur. Neuro: A+O x 3. Normal speech, mentation, gait. Cranial nerves II - XII grossly intact. No gross motor or sensory deficit. Course Vital Signs Vital signs: Vital Signs Pulse 96 H 12/19/24 19:22 Respiratory Rate 16 12/19/24 19:22 Blood Pressure 125/79 12/19/24 19:22 Pulse Oximetry 98 12/19/24 19:22 Pulse 96 H 12/19/24 19:26 Respiratory Rate 16 12/19/24 19:26 Blood Pressure 125/79 12/19/24 19:26 Pulse Oximetry 98 12/19/24 19:26 Pain Level 8 12/19/24 19:26 Medical Decision Making Patient presenting to ED with swelling under both sides of her jaw for the last few days. On exam this appears to be submandibular salivary glands which are firm and enlarged. She has some mild discomfort with palpation of the parotid glands but no significant swelling. There is no erythema or warmth. She does report having MMR x 2 as a child. She has not had fever. Her oropharynx looks fine. Nursing did obtain rapid strep which is negative. Doubt this is related to stones given the symmetric nature and suspect more likely viral. Should not be mumps if truly vaccinated but will send a titer. Will check CBC and CMP and obtain CT neck to confirm clinical suspicion and evaluate for any potential abscess. Patient's white count is somewhat elevated at 12.6. Chemistries, kidney function, liver function were all normal. CTA confirms submandibular cellulitis but no ductal dilatation. Do believe this is likely viral. Do not think she needs antibiotics at this point. Do recommend hydration, alternating acetaminophen with ibuprofen, isolation for the weekend until we get her mumps titer back. She will follow-up with primary care next week. Return precautions provided. Imaging Data Radiologic Study: Imaging: CT Scan Radiologist's impression: CT Neck - IMPRESSION: Mild bilateral submandibular sialitis without ductal dilation suggesting inflammatory or infectious causes. Thank you for allowing us to participate in the care of your patient. Dictated and Authenticated by: Trinity Dueñas MD Lab Data Lab results reviewed: Yes I reviewed the patient's lab results. Lab results narrative: see [facility] All Active Problems Submandibular sialoadenitis (Acute) Obesity (BMI 30.0-34.9) (Acute) Postcholecystectomy diarrhea (Acute) Irritable bowel syndrome with constipation and diarrhea (Acute) Migraine headache without aura (Acute) Chronic headache (Acute) Functional neurological symptom disorder with mixed symptoms (Acute) Medical History Anxiety and depression Conversion disorder with mixed symptom presentation Hemiplegia affecting R dominate side Paresthesia Fibromyalgia affecting multiple sites Chronic low back pain Anxiety Fibromyalgia Costochondritis Asthma Surgical History History of section x3 Hx of cholecystectomy History of partial hysterectomy Family History Maternal Aunt Headache Maternal Cousin Headache Maternal Grandmother Headache Mother Headache Social History Smoking/Tobacco Use Status: Never Smoking risk assessment performed?: Yes Alcohol Intake: current Alcohol Intake frequency: a few times a month Alcohol type: beer and wine Drug use: Never Substance use type: does not use Household members: significant other and children Housing: house Number of Children: 3 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
--- NOTE | 2024-12-19 20:30 | DI.CT_ITS ---
Exam(s) CT NECK W EXAM: CT NECK W INDICATION: bilateral submandibular swelling/tenderness. COMPARISON: CT CT BRAIN NECK CTA from 08/04/2020 TECHNIQUE: FINDINGS: VISUALIZED PARANASAL SINUSES: There is prominent mucosal thickening in the right maxillary sinus as well as a small fluid level. There is no fluid level in left maxillary sinus. There is a post inflammatory retention cyst in the lateral wall of the left maxillary sinus which measures 1 cm. No evidence of bone dehiscence. Sphenoid sinuses and ethmoidal air cells are clear as are the frontal sinuses and mastoid air cells. NASOPHARYNX: Unremarkable ORODENTAL: Unremarkable. OROPHARYNX: Unremarkable. No asymmetric masses evident. HYPOPHARYNX: Unremarkable. Valleculae and epiglottis and aryepiglottic folds appear normal. VOCAL CORDS: Unremarkable. No masses evident. Subglottic airway appears unremarkable. THYROID GLAND: Unremarkable. Normal size and no obvious nodules. SALIVARY GLANDS: Both parotid glands are fatty. No masses nor calculi in the parotid glands. There is symmetrical enhancement of both submandibular glands and both submandibular glands appear slightly prominent. There are no masses in the submandibular glands nor calculi. However, there is very mild fat streaking around both submandibular glands. LYMPH NODES: There are small benign-appearing sub platysmal lymph nodes bilaterally. There is no gross lymphadenopathy in the neck nor in the supraclavicular region. OTHER: VISUALIZED LUNG APICES: No significant findings. IMPRESSION: 1. Symmetrical mild enlargement and enhancement of the submandibular glands without obvious calculi evident. Suspect inflammatory or infectious etiology. 2. No other significant findings in the neck and no significant lymphadenopathy. 3. There is prominent mucosal thickening the right maxillary sinus as well as small amount of fluid therein indicating acute sinusitis on chronic. Remainder of the sinuses are clear with exception of a small retention cyst in the lateral wall the left maxillary sinus. There is no fluid level in left maxillary sinus. RADIATION DOSE DELIVERED: 238.45mGy.cm Total DLP DATA REPOSITORY: All CT scans at this facility are submitted to the National Radiology Data Registry (NRDR) Dose Index Registry (DIR) with the [employer] (ACR). RADIATION OPTIMIZATION: All CT scans at this facility use at least one of these dose optimization techniques: automated exposure control; mA and/or kV adjustment per patient size (includes targeted exams where dose is matched to clinical indication); or iterative reconstruction.
[2024-12-19] MEDS: Normal Saline 1,000 ML 1000 ML IV (20:46)
[2024-12-19 20:47] LABS: Abs Immature Grans 0.06 10^3/uL (0.0-0.06); HCT 36.9 % (36.0-46.0); HGB 11.8 g/dL (11.2-15.7); Immature Grans % 0.5 %; MCH 26.4 pg (27.0-33.0); MCHC 32.0 % (32.0-36.0); MCV 83 fL (80-95); MPV 12.8 fL (8.0-11.0); Platelet Count 141 10^3/uL (130-400); RBC 4.47 10^6/uL (3.93-5.22); RDW 12.5 % (11.7-14.6); RDW-SD 37.9 fL; WBC 12.59 10^3/uL (4.4-10.8)
[2024-12-19] MEDS: Ketorolac 15 MG/ML VIAL IVP (20:47)
[2024-12-19 21:07] LABS: ALT 39 U/L (14-59); AST 16 U/L (15-37); Albumin 4.1 g/dL (3.4-5.0); Alkaline Phosphatase 93 U/L (46-116); Anion Gap 8.9 mmol/L (3-11); BUN 11 mg/dL (7-18); Bilirubin, Total 0.6 mg/dL (0.2-1.0); CO2 30.1 mmol/L (21.0-32.0); Calcium 8.8 mg/dL (8.5-10.1); Chloride 104 mmol/L (98-107); Estimated GFR 124.58 (mL/min/1.73m2); Glucose 84 mg/dL (74-106); Potassium 3.6 mmol/L (3.5-5.1); Sodium 143 mmol/L (136-145); Total Protein 7.3 g/dL (6.4-8.2)
[2024-12-19] MEDS: Omnipaque 350 MG/ML 100 ML BTL IJ (21:32)
[2024-12-19] MEDS: Normal Saline - Diluent 50 ML VIAL IJ (21:32)
[2024-12-19 22:19] VITALS: BP 124/72; PULSE 81; RESP 18; O2SAT 100
--- NOTE | 2024-12-19 22:21 | DI.VRAD_ITS ---
PROCEDURE INFORMATION: Exam: CT Neck With Contrast Exam date and time: 12/19/2024 21:00 Age: 34 years old Clinical indication: Mass, lump, or swelling in neck; Bilateral submandibular swelling/tenderness TECHNIQUE: Imaging protocol: Computed tomography of the neck with contrast. Radiation optimization: All CT scans at this facility use at least one of these dose optimization techniques: automated exposure control; mA and/or kV adjustment per patient size (includes targeted exams where dose is matched to clinical indication); or iterative reconstruction. Contrast material: [id number]; Contrast volume: 100 ml; Contrast route: INTRAVENOUS (IV); COMPARISON: CT BRAIN NECK CTA 08/04/2020 14:08 FINDINGS: Paranasal sinuses: Mucosal thickening in paranasal sinuses with trace right maxillary sinus air-fluid level. Left maxillary sinus retention cyst most likely as well. Salivary glands: Fatty replacement of parotid glands without significant inflammation or ductal dilation. Bilateral submandibular glands appear mildly enlarged with trace surrounding edema, no ductal dilation. Pharynx: Unremarkable. No significant tonsillar enlargement. Larynx: Normal epiglottis. Thyroid: No enlarged or calcified nodules. Trachea: Visualized trachea is unremarkable. Lungs: Minimal apical pulmonary emphysema. Lymph nodes: Submandibular lymph nodes prominent in number but not pathologically enlarged. No significant adenopathy in the neck. Bones/joints: No acute fracture or subluxation. Reversal of the normal cervical lordosis. Soft tissues: No significant lesions or collections. IMPRESSION: Mild bilateral submandibular sialitis without ductal dilation suggesting inflammatory or infectious causes. Dictated and Authenticated by: Trinity Dueñas MD. Orderin Oren Aguilar MD
--- NOTE | 2024-12-19 22:21 | NUR.NOTE ---
2030. PT placed on droplet precautions Nursing Note:
[2024-12-19 22:52] VITALS: BP 121/74; PULSE 83; RESP 18; O2SAT 99
[2024-12-25 15:36] LABS: Index Value 0.36 (0.00-0.79); Mumps Ab, IgG Positive; Mumps Ab, IgM Negative (Negative)
== END 2024-12-19 22:52 | disposition home or self-care (01) ==
PROVIDERS: Emergency Provider Emergency Medicine; PCP Family Medicine
DX: K11.21 Acute sialoadenitis (principal)
CPT/HCPCS: 99285; 99284; 96374; 70491; 80053; 83735; 86735; 96361; 85025; 87081; J1885; J3490